=== PATIENT | female | born 1940 | race Caucasian/White ===

== ENCOUNTER 2020-03-07 12:19 | Outpatient (REF) | payer MEDICARE, MEDICAID, SELFPAY ==
--- NOTE | 2020-03-07 12:31 | MM_ITS ---
EXAMINATION: MM DIAGNOSTIC DIGITAL BREAST TOMOSYNTHESIS, BILATERAL CLINICAL INFORMATION: Invasive cancer status post right lumpectomy 04/03/2017. Due for yearly. COMPARISON: Mammography: 02/27/2019, 02/25/2018, 04/03/2017, 03/28/2017, 03/18/2017, 02/20/2017 TECHNIQUE: Digital breast tomosynthesis is performed in both the craniocaudal and mediolateral oblique views along with computer-aided detection (CAD). Synthesized 2D images are generated from the tomosynthesis. Additional magnification views right breast are obtained in the CC and ML x2 projections. FINDINGS: There are scattered areas of fibroglandular density (ACR BI-RADS breast composition Category b). There are minor post therapy changes on the right with stable scarring. There is dystrophic calcification and a right biopsy clip marker lower inner quadrant. Parenchymal pattern is similar to prior exams. There is no developing density or interval mass or architectural abnormality. Again, there are multiple bilateral punctate and coarse calcifications. No significant changes from prior studies. Results are provided to the patient at time of visit by the technologist. MM/MM tomosynthesis diagnostic BI IMPRESSION: No significant changes from prior study. Post therapy changes right breast. ASSESSMENT: BI-RADS 2: Benign RECOMMENDATION: Routine annual mammography screening. This patient's information was entered into a reminder system with a target due date for their next mammogram.
== END 2020-03-07 12:20 | disposition home or self-care (01) ==
LOC: HO.MAMMO 12:19
PROVIDERS: Visit Provider Surgery
DX: C50.411 Malignant neoplasm of upper-outer quadrant of right female breast (principal)
CPT/HCPCS: 77062; 77066

== ENCOUNTER 2020-03-15 11:10 | Outpatient (REF) | payer MEDICARE, MEDICAID, SELFPAY | END 2020-03-15 11:11 | disposition home or self-care (01) | LOC: HO.LAB 11:10 | PROVIDERS: PCP Internal Medicine; Visit Provider Internal Medicine | DX: Z20.828 Contact with and (suspected) exposure to other viral communicable diseases (principal) | CPT/HCPCS: 36415; C9803; U0003 ==

== ENCOUNTER 2020-07-14 08:02 | Outpatient (REF) | payer MEDICARE, MEDICAID, SELFPAY ==
--- NOTE | ~2020-07-14 | XR_ITS ---
EXAMINATION: XR KNEE, BILATERAL CLINICAL INFORMATION: Bilateral knee pain COMPARISON: None TECHNIQUE: AP standing views of both knees as well as lateral and sunrise views of both knees. FINDINGS: Right knee: Patient is status post right total knee arthroplasty. Prosthetic components appear in good alignment. No evidence of hardware fracture or loosening. No right knee effusion is noted. Two adjacent bony densities are seen superior and posterior in respect to the patella and may represent calcification within a suprapatellar bursa. Left knee: There is joint space narrowing seen medial more than lateral. There is subchondral cyst formation present. There is significant degenerative joint disease seen involving the patellofemoral joint with prominent facet and femoral head spurring present. No acute fracture. No significant effusion appreciated. XR/XR knee RT 2V IMPRESSION: Status post right total knee arthroplasty, as described, without acute fracture or malalignment of prosthetic components. Calcification seen just superior to the patella, as described. Significant degenerative change of the left knee, as described.
--- NOTE | ~2020-07-14 | XR_ITS ---
EXAMINATION: XR KNEE, BILATERAL CLINICAL INFORMATION: Bilateral knee pain COMPARISON: None TECHNIQUE: AP standing views of both knees as well as lateral and sunrise views of both knees. FINDINGS: Right knee: Patient is status post right total knee arthroplasty. Prosthetic components appear in good alignment. No evidence of hardware fracture or loosening. No right knee effusion is noted. Two adjacent bony densities are seen superior and posterior in respect to the patella and may represent calcification within a suprapatellar bursa. Left knee: There is joint space narrowing seen medial more than lateral. There is subchondral cyst formation present. There is significant degenerative joint disease seen involving the patellofemoral joint with prominent facet and femoral head spurring present. No acute fracture. No significant effusion appreciated. XR/XR knee standing BI IMPRESSION: Status post right total knee arthroplasty, as described, without acute fracture or malalignment of prosthetic components. Calcification seen just superior to the patella, as described. Significant degenerative change of the left knee, as described.
--- NOTE | ~2020-07-14 | XR_ITS ---
EXAMINATION: XR KNEE, BILATERAL CLINICAL INFORMATION: Bilateral knee pain COMPARISON: None TECHNIQUE: AP standing views of both knees as well as lateral and sunrise views of both knees. FINDINGS: Right knee: Patient is status post right total knee arthroplasty. Prosthetic components appear in good alignment. No evidence of hardware fracture or loosening. No right knee effusion is noted. Two adjacent bony densities are seen superior and posterior in respect to the patella and may represent calcification within a suprapatellar bursa. Left knee: There is joint space narrowing seen medial more than lateral. There is subchondral cyst formation present. There is significant degenerative joint disease seen involving the patellofemoral joint with prominent facet and femoral head spurring present. No acute fracture. No significant effusion appreciated. XR/XR knee LT 2V IMPRESSION: Status post right total knee arthroplasty, as described, without acute fracture or malalignment of prosthetic components. Calcification seen just superior to the patella, as described. Significant degenerative change of the left knee, as described.
== END 2020-07-14 08:03 | disposition home or self-care (01) ==
LOC: HO.HOSX 08:02
PROVIDERS: Visit Provider Orthopaedic Surgery
DX: M17.12 Unilateral primary osteoarthritis, left knee (principal); I48.91 Unspecified atrial fibrillation; Z79.01 Long term (current) use of anticoagulants
CPT/HCPCS: 73560; 73565; 99202

== ENCOUNTER → 2020-08-25 09:58 | Outpatient (BNVA) | payer MEDICARE, MEDICAID, SELFPAY | PROVIDERS: PCP Internal Medicine; Visit Provider Orthopaedic Surgery ==

== ENCOUNTER → 2020-09-22 13:09 | Outpatient (BNVA) | payer MEDICARE, MEDICAID, SELFPAY | PROVIDERS: Visit Provider Physician Assistant | DX: M17.12 Unilateral primary osteoarthritis, left knee (principal) | CPT/HCPCS: 99212 ==

== ENCOUNTER 2020-09-26 09:00 | Outpatient (RCR) | payer MEDICARE, MEDICAID, SELFPAY | END 2021-09-22 13:27 | disposition home or self-care (01) | LOC: HO.PTWFD 09:00 | PROVIDERS: PCP Internal Medicine; Visit Provider Orthopaedic Surgery | DX: M17.12 Unilateral primary osteoarthritis, left knee (principal) | CPT/HCPCS: 97110; 97116; 97161; 97535 ==

== ENCOUNTER 2020-09-27 06:06 | Day surgery (SDC) | payer MEDICARE, MEDICAID, SELFPAY ==
--- NOTE | 2020-09-19 11:43 | HO.ANESPROP2 ---
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 on right Eliquis for afib PCP cleared Cardiac cleared NO BP/IV on RIGHT PMFSH Active Problems Active Problems: All Active Problems (Updated 09/19/20 @ 09:27 by Tanisha Vidal) Malignant neoplasm of upper-outer quadrant of right female breast (Acute) Osteoarthritis of left knee (Acute) Past Medical History Medical History Afib Asthma Breast cancer Chronic cough CKD (chronic kidney disease), stage III COVID-19 vaccine series completed Deafness in right ear GERD (gastroesophageal reflux disease) High blood pressure High cholesterol History of syncope On anticoagulant therapy On beta sloan at home Osteoarthritis of left knee Post-nasal drip Family History Family history of problems with anesthesia: No Surgical History Surgical History H/O eye surgery H/O lumpectomy History of appendectomy Hx of cataract extraction Hx of colonoscopy Status post right knee replacement History of Problems with Anesthesia: No Social History Social History Are you a primary care management coordinator to a significant other at home: No Do you presently have visiting nurse or other home services: No Patient Tobacco Use Status: Never used Tobacco Use of substances other than those prescribed or required for medical reasons: No Have you been hit, kicked, punched, or otherwise hurt by someone within the past year? If so, by whom?: No Are you DNR?: No Advance Directives: No Advance Directives Information Provided: No Advance Directives on File: No Recently lost weight without trying: No Eating poorly because of decreased appetite: No Nutrition Risks: No Nutritional Risk Patient : No Current occupational status: retired Current occupation: rt handed Narrative Narrative: No recent illness No CP/SOB within limits of knee pain Meds Allergies Allergy/AdvReac Type Severity Reaction Status Date / Time dorzolamide [DORZOLAMIDE] Allergy Intermediate ITCHING, Verified 09/19/20 09:19 SEVERE EYE REDNESS, redness, discharge from eyes certain eye drop (pt unsure) Allergy Unknown inflammatio Uncoded 09/19/20 09:19 n Home Medications Medication Instructions Recorded Confirmed Last Taken Type aspirin 81 mg chewable tablet 81 mg PO BEDTIME 07/14/20 09/19/20 Unknown History flecainide 50 mg tablet 50 mg PO Q12H 07/14/20 09/19/20 09/27/20 History montelukast 10 mg tablet 10 mg PO BEDTIME 07/14/20 09/19/20 Unknown History albuterol sulfate [ProAir HFA] 1 inh INHALATION QID PRN 09/19/20 09/19/20 Unknown History amlodipine 1 tab PO DAILY 09/19/20 09/19/20 09/27/20 History apixaban [Eliquis] 1 tab PO BID 09/19/20 09/19/20 09/23/20 History atorvastatin 1 tab PO BEDTIME 09/19/20 09/19/20 Unknown History betamethasone dipropionate 1 applic TOPICAL BID 09/19/20 09/19/20 Unknown History bisoprolol fumarate 5 mg PO DAILY 09/19/20 09/19/20 Unknown History calcium carbonate [Calcium 500] 1,000 mg PO BEDTIME 09/19/20 09/19/20 Unknown History cholecalciferol (vitamin D3) 25 mcg PO DAILY 09/19/20 09/19/20 Unknown History [Vitamin D3] famotidine [Pepcid AC] 10 mg PO DAILY 09/19/20 09/19/20 Unknown History fluticasone propionate 1 spray INTRANASAL DAILY 09/19/20 09/19/20 Unknown History irbesartan 1 tab PO DAILY 09/19/20 09/19/20 09/27/20 History latanoprost 1 drp OPHTHALMIC (EYE) BEDTIME 09/19/20 09/19/20 Unknown History lorazepam 1 tab PO DAILY PRN 09/19/20 09/19/20 Unknown History Exam Exam Date and Time: September 19, 2020 1143 Pertinent Lab Results Pertinent Lab Results: Lab Results 09/19/20 09/19/20 Range/Units 13:28 Unknown Nasal Screen MRSA (PCR) NEGATIVE (Negative) Nasal S. aureus Screen NEGATIVE (Negative) Nasal MRSA/S.aureus Interp SEE NOTE Blood Type O Positive Antibody Screen NEGATIVE Na 135 K 4.9 Cl 98 Bicarb 28 BUN 22 Creat 1.1 eGFR 49 WBC 8.2 Hgb 12.3 Hct 38.7 Plt 323 Narrative Narrative: EKG 08/2020 SR with 1st deg AV block Incomp RBBB No significant change from 07/2020 Airway Mallampati Class: II TM Dist: >3cm Neck ROM: Full Partial: Upper Loose/Missing/Broken Teeth: No Heart: silver, sinus Lungs: CTAB Assessment and Plan Assessment Anesthesia Assessment: Anesthesia Plan Discussed and PAT Visit Documented by User: Rachel Hawkins 09/27/20 07:18 PMFSH Past Medical History Medical History Afib Asthma Breast cancer Chronic cough CKD (chronic kidney disease), stage III COVID-19 vaccine series completed Deafness in right ear GERD (gastroesophageal reflux disease) High blood pressure High cholesterol History of syncope On anticoagulant therapy On beta sloan at home Osteoarthritis of left knee Post-nasal drip Surgical History Surgical History H/O eye surgery H/O lumpectomy History of appendectomy Hx of cataract extraction Hx of colonoscopy Status post right knee replacement Social History Social History Are you a primary care management coordinator to a significant other at home: No Do you presently have visiting nurse or other home services: No Patient Tobacco Use Status: Never used Tobacco Use of substances other than those prescribed or required for medical reasons: No Have you been hit, kicked, punched, or otherwise hurt by someone within the past year? If so, by whom?: No Are you DNR?: No Advance Directives: No Advance Directives Information Provided: No Advance Directives on File: No Recently lost weight without trying: No Eating poorly because of decreased appetite: No Nutrition Risks: No Nutritional Risk Patient : No Current occupational status: retired Current occupation: rt handed Meds Allergies Allergy/AdvReac Type Severity Reaction Status Date / Time dorzolamide [DORZOLAMIDE] Allergy Intermediate ITCHING, Verified 09/19/20 09:19 SEVERE EYE REDNESS, redness, discharge from eyes certain eye drop (pt unsure) Allergy Unknown inflammatio Uncoded 09/19/20 09:19 n Home Medications Medication Instructions Recorded Confirmed Last Taken Type aspirin 81 mg chewable tablet 81 mg PO BEDTIME 07/14/20 09/19/20 Unknown History flecainide 50 mg tablet 50 mg PO Q12H 07/14/20 09/19/20 09/27/20 History montelukast 10 mg tablet 10 mg PO BEDTIME 07/14/20 09/19/20 Unknown History albuterol sulfate [ProAir HFA] 1 inh INHALATION QID PRN 09/19/20 09/19/20 Unknown History amlodipine 1 tab PO DAILY 09/19/20 09/19/20 09/27/20 History apixaban [Eliquis] 1 tab PO BID 09/19/20 09/19/20 09/23/20 History atorvastatin 1 tab PO BEDTIME 09/19/20 09/19/20 Unknown History betamethasone dipropionate 1 applic TOPICAL BID 09/19/20 09/19/20 Unknown History bisoprolol fumarate 5 mg PO DAILY 09/19/20 09/19/20 Unknown History calcium carbonate [Calcium 500] 1,000 mg PO BEDTIME 09/19/20 09/19/20 Unknown History cholecalciferol (vitamin D3) 25 mcg PO DAILY 09/19/20 09/19/20 Unknown History [Vitamin D3] famotidine [Pepcid AC] 10 mg PO DAILY 09/19/20 09/19/20 Unknown History fluticasone propionate 1 spray INTRANASAL DAILY 09/19/20 09/19/20 Unknown History irbesartan 1 tab PO DAILY 09/19/20 09/19/20 09/27/20 History latanoprost 1 drp OPHTHALMIC (EYE) BEDTIME 09/19/20 09/19/20 Unknown History lorazepam 1 tab PO DAILY PRN 09/19/20 09/19/20 Unknown History Assessment and Plan Assessment Anesthesia Assessment: Anesthesia Plan Discussed and Chart Reviewed Final Anesthetic Review NPO: Yes ASA Class: III Final Preanesthetic Review: No Changes in Pt Med Stat, Meds/Allgs Chart Reviewed and Consent Obtained/Reviewed Patient Risk: Intermediate Procedure Risk: Intermediate Assessment/Block/Sedation in SS: Assess/Block/Sedation-SS Anesthetic Plan Anesthetic Plan: MAC:, Spinal and Regional Block Disposition: Standard PACU
[2020-09-19 12:20] VITALS: BP 162/72; PULSE 58; RESP 20; O2SAT 97; BMI 31.8
[2020-09-19 15:06] LABS: MRSA Nasal PCR NEGATIVE (Negative); SA Nasal PCR NEGATIVE (Negative)
[2020-09-27] VITALS (21 sets, daily range): BP systolic 101–154; BP diastolic 40–67; PULSE 55–71; RESP 12–18; TEMP 35.7–36.6; O2SAT 90–100
--- NOTE | 2020-09-27 | ECG_ITS ---
Test Reason : Syncope, 1 degree block on monitor Blood Pressure : / mmHG Vent. Rate : 081 BPM Atrial Rate : 081 BPM P-R Int : 238 ms QRS Dur : 098 ms QT Int : 370 ms P-R-T Axes : 101 026 050 degrees QTc Int : 429 ms Sinus rhythm with 1st degree A-V block RSR' or QR pattern in V1 suggests right ventricular conduction delay Borderline ECG When compared with ECG of 04-DEC-2019 20:17, No significant change was found Referred By: Robin River Electronically Signed By:LORRAINE BRIONES MD
--- NOTE | ~2020-09-27 | XR_ITS ---
EXAMINATION: XR KNEE, LEFT CLINICAL INFORMATION: Status post left total knee arthroplasty. COMPARISON: Standing AP knees and left knee 07/14/2020. TECHNIQUE: AP and cross table lateral views of the left knee are obtained. FINDINGS: There has been total left knee arthroplasty. The hardware is intact. There is no fracture or dislocation or destructive process. There are overlying skin kacie, subcutaneous emphysema and effusion as expected. XR/XR knee LT 2V IMPRESSION: Status post left total knee arthroplasty.
[2020-09-27 06:51] LABS: COVID-19 Test Negative (Negative)
[2020-09-27] MEDS: Lactated Ringers 1,000 ML 80 ML IVCONT (07:07)
--- NOTE | 2020-09-27 07:11 | PC.NURSE ---
dr morales at bedside doing regional block pt tolerated well
--- NOTE | 2020-09-27 07:15 | PC.NURSE ---
pt resting comfortably after block denies pain pwd nad ls clear resp easy and reg
--- NOTE | 2020-09-27 07:27 | MHC.SHP ---
Pre-Procedural Eval Section A Date of Service: 09/27/20 The patient is an INPATIENT: No Changes since office visit: Yes Patient answered all questions; No Cold of Flu in the past 2 weeks, No New Medical Problems and No Changes in Medication The History & Physical has been completed within 30 days and I have reviewed it.: Yes Section B Chief Complaint: Right total knee arthroplasty Allergies: Allergies Allergy/AdvReac Type Severity Reaction Status Date / Time dorzolamide [DORZOLAMIDE] Allergy Intermediate ITCHING, Verified 09/19/20 09:19 SEVERE EYE REDNESS, redness, discharge from eyes certain eye drop (pt unsure) Allergy Unknown inflammatio Uncoded 09/19/20 09:19 n Plan I have reviewed the history and physical and performed a pertinent physical examination on my patient. No changes have occurred unless specified.
--- NOTE | 2020-09-27 09:20 | PM.OP ---
Brief Operative Note Date of Service: 09/27/20 Pre-op diagnosis: left knee OA Post-op diagnosis: same Procedure: Left TKA Implants: [place] [employer] 3CR/06/21/28 Surgeon: Hal Sal MD Anesthesia: regional and spinal Was an Personalization Specialist used for this Procedure?: Yes Personalization Specialist: Billy Fajardo Estimated blood loss (mL): 100 IV fluids (mL): 1,000 Pathology: other Condition: stable Disposition: PACU
--- NOTE | 2020-09-27 09:21 | P.OP_ITS ---
Operative Note Operative Note Date of Service: 09/27/20 Narrative: Pre-op diagnosis: left knee OA Post-op diagnosis: same Procedure: Left TKA Implants: [place] tri[employer] 3CR/06/21/28 Surgeon: Hal Sal MD Anesthesia: regional and spinal Was an Construction Project Administrator used for this Procedure?: Yes Construction Project Administrator: Billy Fajardo Estimated blood loss (mL): 100 IV fluids (mL): 1,000 Pathology: other Condition: stable Disposition: PACU Procedure in detail: Patient was brought to the operating room and prepped and draped in standard sterile fashion. A time-out was called to identify proper site proper procedure proper surgeon IV antibiotics were administered. 1 g of IV tranexamic acid was also administered. I began by making a midline incision to the retinaculum and performed a medial parapatellar arthrotomy. The patella was translated laterally and the knee was flexed up. ___There was tricomparmental OA with patellar and lateral eburnation. I performed a small medial peel and resected the infrapatellar fat pad. Ringgold's line was then used to drill my intramedullary femoral guide and my distal femur cut was made in 5 degrees of valgus. I then measured a # _3__ femur and placed my cutting guide and made my anterior posterior and chamfer cuts protecting the soft tissues at all times. Once I was satisfied with my cut I turned my attention to the tibia. I removed the meniscus and , using an external cutting guide, in line with the tibial crest and the third ray, I made my distal tibial cut ( 3 deg slope) while protecting the PCL the posterior soft tissues at all times. An extension block was used to confirm appropriate amount of bony resection. I then sized a #_4__ tibia and once I was satisfied that there was good tibial coverage I placed my trial and with the trial femur in place took the knee through range of motion. I wassatisfied with the extension and flexion as well as the stability at 0, 30 and 90 degrees. I then turned my attention to the patella where I removed 1 cm from the undersurface of the patella and then trialed a ___29a___ patellar button. Again the knee was taken through range of motion I was happy with the tracking. I then returned to the femur and drilled my femoral lug holes and prepared the tibia. Femoral bone plug was then placed and the knee was irrigated copiously. I then press fit the patella, tibia and femur in standard fashion. I trialed different inserts until I selected a #___13mm_ insert. The final insert was placed and a 3 minutes iodine soak with local TXA was performed. The knee was then closed with a running Quill suture, a 3 0 Vicryl and kacie on the skin. Patient was then placed in sterile dressing and brought to recovery room in stable condition there were no known complications.
[2020-09-27] MEDS: oxyCODONE HCl Immed Release 5 MG TABLET PO ×3 (12:11→20:16)
[2020-09-27] MEDS: Dextrose 5 % and 0.45 % NaCl 1,000 ML 80 ML IVCONT (13:34)
--- NOTE | 2020-09-27 14:42 | PM.EVENT ---
Event Note Date of Service: 09/27/20 Event Note: Rapid Response called on patient. Patient was in the seat when I arrived. Reportedly she was working with PT when she began feeling lightheaded and faint so she was brought to the chair. No actual loss of consciousness. Saturations in the 90s, BP checked several times, reading in the 50s and 60s systolic. Patient remained alert and was talking the entire time. She was placed in the recliner. She slowly began to improve slowly. A/P Suspected orthostatic near syncope Will give NS bolus x 1L Check stat labs Place on radioactivity technician
--- NOTE | 2020-09-27 15:30 | PM.IMCN ---
History of Present Illness Data of Consult Service Date: 09/27/20 Requesting physician: Hal Sal Primary Care Provider: Amairani Jansen MD [facility] Reason for consult: Medical Management This is a 80 yo F with a PMH of HTN, HLD, A. Fib - maintained in sinus with flecainide and on Eliquis, Glaucoma who is admitted under the orthopedic surgery for scheduled L TKA. Medical consultation sought for management of her chronic medical issues. Patient is seen and examined in her room. She was shortly evaluated prior to this after a rapid response was called for near syncope. She now is sitting comfortably in her chair and has no complaints. She denies any chest pain or shortness of breath. She reports a history of A. Fib - maintained on sinus with flecainide, on Eliquis for anticoagulation. She denies a history of CHF. Review of Systems Review of Systems: General - denies fevers or chills, denies weakness or fatigue HEENT -denies blurred vision, denies headache, denies sore throat Cardiovascular - denies chest pain or palpitations, denies edema Respiratory - denies shortness of breath, coughing, wheezing Gastrointestinal - denies abdominal pain, nausea, vomiting, diarrhea - denies flank pain, denies dysuria, denies frequency or urgency Musculoskeletal - denies back pain, denies hip pain, denies knee pain, denies shoulder pain Neurological - denies any focal weakness or numbness Skin, denies any bruising or redness Psychiatric - denies any suicidal ideation, hallucinations, homicidal ideation Endocrinology - denies intolerance to hot / cold temperatures [facility] Medical History Afib Asthma Breast cancer Chronic cough CKD (chronic kidney disease), stage III COVID-19 vaccine series completed Deafness in right ear GERD (gastroesophageal reflux disease) High blood pressure High cholesterol History of syncope On anticoagulant therapy On beta sloan at home Osteoarthritis of left knee Post-nasal drip Surgical History H/O eye surgery H/O lumpectomy History of appendectomy Hx of cataract extraction Hx of colonoscopy Status post right knee replacement Social History Are you a primary career discovery teacher to a significant other at home: No Do you presently have visiting nurse or other home services: No Patient Tobacco Use Status: Never used Tobacco Use of substances other than those prescribed or required for medical reasons: No Have you been hit, kicked, punched, or otherwise hurt by someone within the past year? If so, by whom?: No Are you DNR?: No Advance Directives: No Advance Directives Information Provided: No Advance Directives on File: No Recently lost weight without trying: No Eating poorly because of decreased appetite: No Nutrition Risks: No Nutritional Risk Patient : No Current occupational status: retired Current occupation: rt handed Meds Allergies Allergy/AdvReac Type Severity Reaction Status Date / Time dorzolamide [DORZOLAMIDE] Allergy Intermediate ITCHING, Verified 09/19/20 09:19 SEVERE EYE REDNESS, redness, discharge from eyes certain eye drop (pt unsure) Allergy Unknown inflammatio Uncoded 09/19/20 09:19 n Active Medications: Current Medications Generic Name Dose Route Start Last Admin Trade Name Freq PRN Reason Stop Dose Admin Acetaminophen 650 mg 09/27/20 13:11 Acetaminophen 325 Mg Tablet PO Q6H PRN Pain, Mild (Pain Scale 1-3) Atorvastatin Calcium 20 mg 09/27/20 21:00 Atorvastatin Calcium 20 Mg Tablet PO BEDTIME TONY Bisoprolol Fumarate 5 mg 09/28/20 09:00 Bisoprolol Fumarate 5 Mg Tablet PO DAILY TONY Calcium Carbonate 1,000 mg 09/27/20 21:00 Calcium Carbonate 500 Mg Tablet PO BEDTIME TONY Celecoxib 200 mg 09/27/20 21:00 Celecoxib 200 Mg Capsule PO BID TONY Docusate Sodium 100 mg 09/27/20 21:00 Docusate Sodium 100 Mg Capsule PO BID TONY Famotidine 10 mg 09/28/20 09:00 Famotidine 20 Mg Tablet PO DAILY TONY Flecainide Acetate 50 mg 09/27/20 20:00 Flecainide Acetate 50 Mg Tablet PO Q12H TONY Hydromorphone HCl 0.25 mg 09/27/20 13:11 Hydromorphone Hcl 0.5 Mg/0.5 Ml Syringe IVPUSH Q4H PRN Pain, Severe (Pain Scale 7-10) Dextrose/Sodium Chloride 1,000 mls @ 80 mls/hr 09/27/20 13:11 09/27/20 13:34 D51/2ns IVCONT 80 mls/hr .[id number] [facility] Administration Sodium Chloride 1,000 mls @ 999 mls/hr 09/27/20 14:45 Ns IV 09/27/20 15:45 .Q1H1M [facility] Latanoprost 1 drop 09/27/20 21:00 Latanoprost 0.005 % Ophth Armida 2.5 Ml Drops EYE-BOTH BEDTIME [facility] Naloxone HCl 0.2 mg 09/27/20 13:11 Naloxone Hcl 0.4 Mg/Ml Vial IVPUSH Q2M PRN Excessive sedation or RR < 8 Ondansetron HCl 4 mg 09/27/20 13:11 Ondansetron Hcl 4 Mg/2 Ml Vial IVPUSH Q8H PRN Nausea and Vomiting Oxycodone HCl 5 mg 09/27/20 16:00 Oxycodone Hcl Immed Release 5 Mg Tablet PO Q4H [facility] Sodium Chloride 3 ml 09/27/20 16:00 0.9 % Sodium Chloride Flush 3 Ml Syringe IVFLUSH QSHIFT [facility] Vitamin D 25 mcg 09/28/20 09:00 Cholecalciferol (Vitamin D3) 25 Mcg Tablet PO DAILY [facility] Home Medications Medication Instructions Recorded Confirmed Last Taken Type aspirin 81 mg chewable tablet 81 mg PO BEDTIME 07/14/20 09/19/20 Unknown History montelukast 10 mg tablet 10 mg PO BEDTIME 07/14/20 09/19/20 Unknown History albuterol sulfate [ProAir HFA] 1 inh INHALATION QID PRN 09/19/20 09/19/20 Unknown History amlodipine 1 tab PO DAILY 09/19/20 09/19/20 09/27/20 History apixaban [Eliquis] 1 tab PO BID 09/19/20 09/19/20 09/23/20 History atorvastatin 1 tab PO BEDTIME 09/19/20 09/19/20 Unknown History betamethasone dipropionate 1 applic TOPICAL BID 09/19/20 09/19/20 Unknown History bisoprolol fumarate 5 mg PO DAILY 09/19/20 09/19/20 Unknown History calcium carbonate [Calcium 500] 1,000 mg PO BEDTIME 09/19/20 09/19/20 Unknown History cholecalciferol (vitamin D3) 25 mcg PO DAILY 09/19/20 09/19/20 Unknown History [Vitamin D3] famotidine [Pepcid AC] 10 mg PO DAILY 09/19/20 09/19/20 Unknown History fluticasone propionate 1 spray INTRANASAL DAILY 09/19/20 09/19/20 Unknown History irbesartan 1 tab PO DAILY 09/19/20 09/19/20 09/27/20 History latanoprost 1 drp OPHTHALMIC (EYE) BEDTIME 09/19/20 09/19/20 Unknown History lorazepam 1 tab PO DAILY PRN 09/19/20 09/19/20 Unknown History flecainide 1 tab PO Q12H 09/27/20 09/27/20 Unknown History Physical Exam Vital Signs and Narrative: Vital Signs: Last Vital Signs Temp 96.2 F L 09/27/20 15:26 Pulse 65 09/27/20 15:26 Resp 12 09/27/20 15:26 BP 122/40 L 09/27/20 15:26 Pulse Ox 100 09/27/20 15:26 Body Mass Index 31.8 Const: Other: General - no acute distress, appears comfortable Cardiovascular - RRR on exam Lungs - normal respiratory effort, clear to auscultation bilaterally, no wheezing Abdomen - soft, nontender, no rebound or guarding Extremities - no edema Neuro - awake and alert, no focal deficits Results Labs Labs: Laboratory Results - last 24 hr 09/27/20 06:15 COVID-19 (MARNIE) Negative COVID-19 Clin Com See Note Imaging Radiologist's Impressions: Impressions Knee X-Ray 09/27/20 09:50 IMPRESSION: Status post left total knee arthroplasty. Assessment and Plan (1) Osteoarthritis of left knee: Status: Acute This is a 80 yo F with a PMH of A. Fib on flec and eliquis who is admitted after L TKA. 1. Syncope suspected orthostatic -- bp as in the 60s while sitting. Improved to 122/40 with 1L IVF will check labs and place on tele over night 2. A. Fib clinically appears to be in Sinus. Continue BB and flecainide continue Eliquis when okay from surgical perspective 3. HTN hold BP meds (minus BB for A. Fib) 4. HLD statin Will Follow
[2020-09-27 15:37] LABS: Hematocrit 31.9 % (37-47); Hemoglobin 10.4 g/dl (12.0-16.0); Mean Corpuscular HGB Conc 32.6 g/dl (31.0-35.0); Mean Corpuscular Volume 95.2 fL (80-98); Mean Platelet Volume 9.1 fL (9.4-12.3); Platelet Count 273 X10*3/uL (160-400); Red Blood Count 3.35 X10*6/uL (4.20-5.50); Red Cell Distribution Width 13.7 % (11.0-16.0); White Blood Count 17.4 X10*3/uL (4.8-10.8)
[2020-09-27] MEDS: 0.9 % Sodium Chloride 1,000 ML 999 ML IV (15:37)
[2020-09-27] MEDS: Acetaminophen 325 MG TABLET 650 MG PO (15:37)
[2020-09-27 16:08] LABS: Anion Gap 16 (12-20); Blood Urea Nitrogen 36 mg/dL (9-16); Calcium 9.2 mg/dL (8.4-10.2); Carbon Dioxide 22 mmol/L (22-29); Chloride 103 mmol/L (96-108); Creatinine Clr Calc Pharmacy 40.5; Estimated Glomerular Filt Rate 46; Glucose Random 219 mg/dL (60-115); Potassium 5.1 mmol/L (3.3-5.1); Sodium 136 mmol/L (135-145)
--- NOTE | 2020-09-27 18:12 | PC.NURSE ---
around 1500 pt was working with PT for the first time s/p left total knee replacement. rapid response called. this nurse responded to call and pt was awake, but vague, pale, cool and clammy. BP checked and found to be 30s/20, recheck was 40s/20s with automated cuff, SPO2 was also low in the 70s-80s. Manual BP showed 60/40 and oxygen had come up to 100% on 2L. pt answering questions appropriately, but reported changes in vision. MD in room ordered a bolus of NS. administered bolus and rechecked BP, came up to 122/40. 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 Pt now resting comfortably, vision back to baseline and no other symptoms reported, back in bed. Will cont to monitor and assess.
[2020-09-27] MEDS: Celecoxib 200 MG CAPSULE PO (20:17)
[2020-09-27] MEDS: Docusate Sodium 100 MG CAPSULE PO (20:17)
[2020-09-27] MEDS: Flecainide Acetate 50 MG TABLET PO (20:17)
[2020-09-27] MEDS: Atorvastatin Calcium 20 MG TABLET PO (20:17)
[2020-09-27] MEDS: HYDROmorphone HCl 0.5 MG/0.5 ML SYRINGE 0.25 MG IVPUSH (22:01)
[2020-09-28] VITALS (16 sets, daily range): BP systolic 106–142; BP diastolic 46–65; PULSE 68–81; RESP 16–18; TEMP 36.1–36.5; O2SAT 93–95
[2020-09-28] MEDS: oxyCODONE HCl Immed Release 5 MG TABLET PO ×5 (00:37→19:43)
[2020-09-28] MEDS: Dextrose 5 % and 0.45 % NaCl 1,000 ML 80 ML IVCONT (03:09)
[2020-09-28] MEDS: HYDROmorphone HCl 0.5 MG/0.5 ML SYRINGE 0.25 MG IVPUSH ×3 (03:16→21:23)
[2020-09-28 07:32] LABS: Anion Gap 13 (12-20); Blood Urea Nitrogen 25 mg/dL (9-16); Calcium 9.2 mg/dL (8.4-10.2); Carbon Dioxide 26 mmol/L (22-29); Chloride 101 mmol/L (96-108); Creatinine Clr Calc Pharmacy 54.2; Estimated Glomerular Filt Rate > 60; Glucose Fasting 137 mg/dL (60-99); Potassium 5.7 mmol/L (3.3-5.1); Sodium 134 mmol/L (135-145)
--- NOTE | 2020-09-28 08:02 | PM.PNORT ---
Subjective Subjective Date of Service: 09/28/20 Interval history: POD1 s/p LTKA with Dr. Sal. Patient is resting comfortably in bed. Yesterday had a near syncopal episode after standing and working with P.T. She was given a bolus and today states that she is feeling better. Pain is well managed. Physical Exam Vital Signs: Vital Signs: Last Vital Signs Temp 97.2 F 09/28/20 07:33 Pulse 71 09/28/20 07:33 Resp 17 09/28/20 07:33 BP 127/60 09/28/20 07:33 Pulse Ox 95 09/28/20 07:33 Body Mass Index 31.8 Const: General: cooperative, healthy appearing and no acute distress Resp: Effort & Inspection: normal respiratory effort and able to speak in complete sentences Cardio: Rate: regular rate Peripheral pulses: Peripheral pulses 2+ throughout GI: Palpation (GI): Soft to palpation Skin: Lesions: no lesions Rashes: no rashes Extrem: Other: Left hip no ecchymosis, redness, or drainage. Aquacel dressing is clean, dry and intact. NVI. Progress Note: A&P Assessment and plan (1) Status post total knee replacement, left: Status: Acute Assessment and Plan: Continue pain mgmnt Begin Lovenox for the first 48 hours post operatively and then resume Eliquis 5mg for one day and then return to regular 5mg BID dose for dvt ppx Continue PT for LTKA Dispo planning-Pending PT eval, pain mgmnt Fall Risk Details Current Medications: Current Medications Generic Name Dose Route Start Last Admin Trade Name Freq PRN Reason Stop Dose Admin Acetaminophen 650 mg 09/27/20 13:11 09/27/20 15:37 Acetaminophen 325 Mg Tablet PO 650 mg Q6H PRN Administration Pain, Mild (Pain Scale 1-3) Apixaban 5 mg 09/29/20 20:00 Apixaban 5 Mg Tablet PO 09/29/20 20:01 ONCE ONE Apixaban 5 mg 09/30/20 09:00 Apixaban 5 Mg Tablet PO BID TONY Atorvastatin Calcium 20 mg 09/27/20 21:00 09/27/20 20:17 Atorvastatin Calcium 20 Mg Tablet PO 20 mg BEDTIME TONY Administration Bisoprolol Fumarate 5 mg 09/28/20 09:00 Bisoprolol Fumarate 5 Mg Tablet PO DAILY TONY Calcium Carbonate 1,000 mg 09/27/20 21:00 09/27/20 20:17 Calcium Carbonate 500 Mg Tablet PO 1,000 mg BEDTIME [facility] Administration Celecoxib 200 mg 09/27/20 21:00 09/27/20 20:17 Celecoxib 200 Mg Capsule PO 200 mg BID [facility] Administration Docusate Sodium 100 mg 09/27/20 21:00 09/27/20 20:17 Docusate Sodium 100 Mg Capsule PO 100 mg BID [facility] Administration Enoxaparin Sodium 40 mg 09/28/20 08:00 Enoxaparin Sodium 40 Mg/0.4 Ml Syringe SUBCUT 09/29/20 08:01 Q24H [facility] Famotidine 10 mg 09/28/20 09:00 Famotidine 20 Mg Tablet PO DAILY [facility] Flecainide Acetate 50 mg 09/27/20 20:00 09/27/20 20:17 Flecainide Acetate 50 Mg Tablet PO 50 mg Q12H [facility]ONY Administration Hydromorphone HCl 0.25 mg 09/27/20 13:11 09/28/20 03:16 Hydromorphone Hcl 0.5 Mg/0.5 Ml Syringe IVPUSH 0.25 mg Q4H PRN Administration Pain, Severe (Pain Scale 7-10) Dextrose/Sodium Chloride 1,000 mls @ 80 mls/hr 09/27/20 13:11 09/28/20 03:09 D51/2ns IVCONT 80 mls/hr .[id number] [facility] Administration Latanoprost 1 drop 09/27/20 21:00 09/27/20 20:19 Latanoprost 0.005 % Ophth Armida 2.5 Ml Drops EYE-BOTH Not Given BEDTIME [facility] Naloxone HCl 0.2 mg 09/27/20 13:11 Naloxone Hcl 0.4 Mg/Ml Vial IVPUSH Q2M PRN Excessive sedation or RR < 8 Ondansetron HCl 4 mg 09/27/20 13:11 Ondansetron Hcl 4 Mg/2 Ml Vial IVPUSH Q8H PRN Nausea and Vomiting Oxycodone HCl 5 mg 09/27/20 16:00 09/28/20 05:33 Oxycodone Hcl Immed Release 5 Mg Tablet PO Not Given Q4H [facility] Sodium Chloride 3 ml 09/27/20 16:00 09/27/20 20:20 0.9 % Sodium Chloride Flush 3 Ml Syringe IVFLUSH Not Given QSHIFT TONY Vitamin D 25 mcg 09/28/20 09:00 Cholecalciferol (Vitamin D3) 25 Mcg Tablet PO DAILY TONY Time Spent With Patient Time: Total time spent is greater than 50% in coordination of care (as documented) at patient's floor/unit and/or counseling patient: Time with patient: less than 15 minutes Procedures Date of Service Date of Service: 09/28/20 Quality Stroke Does the patient have a stroke diagnosis?: No VTE Prior VTE?: No VTE Risk Level:: Surgical - high VTE Device Contraindication: N/A - Device Ordered VTE Drug Contraindication: N/A - Med Ordered
[2020-09-28] MEDS: Docusate Sodium 100 MG CAPSULE PO ×2 (08:45→19:43)
[2020-09-28] MEDS: Celecoxib 200 MG CAPSULE PO ×2 (08:45→19:43)
[2020-09-28] MEDS: Famotidine 20 MG TABLET 10 MG PO (08:45)
[2020-09-28] MEDS: Flecainide Acetate 50 MG TABLET PO ×2 (08:45→19:43)
[2020-09-28] MEDS: Acetaminophen 325 MG TABLET 650 MG PO (08:46)
[2020-09-28] MEDS: Cholecalciferol (Vitamin D3) 25 MCG TABLET PO (08:46)
[2020-09-28] MEDS: Enoxaparin Sodium 40 MG/0.4 ML SYRINGE SUBCUT (08:46)
[2020-09-28 10:24] LABS: Potassium 5.4 mmol/L (3.3-5.1)
[2020-09-28] MEDS: ondansetron HCL 4 MG/2 ML VIAL IVPUSH (10:40)
--- NOTE | 2020-09-28 11:15 | P.PNIM_ITS ---
Subjective Subjective Date of Service: 09/28/20 Interval History: seen and examined this AM became orthostatic when working with PT denies any other complaints ROS General - no fevers or chills Cardiovascular - no chest pain Respiratory - no shortness of breath or cough Abdominal- no abdominal pain, nausea, vomiting, diarrhea Physical Exam Vital Signs: Vital Signs: Last Vital Signs Temp 97.2 F 09/28/20 07:33 Pulse 73 09/28/20 10:49 Resp 17 09/28/20 07:33 BP 127/56 L 09/28/20 10:49 Pulse Ox 95 09/28/20 07:33 Body Mass Index 31.8 Const: Other: General - no acute distress, appears comfortable Cardiovascular - RRR on exam Lungs - normal respiratory effort, clear to auscultation bilaterally, no wheezing Abdomen - soft, nontender, no rebound or guarding Extremities - no edema Neuro - awake and alert, no focal deficits Objective Data Current Medications Generic Name Dose Route Start Last Admin Trade Name Freq PRN Reason Stop Dose Admin Acetaminophen 650 mg 09/27/20 13:11 09/28/20 08:46 Acetaminophen 325 Mg Tablet PO 650 mg Q6H PRN Administration Pain, Mild (Pain Scale 1-3) Apixaban 5 mg 09/29/20 20:00 Apixaban 5 Mg Tablet PO 09/29/20 20:01 ONCE ONE Apixaban 5 mg 09/30/20 09:00 Apixaban 5 Mg Tablet PO BID TONY Atorvastatin Calcium 20 mg 09/27/20 21:00 09/27/20 20:17 Atorvastatin Calcium 20 Mg Tablet PO 20 mg BEDTIME TONY Administration Calcium Carbonate 1,000 mg 09/27/20 21:00 09/27/20 20:17 Calcium Carbonate 500 Mg Tablet PO 1,000 mg BEDTIME TONY Administration Celecoxib 200 mg 09/27/20 21:00 09/28/20 08:45 Celecoxib 200 Mg Capsule PO 200 mg BID TONY Administration Docusate Sodium 100 mg 09/27/20 21:00 09/28/20 08:45 Docusate Sodium 100 Mg Capsule PO 100 mg BID TONY Administration Enoxaparin Sodium 40 mg 09/28/20 08:00 09/28/20 08:46 Enoxaparin Sodium 40 Mg/0.4 Ml Syringe SUBCUT 09/29/20 08:01 40 mg Q24H TONY Administration Famotidine 10 mg 09/28/20 09:00 09/28/20 08:45 Famotidine 20 Mg Tablet PO 10 mg DAILY TONY Administration Flecainide Acetate 50 mg 09/27/20 20:00 09/28/20 08:45 Flecainide Acetate 50 Mg Tablet PO 50 mg Q12H [facility]ONY Administration Hydromorphone HCl 0.25 mg 09/27/20 13:11 09/28/20 10:40 Hydromorphone Hcl 0.5 Mg/0.5 Ml Syringe IVPUSH 0.25 mg Q4H PRN Administration Pain, Severe (Pain Scale 7-10) Lactated Ringer's 1,000 mls @ 250 mls/hr 09/28/20 11:15 Lr IV 09/28/20 15:14 .Q4H [facility] Latanoprost 1 drop 09/27/20 21:00 09/27/20 20:19 Latanoprost 0.005 % Ophth Armida 2.5 Ml Drops EYE-BOTH Not Given BEDTIME [facility] Naloxone HCl 0.2 mg 09/27/20 13:11 Naloxone Hcl 0.4 Mg/Ml Vial IVPUSH Q2M PRN Excessive sedation or RR < 8 Ondansetron HCl 4 mg 09/27/20 13:11 09/28/20 10:40 Ondansetron Hcl 4 Mg/2 Ml Vial IVPUSH 4 mg Q8H PRN Administration Nausea and Vomiting Oxycodone HCl 5 mg 09/27/20 16:00 09/28/20 08:46 Oxycodone Hcl Immed Release 5 Mg Tablet PO 5 mg Q4H [facility] Administration Sodium Chloride 3 ml 09/27/20 16:00 09/28/20 08:53 0.9 % Sodium Chloride Flush 3 Ml Syringe IVFLUSH Not Given QSHIFT [facility] Vitamin D 25 mcg 09/28/20 09:00 09/28/20 08:46 Cholecalciferol (Vitamin D3) 25 Mcg Tablet PO 25 mcg DAILY [facility]ON[facility] Administration Labs CBC & Chem 7: 09/27/20 15:22 09/28/20 09:23 Labs: Laboratory Results - last 24 hr 09/27/20 09/27/20 09/28/20 15:22 15:22 06:22 WBC 17.4 H RBC 3.35 L Hgb 10.4 L Hct 31.9 L MCV 95.2 MCH 31.0 MCHC 32.6 RDW 13.7 Plt Count 273 MPV 9.1 L Absolute Nucleated RBC 0.000 Nucleated RBC % (auto) 0.0 Sodium 136 134 L Potassium 5.1 5.7 H Chloride 103 101 Carbon Dioxide 22 26 Anion Gap 16 13 BUN 36 H 25 H Creatinine 1.14 0.85 Estim Creat Clear Calc 40.5 54.2 Estimated GFR 46 > 60 Random Glucose 219 H Fasting Glucose 137 H Calcium 9.2 9.2 09/28/20 09:23 WBC RBC Hgb Hct MCV MCH MCHC RDW Plt Count MPV Absolute Nucleated RBC Nucleated RBC % (auto) Sodium Potassium 5.4 H Chloride Carbon Dioxide Anion Gap BUN Creatinine Estim Creat Clear Calc Estimated GFR Random Glucose Fasting Glucose Calcium Quality Stroke Does the patient have a stroke diagnosis?: No VTE Prior VTE?: No VTE Risk Level:: Medical - moderate - high VTE Device Contraindication: N/A - Device Ordered VTE Drug Contraindication: N/A - Med Ordered Assessment and Plan (1) Osteoarthritis of left knee: Status: Acute Assessment and Plan: This is a 80 yo F with a PMH of Violetta Fall on flec and eliquis who is admitted after L TKA. 1. Orthostatic hypotension still remains orthostatic check LR bolus over 4 hours and recheck orthostatics repeat cbc 2. PAF clinically appears to be in Sinus. Continue Bisoprolol continue Eliquis when okay from surgical perspective 3. HTN hold BP meds (minus BB for Violetta Fall) 4. HLD statin Will Follow
[2020-09-28] MEDS: Lactated Ringers 1,000 ML 250 ML IV (11:34)
[2020-09-28 11:36] LABS: Hematocrit 27.9 % (37-47); Hemoglobin 9.2 g/dl (12.0-16.0); Mean Corpuscular Hemoglobin 31.1 pg (27.0-33.0); Mean Corpuscular Volume 94.3 fL (80-98); Mean Platelet Volume 9.2 fL (9.4-12.3); Platelet Count 290 X10*3/uL (160-400); Red Blood Count 2.96 X10*6/uL (4.20-5.50); White Blood Count 14.7 X10*3/uL (4.8-10.8)
[2020-09-28] MEDS: Bisoprolol Fumarate 5 MG TABLET PO (12:32)
--- NOTE | 2020-09-28 14:25 | MHC.CM.PN ---
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
--- NOTE | 2020-09-28 16:04 | HO.POSTANES ---
Post Anesthesia Evaluation Post Anesthesia Evaluation Vital Signs: Vital Signs Temp Pulse Resp BP Pulse Ox 09/28/20 15:46 72 116/58 L 94 09/28/20 15:07 97.4 F 72 17 116/58 L 94 09/28/20 12:00 97.7 F 81 18 129/62 95 09/28/20 10:49 73 127/56 L 09/28/20 10:27 71 127/60 09/28/20 10:00 106/46 L 09/28/20 08:45 71 127/60 09/28/20 07:33 97.2 F 71 17 127/60 95 Anesthesia: Spinal and Nerve Block Mental Status: Awake Pain Control: Satisfactory Nausea/Vomiting: None Hydration: Adequate Anesthesia-Related Issues: No Anes. Related Issues
[2020-09-28] MEDS: Atorvastatin Calcium 20 MG TABLET PO (19:43)
[2020-09-29] VITALS (7 sets, daily range): BP systolic 122–152; BP diastolic 54–66; PULSE 61–80; RESP 16–18; TEMP 36–36.3; O2SAT 93–95
[2020-09-29 07:15] LABS: MANUAL DIFF FLAG NO
[2020-09-29 07:19] LABS: Basophils Percent Auto 0.2 % (0-2); Eosinophils Percent Auto 0.3 % (0-4); Hematocrit 26.2 % (37-47); Hemoglobin 8.4 g/dl (12.0-16.0); Imm Gran Abs Auto 0.09 X10*3/uL (0.00-0.03); Imm Gran Pct Auto 0.7 % (0.0-0.4); Lymphocytes Absolute Auto 2.2 X10*3/uL (1.2-4.9); Lymphocytes Percent Auto 17.6 % (20-40); Mean Corpuscular HGB Conc 32.1 g/dl (31.0-35.0); Mean Corpuscular Hemoglobin 30.3 pg (27.0-33.0); Mean Corpuscular Volume 94.6 fL (80-98); Mean Platelet Volume 9.7 fL (9.4-12.3); Monocytes Absolute Auto 1.4 X10*3/uL (0.1-1.2); Monocytes Percent Auto 11.3 % (2-11); Neutrophils Absolute Auto 8.6 X10*3/uL (2.0-8.3); Neutrophils Percent Auto 69.9 % (45-73); Platelet Count 257 X10*3/uL (160-400); Red Blood Count 2.77 X10*6/uL (4.20-5.50); Red Cell Distribution Width 13.9 % (11.0-16.0); White Blood Count 12.4 X10*3/uL (4.8-10.8)
[2020-09-29] MEDS: Famotidine 20 MG TABLET 10 MG PO (07:57)
[2020-09-29] MEDS: Bisoprolol Fumarate 5 MG TABLET PO (07:58)
[2020-09-29] MEDS: Celecoxib 200 MG CAPSULE PO (07:58)
[2020-09-29] MEDS: Flecainide Acetate 50 MG TABLET PO (07:59)
[2020-09-29] MEDS: Docusate Sodium 100 MG CAPSULE PO (07:59)
[2020-09-29] MEDS: oxyCODONE HCl Immed Release 5 MG TABLET PO ×2 (07:59→11:56)
[2020-09-29] MEDS: Cholecalciferol (Vitamin D3) 25 MCG TABLET PO (07:59)
[2020-09-29] MEDS: Enoxaparin Sodium 40 MG/0.4 ML SYRINGE SUBCUT (08:00)
--- NOTE | 2020-09-29 08:58 | PM.DS ---
DS: Providers Provider Date of Service: 09/29/20 Primary care physician: Amairani Jansen MD Consults: 09/27/20 13:11 Consult to Medicine Routine Consulting Provider: Hospitalist Reason for consultation: medical management DS: Diagnosis Discharge Diagnosis (1) Status post total knee replacement, left: Status: Acute DS: Medications Discharge Medications Home Medications: Home Medications Medication Instructions Recorded Confirmed aspirin 81 mg chewable tablet 81 mg PO BEDTIME 07/14/20 09/19/20 montelukast 10 mg tablet 10 mg PO BEDTIME 07/14/20 09/19/20 Eliquis 1 tab PO BID 09/19/20 09/19/20 albuterol sulfate [ProAir HFA] 1 inh INHALATION QID PRN 09/19/20 09/19/20 amlodipine 1 tab PO DAILY 09/19/20 09/19/20 atorvastatin 1 tab PO BEDTIME 09/19/20 09/19/20 betamethasone dipropionate 1 applic TOPICAL BID 09/19/20 09/19/20 bisoprolol fumarate 5 mg PO DAILY 09/19/20 09/19/20 calcium carbonate [Calcium 500] 1,000 mg PO BEDTIME 09/19/20 09/19/20 cholecalciferol (vitamin D3) 25 mcg PO DAILY 09/19/20 09/19/20 [Vitamin D3] famotidine [Pepcid AC] 10 mg PO DAILY 09/19/20 09/19/20 fluticasone propionate 1 spray INTRANASAL DAILY 09/19/20 09/19/20 irbesartan 1 tab PO DAILY 09/19/20 09/19/20 latanoprost 1 drp OPHTHALMIC (EYE) BEDTIME 09/19/20 09/19/20 lorazepam 1 tab PO DAILY PRN 09/19/20 09/19/20 flecainide 1 tab PO Q12H 09/27/20 09/27/20 Previous Rx's Medication Instructions Recorded acetaminophen 650 mg PO Q6H PRN 30 Days #240 tab 09/29/20 apixaban [Eliquis] 5 mg PO BID 30 Days #60 tab 09/29/20 celecoxib 200 mg PO BID 30 Days #60 cap 09/29/20 docusate sodium 100 mg PO BID 30 Days #60 cap 09/29/20 oxycodone 5 mg PO Q4H 7 Days #42 tab 09/29/20 DS: Summary Hospital Course Hospital Course: Ms Dudley is a 80 yo female who presented to the office with ongoing left knee pain. She was found to have OA of the left knee and had failed all conservative treatment. She continued to have difficulty with ambulation and daily activities; therefore she consented to move forward with left total knee arthroplasty. The patient underwent a successful left total knee arthroplasty, she was transferred to PACU and then to the floor to recover. During their stay, their vitals were stable, afebrile at 97.0. Labs were unremarkable, H/H 8/4/26.2. She was started on Lovenox 40mg subq for 48 hours post surgery and then resumed her Eliquis regular dose for DVT ppx. She also received Physical Therapy services twice a day. Prior to discharge, her dressing was changed, incision clean dry and intact, new Aquacel dressing applied and the plan was to be discharged to rehab. Time Spent with Patient Time attestation: Total time spent providing and/or coordinating discharge services: Discharge coordination time: Less than 30 minutes Quality: Stroke Does the patient have a stroke diagnosis?: No Physical Exam Vital Signs: Vital Signs: Last Vital Signs Temp 97.3 F 09/29/20 08:00 Pulse 73 09/29/20 08:28 Resp 18 09/29/20 08:00 BP 152/66 H 09/29/20 08:28 Pulse Ox 93 09/29/20 08:00 Body Mass Index 31.8 Const: General: cooperative, healthy appearing and no acute distress Resp: Effort & Inspection: normal respiratory effort and able to speak in complete sentences Cardio: Rate: regular rate Peripheral pulses: Peripheral pulses 2+ throughout GI: Palpation (GI): Soft to palpation Skin: Lesions: no lesions Rashes: no rashes Extrem: Other: left knee incision is well approximated. Lyle intact. No ecchymosis, redness, or drainage. New Aquacel dressing is intact. NVI DS: Data Data Completed and Pending Pending studies at discharge: Pending at discharge 09/27/20 08:59 Surgical [PTH] Routine Labs on day of discharge: Laboratory Results - last 24 hr 09/28/20 09/28/20 09/29/20 09:23 11:19 06:31 WBC 14.7 H 12.4 H RBC 2.96 L 2.77 L Hgb 9.2 L 8.4 L Hct 27.9 L 26.2 L MCV 94.3 94.6 MCH 31.1 30.3 MCHC 33.0 32.1 RDW 14.0 13.9 Plt Count 290 257 MPV 9.2 L 9.7 Immature Gran % (Auto) 0.7 H Neut % (Auto) 69.9 Lymph % (Auto) 17.6 L [place] % (Auto) 11.3 H Eos % (Auto) 0.3 Baso % (Auto) 0.2 Lymph # (Auto) 2.2 [place] # (Auto) 1.4 H Eos # (Auto) 0.0 Baso # (Auto) 0.0 Abs Immat Gran (auto) 0.09 H Absolute Neuts (auto) 8.6 H Absolute Nucleated RBC 0.000 0.000 Nucleated RBC % (auto) 0.0 0.0 Potassium 5.4 H Discharge Plan Discharge Patient Disposition: Home, Self-Care Referrals: [facility] [Other] - 1 Week (patient will nbe discharged today to short term rehab to the [facility] she will be transported via [facility]) Amairani Jansen MD [Primary Care Provider] - 1 Week Billy Fajardo PA-C [Physician Palliative Care Specialist] - 1 Week (10/13/20 at 1:15) Discharge Medications: New acetaminophen 325 mg Tablet 650 mg PO Q6H PRN (Reason: Pain, Mild (Pain Scale 1-3)) 30 Days Qty: 240 RF: 0 Eliquis 5 mg Tablet 5 mg PO BID 30 Days Qty: 60 RF: 0 celecoxib 200 mg Capsule 200 mg PO BID 30 Days Qty: 60 RF: 0 docusate sodium 100 mg Capsule 100 mg PO BID 30 Days Qty: 60 RF: 0 oxycodone 5 mg Tablet 5 mg PO Q4H 7 Days Qty: 42 RF: 0 Continued latanoprost 0.005 % drops 1 drp ophthalmic (eye) BEDTIME RF: 0 amlodipine 5 mg tablet 1 tab PO DAILY RF: 0 lorazepam 0.5 mg tablet 1 tab PO DAILY PRN (Reason: Anxiety) RF: 0 fluticasone propionate 50 mcg/actuation spray,suspension 1 spray intranasal DAILY RF: 0 atorvastatin 20 mg tablet 1 tab PO BEDTIME RF: 0 bisoprolol fumarate 5 mg Tablet 5 mg PO DAILY RF: 0 betamethasone dipropionate 0.05 % cream 1 applic topical BID RF: 0 Eliquis 5 mg tablet 1 tab PO BID RF: 0 irbesartan 300 mg tablet 1 tab PO DAILY RF: 0 famotidine [Pepcid AC] 10 mg Tablet 10 mg PO DAILY RF: 0 cholecalciferol (vitamin D3) [Vitamin D3] 25 mcg (1,000 unit) Tablet 25 mcg PO DAILY RF: 0 calcium carbonate [Calcium 500] 500 mg calcium (1,250 mg) Tablet 1,000 mg PO BEDTIME RF: 0 albuterol sulfate [ProAir HFA] 90 mcg/actuation Hfa Aerosol Inhaler 1 inh INHALATION QID PRN (Reason: Wheezing) RF: 0 flecainide 50 mg tablet 1 tab PO Q12H RF: 0 Discharge Orders: Discharge Order (Routine); Ordered 09/29/20 Ordered By: Paula Rogers Activity Restrictions/Additional Instructions: Physical Therapy for total hip arthroplasty: posterior precautions, gait training, ROM, strength Limit stair climbing No showering, no tub bath-keep dressing clean, dry and intact No driving x6 weeks Resume Elilissetis Follow up with [facility] in 2 weeks
--- NOTE | 2020-09-29 09:03 | MHC.CM.PN ---
nurse insurance healthcare consultant note patient will be transferred to [facility] for short term rehab case discussed with staff nurse and orthopedic surgeon she will be transported via [facility] confirmed clinical acceptance and transport time with patient and [facility]
--- NOTE | 2020-09-29 09:52 | HO.PM.IMPN ---
Subjective Subjective Date of Service: 09/29/20 Interval History: seen and examined this AM feeling better no further orthostatic symptoms ROS General - no fevers or chills Cardiovascular - no chest pain Respiratory - no shortness of breath or cough Abdominal- no abdominal pain, nausea, vomiting, diarrhea Physical Exam Vital Signs: Vital Signs: Last Vital Signs Temp 97.3 F 09/29/20 08:00 Pulse 73 09/29/20 08:28 Resp 18 09/29/20 08:00 BP 152/66 H 09/29/20 08:28 Pulse Ox 93 09/29/20 08:00 Body Mass Index 31.8 Const: Other: General - no acute distress, appears comfortable Cardiovascular - RRR on exam Lungs - normal respiratory effort, clear to auscultation bilaterally, no wheezing Abdomen - soft, nontender, no rebound or guarding Extremities - no edema Neuro - awake and alert, no focal deficits Objective Data Current Medications Generic Name Dose Route Start Last Admin Trade Name Freq PRN Reason Stop Dose Admin Acetaminophen 650 mg 09/27/20 13:11 09/28/20 08:46 Acetaminophen 325 Mg Tablet PO 650 mg Q6H PRN Administration Pain, Mild (Pain Scale 1-3) Apixaban 5 mg 09/29/20 20:00 Apixaban 5 Mg Tablet PO 09/29/20 20:01 ONCE ONE Apixaban 5 mg 09/30/20 09:00 Apixaban 5 Mg Tablet PO BID TONY Atorvastatin Calcium 20 mg 09/27/20 21:00 09/28/20 19:43 Atorvastatin Calcium 20 Mg Tablet PO 20 mg BEDTIME TONY Administration Bisoprolol Fumarate 5 mg 09/28/20 11:20 09/29/20 07:58 Bisoprolol Fumarate 5 Mg Tablet PO 5 mg DAILY TONY Administration Calcium Carbonate 1,000 mg 09/27/20 21:00 09/28/20 19:44 Calcium Carbonate 500 Mg Tablet PO 1,000 mg BEDTIME TONY Administration Celecoxib 200 mg 09/27/20 21:00 09/29/20 07:58 Celecoxib 200 Mg Capsule PO 200 mg BID TONY Administration Docusate Sodium 100 mg 09/27/20 21:00 09/29/20 07:59 Docusate Sodium 100 Mg Capsule PO 100 mg BID TONY Administration Famotidine 10 mg 09/28/20 09:00 09/29/20 07:57 Famotidine 20 Mg Tablet PO 10 mg DAILY TONY Administration Flecainide Acetate 50 mg 09/27/20 20:00 09/29/20 07:59 Flecainide Acetate 50 Mg Tablet PO 50 mg Q12H TONY Administration Hydromorphone HCl 0.25 mg 09/27/20 13:11 09/28/20 21:23 Hydromorphone Hcl 0.5 Mg/0.5 Ml Syringe IVPUSH 0.25 mg Q4H PRN Administration Pain, Severe (Pain Scale 7-10) Latanoprost 1 drop 09/27/20 21:00 09/28/20 19:50 Latanoprost 0.005 % Ophth Armida 2.5 Ml Drops EYE-BOTH Not Given BEDTIME [facility] Naloxone HCl 0.2 mg 09/27/20 13:11 Naloxone Hcl 0.4 Mg/Ml Vial IVPUSH Q2M PRN Excessive sedation or RR < 8 Ondansetron HCl 4 mg 09/27/20 13:11 09/28/20 10:40 Ondansetron Hcl 4 Mg/2 Ml Vial IVPUSH 4 mg Q8H PRN Administration Nausea and Vomiting Oxycodone HCl 5 mg 09/27/20 16:00 09/29/20 07:59 Oxycodone Hcl Immed Release 5 Mg Tablet PO 5 mg Q4H [facility] Administration Sodium Chloride 3 ml 09/27/20 16:00 09/29/20 09:08 0.9 % Sodium Chloride Flush 3 Ml Syringe IVFLUSH Not Given QSHIFT [facility] Vitamin D 25 mcg 09/28/20 09:00 09/29/20 07:59 Cholecalciferol (Vitamin D3) 25 Mcg Tablet PO 25 mcg DAILY TONY Administration Labs CBC & Chem 7: 09/29/20 06:31 09/28/20 09:23 Labs: Laboratory Results - last 24 hr 09/28/20 09/28/20 09/29/20 09:23 11:19 06:31 WBC 14.7 H 12.4 H RBC 2.96 L 2.77 L Hgb 9.2 L 8.4 L Hct 27.9 L 26.2 L MCV 94.3 94.6 MCH 31.1 30.3 MCHC 33.0 32.1 RDW 14.0 13.9 Plt Count 290 257 MPV 9.2 L 9.7 Immature Gran % (Auto) 0.7 H Neut % (Auto) 69.9 Lymph % (Auto) 17.6 L [place] % (Auto) 11.3 H Eos % (Auto) 0.3 Baso % (Auto) 0.2 Lymph # (Auto) 2.2 [place] # (Auto) 1.4 H Eos # (Auto) 0.0 Baso # (Auto) 0.0 Abs Immat Gran (auto) 0.09 H Absolute Neuts (auto) 8.6 H Absolute Nucleated RBC 0.000 0.000 Nucleated RBC % (auto) 0.0 0.0 Potassium 5.4 H Quality Stroke Does the patient have a stroke diagnosis?: No VTE Prior VTE?: No VTE Risk Level:: Surgical - high VTE Device Contraindication: N/A - Device Ordered VTE Drug Contraindication: N/A - Med Ordered Assessment and Plan (1) Osteoarthritis of left knee: Status: Acute Assessment and Plan: This is a 80 yo F with a PMH of Violetta Fall on flec and eliquis who is admitted after L TKA. 1. Orthostatic hypotension resolved due to hypovoluemia no further symptoms 2. PAF continue betablocker and eliquis 3. HTN rebounding, resume meds 4. HLD statin will follow if remains in the hospital
[2020-09-29 09:56] LABS: COVID-19 Test Negative (Negative)
[2020-09-29 10:08] LABS: Anion Gap 12 (12-20); Blood Urea Nitrogen 21 mg/dL (9-16); Calcium 9.9 mg/dL (8.4-10.2); Carbon Dioxide 28 mmol/L (22-29); Chloride 99 mmol/L (96-108); Creatinine Clr Calc Pharmacy 55.6; Estimated Glomerular Filt Rate > 60; Glucose Fasting 84 mg/dL (60-99); Potassium 5.5 mmol/L (3.3-5.1); Sodium 133 mmol/L (135-145)
[2020-09-29] MEDS: Sodium Polystyrene Sulfon/Sorb 15 GM/60 ML ORAL.SUSP PO (11:56)
== END 2020-09-29 13:15 | disposition skilled nursing facility (03) ==
LOC: HO.SSS 06:17 → HO.S3 12:04
PROVIDERS: Family Medicine; Physician Assistant; PCP Internal Medicine; Visit Provider Orthopaedic Surgery
PROC: (CPT 27447; principal; 2020-09-27 07:30)
DX: M17.12 Unilateral primary osteoarthritis, left knee (principal); R55 Syncope and collapse; I48.91 Unspecified atrial fibrillation; I10 Essential (primary) hypertension; E78.5 Hyperlipidemia, unspecified; J45.909 Unspecified asthma, uncomplicated; Z79.01 Long term (current) use of anticoagulants; Z79.82 Long term (current) use of aspirin; Z79.899 Other long term (current) drug therapy; Z20.822 Contact with and (suspected) exposure to COVID-19; Z96.651 Presence of right artificial knee joint
CPT/HCPCS: 27447; 36415; 73560; 80048; 84132; 85025; 85027; 86850; 86900; 86901; 87635; 87640; 87641; 88305; 88311; 93005; 97110; 97116; 97162; C1776; J0131; J0690; J1100; J1170; J1650; J2370; J2405; J3010

== ENCOUNTER → 2020-10-13 13:03 | Outpatient (BNVA) | payer MEDICARE, MEDICAID, SELFPAY | PROVIDERS: PCP Internal Medicine; Visit Provider Physician Assistant | DX: Z79.4 Long term (current) use of insulin (principal); Z96.652 Presence of left artificial knee joint | CPT/HCPCS: 99212 ==

== ENCOUNTER 2020-11-10 08:57 | Outpatient (REF) | payer MEDICARE, MEDICAID, SELFPAY ==
--- NOTE | ~2020-11-10 | XR_ITS ---
EXAMINATION: AP STANDING VIEWS OF BOTH KNEES. LATERAL AND SUNRISE VIEWS OF THE LEFT KNEE. CLINICAL INFORMATION: Pain COMPARISON: September 27, 2020 and July 14, 2020 TECHNIQUE: AP standing views of both knees as well as lateral and sunrise views of the left knee. FINDINGS: Patient status post bilateral total knee arthroplasty. Prosthetic components appear in normal position without evidence of acute fracture or dislocation. No findings to suggest loosening of prosthetic components. Lateral and sunrise views of the left knee demonstrate a small left knee effusion. XR/XR knee standing BI IMPRESSION: Status post bilateral knee arthroplasty without significant abnormality appreciated.
--- NOTE | ~2020-11-10 | XR_ITS ---
EXAMINATION: AP STANDING VIEWS OF BOTH KNEES. LATERAL AND SUNRISE VIEWS OF THE LEFT KNEE. CLINICAL INFORMATION: Pain COMPARISON: September 27, 2020 and July 14, 2020 TECHNIQUE: AP standing views of both knees as well as lateral and sunrise views of the left knee. FINDINGS: Patient status post bilateral total knee arthroplasty. Prosthetic components appear in normal position without evidence of acute fracture or dislocation. No findings to suggest loosening of prosthetic components. Lateral and sunrise views of the left knee demonstrate a small left knee effusion. XR/XR knee LT 2V IMPRESSION: Status post bilateral knee arthroplasty without significant abnormality appreciated.
== END 2020-11-10 08:58 | disposition home or self-care (01) ==
LOC: HO.HOSX 08:57
PROVIDERS: Visit Provider Orthopaedic Surgery
DX: Z47.1 Aftercare following joint replacement surgery (principal); Z96.652 Presence of left artificial knee joint
CPT/HCPCS: 73560; 73565; 99212

== ENCOUNTER 2020-12-26 10:00 | Outpatient (RCR) | payer MEDICARE, OTHER, MEDICAID, SELFPAY ==
--- NOTE | 2020-12-26 12:28 | MHC.PT.OD ---
[facility] Office [place] Office [place] Office [address] Mere Goodson 140 [facility] [phone] F: [phone] F: [phone] F: [phone] F: [phone] Physical Therapy Daily Note Diagnosis: PT eval and treat; Presence of left artificial knee joint s/p total knee replacement, left s/p L TKA 09/[address] Sal 10/13/20 Date of Surgery: 09/27/20 Date of Evaluation: 10/17/20 Date of Treatment: 12/26/20 Treatments to Date: Cancellations to Date: No Shows to Date: Authorized Visits: 1 Insurance End Date: Precautions/ Contraindications:History of syncopal episode early on post surgery (on anticoagulant- Eliquis), hx Afib, hx HTN, hx breast CA, hx CKDIII, history of asthma Subjective: Pt reports bout of asthma flare past few days (has a call into her MD). Report feeling comfortable with her HEP and is requesting to transition to I HEP today. I know Im not walking as much as I should be. Pain Score and Location: SORE IN MORNING L KNEE Objective Flowsheet: Tests & Measures Girth measurement: L knee supra 47 cm, R knee supra 43 cm L knee Jt line 41 cm, R knee Jt line 37 cm, L knee infra 39 cm, R knee 37 AROM 115 L knee flexion, AAROM flexion with strap 120 Good SLR strength Review of compehensive program with patient (she presents today without use of std cane). Encouraged walking program for home with patient. [facility] [address] [place] [address] Office Visit Report Signed Patient: Mari Dudley SRMR#: [id number] : [id number] Age/Sex: 80 / FADM Date: 11/10/20 Loc: HO.LETHADate of Service:11/10/20 Attending Provider: Hal Sal MD cc: Hal Sal MD; Physician,Unknown ~ Intake Vital Signs 11/10/20 10:19 Height 5 ft 3 in Weight 178 lb BMI 31.5 Temp 97.1 F Temp Source Temporal Artery Scan Intake Visit Reasons: P/O - L TKA 09/27/20 NE Intake Note: Mari presents here today for P/O L TKA 09/27/20 NE, She states she has soreness and pain at times. Allergies dorzolamide [DORZOLAMIDE] Allergy (Intermediate, Verified 10/13/20 13:25) ITCHING, SEVERE EYE REDNESS, redness, discharge from eyes certain eye drop (pt unsure) Allergy (Unknown, Uncoded 09/19/20 09:19) inflammation HPI P/O - L TKA 09/27/20 NE HPI Details 6 weeks post of left TKA doing well no fever chills using cane at home and walker out of house [facility] Medical History Afib Asthma Breast cancer Chronic cough CKD (chronic kidney disease), stage III COVID-19 vaccine series completed Deafness in right ear GERD (gastroesophageal reflux disease) High blood pressure High cholesterol History of syncope On anticoagulant therapy On beta sloan at home Osteoarthritis of left knee Post-nasal drip Surgical History H/O eye surgery H/O lumpectomy History of appendectomy Hx of cataract extraction Hx of colonoscopy Status post right knee replacement Social History Are you a primary wound care specialist to a significant other at home: No Do you presently have visiting nurse or other home services: No Patient Tobacco Use Status: Never used Tobacco service: No Current occupational status: retired Current occupation: rt handed Physical Exam Vital Signs: Last Vital Signs Temp 97.1 F 11/10/20 10:19 Body Mass Index 31.5 Extrem Other: inc c.d.i 0-120 antalgia with gait that is mild Results Reviewed Results Reviewed: I personally reviewed relevant radiographs. left total knee arthroplasty in expected post operative position with no hardware complications or evidence of loosening Assessment & Plan Assessment & Plan (1) Status post total knee replacement, left: Code(s): Z96.652 - Presence of left artificial knee joint Plan: Continue PT wean walker f/u 6 weeks Orders: Orders XR knee LT 2V Today M25.569 - Pain in unspecified knee XR knee standing BI Today M25.569 - Pain in unspecified knee Coding Level of Care Code Global (52415) Diagnoses Status post total knee replacement, left Z96.652 Documented By:Hal Sal MD11/10/20 1018 Signed By:<Electronically signed by Hal Sal MD>11/10/20 1031 11/28/20: BP assessment 110/64mmHg Exercises SCI FIT BIKE AT [place] SEAT 7 LEVEL 2 X 10 MIN WARM UP Reassessment with home program reviewed questions with patient, encouraged walking program as able. Continued AAROM program several times daily. Discussed concern for increasing edema in bilateral LE- pt reports at one time was on a diuretic... not wearing compression stockings- advised to speak with PCP about concerns and symptoms She states she has been having good output of urine, slightly more often than her norm. Edema noted bilateral LE (no pitting). Positioned in supine for flexbar to L>R proximal thigh and hip (reports DOMS ) following last session. Pt educated re: self care for home of stretching when DOMS is present. Educated re: self care for STM to L UT region for home. SMALL BRUISE L KNEE (REPORTS DOESNT REMEMBER HITTING IT ON ANYTHING) Modalities Assessment: Pt has attended 19 sessions of PT to date, demonstrating overall improvement in functional mobility since start of care. She presents to office independent of cane today. She continues to exhibit weakness of hip abductors contributing to (+) observable hip drop during ambulation. She has been issued a written HEP to address her recovery for L TKA and reports she is ready for transition to I HEP at this time. She has been encouraged to establish a regular walking program but states lately has been having difficulty consistently doing so due to other commitments. AROM 0 to 115, AAROM flexion to 120. She recently has had a change in medication onset of new diuretic due to bilateral LE edema. She also presented to the office today reporting flare of asthma (states will be making a phone call to MD who treats her for this). She does not have stairs in her home but states I dont have a problem when I need to do them. She has met goals with PT at this time. D/C pt to I HEP. R HIP ABDUCTION (OPPOSITE SIDE OF TKR) SIGNIFICANTLY WEAKER- issued SL hip abduction for home. PT Plan: D/C pt to I HEP per pt request. Short Term Goals: 1. Pt will demonstrate AAROM>AROM L knee flexion to 95 degrees. 2. Pt will demonstrate AAROM>AROM L knee ext -5 degrees. 3. Pt will demonstrate good strength during SLR. 4. Pt will negotiate 6 inch step with good dynamic balance. Long-Term Goals: 1. Pt will demonstrate AROM L knee flexion to 120. 2. Pt will demonstrate AROM L knee extension 0 degrees. 3. Pt will negotiate stairs reciprocally with good dynamic balance. 4. Pt will demonstrate I HEP. 5. Pt will complete community ambulation MOD I with least restrictive AD. Electronically signed by: Kate Khan, PT, DPT
== END 2021-01-20 14:42 | disposition home or self-care (01) ==
LOC: HO.PTWFD 10:00
PROVIDERS: Visit Provider Orthopaedic Surgery
DX: Z96.652 Presence of left artificial knee joint (principal)
CPT/HCPCS: 97110; 97140; 97162; 97530; 97535

== ENCOUNTER → 2021-01-05 11:26 | Outpatient (BNVA) | payer MEDICARE, MEDICAID, SELFPAY | PROVIDERS: Visit Provider Orthopaedic Surgery | DX: Z47.1 Aftercare following joint replacement surgery (principal); Z96.652 Presence of left artificial knee joint | CPT/HCPCS: 99212 ==

== ENCOUNTER 2021-03-08 12:24 | Outpatient (REF) | payer MEDICARE, MEDICAID, SELFPAY ==
--- NOTE | ~2021-03-08 | MM_ITS ---
EXAMINATION: MM SCREENING DIGITAL BREAST TOMOSYNTHESIS, BILATERAL CLINICAL INFORMATION: Right lumpectomy 04/03/2017 for invasive cancer. Due for yearly. COMPARISON: Mammography: 03/07/2020, 02/27/2019, 02/25/2018, 02/20/2017 TECHNIQUE: Digital breast tomosynthesis is performed in both the craniocaudal and mediolateral oblique views along with computer-aided detection (CAD). Synthesized 2D images are generated from the tomosynthesis. FINDINGS: There are scattered areas of fibroglandular density (ACR BI-RADS breast composition Category b). There are no significant masses, abnormal calcifications, or other abnormalities. There are minor post therapy changes on the right with stable scarring. Scattered benign round and ductal secretory and dystrophic calcifications are again seen. No developing density or architectural abnormality. No significant changes. MM/MM tomosynthesis screening BI IMPRESSION: No mammographic evidence of malignancy. ASSESSMENT: BI-RADS 2: Benign RECOMMENDATION: Routine annual mammography screening. This patient's information was entered into a reminder system with a target due date for their next mammogram.
== END 2021-03-08 12:25 | disposition home or self-care (01) ==
LOC: HO.MAMMO 12:24
PROVIDERS: Visit Provider Internal Medicine
DX: Z12.31 Encounter for screening mammogram for malignant neoplasm of breast (principal)
CPT/HCPCS: 77063; 77067

== ENCOUNTER → 2021-04-10 10:17 | Outpatient (BNVA) | payer MEDICARE, MEDICAID, SELFPAY | PROVIDERS: PCP Internal Medicine; Visit Provider Hospitalist | DX: R05.3 Chronic cough (principal); J45.20 Mild intermittent asthma, uncomplicated; J31.0 Chronic rhinitis; K21.00 Gastro-esophageal reflux disease with esophagitis, without bleeding | CPT/HCPCS: 99202 ==

== ENCOUNTER 2021-06-12 12:49 | Outpatient (REF) | payer MEDICARE, MEDICAID, SELFPAY ==
--- NOTE | 2021-06-12 14:12 | PFT_ITS ---
INDICATION: Dyspnea. SPIROMETRY: FEV1 to FVC of 72% with an FEV1 of 1.53 L, which is 82% predicted, and FVC of 2.11 L, which is 85% predicted. No significant response to bronchodilators noted. To note, the FEF 25/75 decreased to 76% predicted and it did improve to 92% after bronchodilators. LUNG VOLUMES: Total lung capacity 86% predicted with an expiratory reserve volume of 35% predicted. DIFFUSION CAPACITY: DLCO 72% predicted. COMPARISONS: None. INTERPRETATION: No obstructive nor restrictive ventilatory defects have been identified. No significant response to bronchodilators noted. There is a suspicion of small airways disease. Lung volumes are low normal and a decrease in the expiratory reserve volume secondary to an elevated BMI. The patient does have an isolated mild diffusion impairment. Need to correct for hemoglobin. Need to consider pulmonary vascular conditions. Clinical correlation warranted. Jeremy Fish MD MR/MODL / [id number]
== END 2021-06-12 12:50 | disposition home or self-care (01) ==
LOC: HO.RESP 12:49
PROVIDERS: PCP Internal Medicine; Visit Provider Hospitalist
DX: R05.3 Chronic cough (principal); J31.0 Chronic rhinitis; J45.20 Mild intermittent asthma, uncomplicated; K21.00 Gastro-esophageal reflux disease with esophagitis, without bleeding
CPT/HCPCS: 94060; 94727; 94729; 99212

== ENCOUNTER 2021-06-15 12:35 | Outpatient (REF) | payer MEDICARE, MEDICAID, SELFPAY ==
[2021-06-15 13:04] LABS: MANUAL DIFF FLAG NO
[2021-06-15 13:21] LABS: Basophils Absolute Auto 0.1 X10*3/uL (0.0-0.2); Basophils Percent Auto 0.6 % (0-2); Eosinophils Absolute Auto 0.2 X10*3/uL (0.0-0.4); Eosinophils Percent Auto 1.8 % (0-4); Hematocrit 38.2 % (37.0-47.0); Hemoglobin 12.2 g/dl (12.0-16.0); Imm Gran Abs Auto 0.04 X10*3/uL (0.00-0.03); Imm Gran Pct Auto 0.5 % (0.0-0.4); Lymphocytes Absolute Auto 2.2 X10*3/uL (1.2-4.9); Lymphocytes Percent Auto 25.2 % (20-40); Mean Corpuscular HGB Conc 31.9 g/dl (31.0-35.0); Mean Corpuscular Hemoglobin 30.3 pg (27.0-33.0); Mean Corpuscular Volume 94.8 fL (80.0-98.0); Mean Platelet Volume 9.4 fL (9.4-12.3); Monocytes Absolute Auto 0.8 X10*3/uL (0.1-1.2); Monocytes Percent Auto 8.7 % (2-11); Neutrophils Absolute Auto 5.5 x10*3/uL (2.0-8.3); Neutrophils Percent Auto 63.2 % (45-73); Platelet Count 287 X10*3/uL (160-400); Red Blood Count 4.03 X10*6/uL (4.20-5.50); Red Cell Distribution Width 14.1 % (11.0-16.0); White Blood Count 8.7 X10*3/uL (4.8-10.8)
[2021-06-15 13:52] LABS: Anion Gap 13 (12-20); Blood Urea Nitrogen 18 mg/dL (9-16); Calcium 9.9 mg/dL (8.4-10.2); Carbon Dioxide 26 mmol/L (22-29); Chloride 102 mmol/L (96-108); Estimated Glomerular Filt Rate > 60; Glucose Random 97 mg/dL (60-115); Potassium 5.2 mmol/L (3.3-5.1); Sodium 136 mmol/L (135-145)
[2021-06-15 14:10] LABS: Erythrocyte Sedimentation Rate 7 MM/HR (0-20)
== END 2021-06-15 12:36 | disposition home or self-care (01) ==
LOC: HO.LAB 12:35
PROVIDERS: PCP Internal Medicine; Visit Provider Hospitalist
DX: D64.9 Anemia, unspecified (principal)
CPT/HCPCS: 36415; 80048; 85025; 85652

== ENCOUNTER → 2021-08-15 14:11 | Outpatient (BNVA) | payer MEDICARE, MEDICAID, SELFPAY | PROVIDERS: PCP Internal Medicine; Visit Provider Hospitalist | DX: J45.20 Mild intermittent asthma, uncomplicated (principal); R05.3 Chronic cough; R06.00 Dyspnea, unspecified; J31.0 Chronic rhinitis; K21.00 Gastro-esophageal reflux disease with esophagitis, without bleeding | CPT/HCPCS: 99212 ==

== ENCOUNTER 2021-11-16 12:03 | Outpatient (REF) | payer MEDICARE, MEDICAID, SELFPAY ==
--- NOTE | ~2021-11-16 | XR_ITS ---
EXAMINATION: XR CHEST CLINICAL INFORMATION: R06.00 - Dyspnea, unspecified COMPARISON: Chest radiographs 12/04/2019, 12/30/2012 TECHNIQUE: 2 views of the chest were obtained. FINDINGS: The lungs are clear. The vascularity is normal. The costophrenic sulci are well-defined. No effusion. The cardiopericardial silhouette is within upper limits of normal similar to prior exam. The hilar and mediastinal contours are unremarkable. There are multilevel degenerative changes thoracic spine with dextrocurvature. XR/XR chest 2V IMPRESSION: Unremarkable examination.
[2021-11-16 14:18] LABS: MANUAL DIFF FLAG NO
[2021-11-16 14:56] LABS: Basophils Absolute Auto 0.1 X10*3/uL (0.0-0.2); Basophils Percent Auto 0.8 % (0-2); Eosinophils Absolute Auto 0.1 X10*3/uL (0.0-0.4); Eosinophils Percent Auto 1.8 % (0-4); Hematocrit 39.3 % (37.0-47.0); Hemoglobin 12.8 g/dl (12.0-16.0); Imm Gran Abs Auto 0.03 X10*3/uL (0.00-0.03); Imm Gran Pct Auto 0.4 % (0.0-0.4); Lymphocytes Absolute Auto 2.3 X10*3/uL (1.2-4.9); Mean Corpuscular HGB Conc 32.6 g/dl (31.0-35.0); Mean Corpuscular Hemoglobin 30.3 pg (27.0-33.0); Mean Corpuscular Volume 93.1 fL (80.0-98.0); Mean Platelet Volume 9.5 fL (9.4-12.3); Monocytes Absolute Auto 0.6 X10*3/uL (0.1-1.2); Monocytes Percent Auto 7.9 % (2-11); Neutrophils Absolute Auto 4.8 x10*3/uL (2.0-8.3); Neutrophils Percent Auto 60.1 % (45-73); Platelet Count 324 X10*3/uL (160-400); Red Blood Count 4.22 X10*6/uL (4.20-5.50); Red Cell Distribution Width 13.7 % (11.0-16.0)
[2021-11-16 16:02] LABS: Erythrocyte Sedimentation Rate 9 MM/HR (0-20)
[2021-11-20 14:47] LABS: IgA 241 mg/dL (70-320); IgG 1033 mg/dL (600-1540); IgM 70 mg/dL (50-300)
[2021-11-20 15:11] LABS: Anti Nuclear Antibody Screen NEGATIVE (NEGATIVE)
== END 2021-11-16 12:04 | disposition home or self-care (01) ==
LOC: HO.XRAY 12:03
PROVIDERS: PCP Internal Medicine; Visit Provider Hospitalist
DX: J45.20 Mild intermittent asthma, uncomplicated (principal); R05.3 Chronic cough; K21.00 Gastro-esophageal reflux disease with esophagitis, without bleeding; J31.0 Chronic rhinitis; R06.00 Dyspnea, unspecified
CPT/HCPCS: 36415; 71046; 82784; 82785; 85025; 85652; 86003; 86038; 86039; 99212

== ENCOUNTER 2022-03-13 12:28 | Outpatient (REF) | payer MEDICARE, MEDICAID, SELFPAY ==
--- NOTE | ~2022-03-13 | MM_ITS ---
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 Due for yearly. COMPARISON: Mammography: 03/08/2021, 03/07/2020, 02/27/2019 TECHNIQUE: Digital breast tomosynthesis is performed in both the craniocaudal and mediolateral oblique views along with computer-aided detection (CAD). Synthesized 2D images are generated from the tomosynthesis. FINDINGS: There are scattered areas of fibroglandular density (ACR BI-RADS breast composition Category b). Parenchymal pattern is similar to prior studies and there is no interval mass or architectural abnormality or abnormal calcifications. Mild post therapy changes are again noted on the right with stable minor scarring and borderline reduced breast size. There are bilateral scattered benign round coarse and some ductal secretory calcifications. The axilla are unremarkable. No significant changes. MM/MM tomosynthesis screening BI IMPRESSION: No mammographic evidence of malignancy. ASSESSMENT: BI-RADS 2: Benign RECOMMENDATION: Routine annual mammography screening. This patient's information was entered into a reminder system with a target due date for their next mammogram.
== END 2022-03-13 12:29 | disposition home or self-care (01) ==
LOC: HO.MAMMO 12:28
PROVIDERS: PCP Internal Medicine; Visit Provider Internal Medicine
DX: Z12.31 Encounter for screening mammogram for malignant neoplasm of breast (principal)
CPT/HCPCS: 77063; 77067

== ENCOUNTER 2022-03-15 12:49 | Observation (INO) | payer MEDICARE, MEDICAID, SELFPAY ==
[2022-03-15] VITALS (10 sets, daily range): BP systolic 120–177; BP diastolic 50–71; PULSE 50–69; RESP 14–18; TEMP 36.5–36.8; O2SAT 93–97; BMI 31.0
--- NOTE | 2022-03-15 | ECG_ITS ---
Test Reason : SYNCOPE Blood Pressure : / mmHG Vent. Rate : 054 BPM Atrial Rate : 054 BPM P-R Int : 238 ms QRS Dur : 106 ms QT Int : 442 ms P-R-T Axes : 045 -04 022 degrees QTc Int : 419 ms Sinus bradycardia with 1st degree A-V block Incomplete right bundle branch block Borderline ECG When compared with ECG of 28-SEP-2020 12:01, Vent. rate has decreased BY 27 BPM Referred By: Generic ED Physician Electronically Signed By:BRODIE BAJWA
--- NOTE | ~2022-03-15 | XR_ITS ---
EXAMINATION: XR CHEST CLINICAL INFORMATION: Syncope COMPARISON: 11/16/2021 TECHNIQUE: 2 views of the chest were obtained. FINDINGS: No significant abnormality is noted involving the heart, lungs, mediastinum, bony thorax or soft tissues. XR/XR chest 2V IMPRESSION: Unremarkable examination.
[2022-03-15 13:11] LABS: Glucose, Whole Blood 106 mg/dL (60-115)
--- NOTE | 2022-03-15 13:48 | ED.SYNCOPE ---
HPI - Syncope General Chief Complaint: Syncope Stated Complaint: SYNCOPE, DIZZINESS Time Seen by Provider: 03/15/22 13:11 Source: patient Mode of arrival: ambulatory Limitations: no limitations History of Present Illness HPI narrative: 82 year old female presents with her sister. They were at a when she admits to having a heavy coat and sweating and feeling faint before she passed out and slumped over in a chair. They were unable to find a pulse and per her sister was not breathing for 30 seconds. She does not recall the incident. She has passed out in the past but nothing recently. She has no chest pain shortness of breath or other concerns. MD complaint: loss of consciousness, felt faint and collapsed Related Data Home Medications Medication Instructions Recorded Confirmed aspirin 81 mg chewable tablet 81 mg PO BEDTIME 07/14/20 09/19/20 apixaban 5 mg tablet (Eliquis) 1 tab PO BID 09/19/20 09/19/20 atorvastatin 20 mg tablet 1 tab PO BEDTIME 09/19/20 09/19/20 bisoprolol fumarate 5 mg tablet 5 mg PO DAILY 09/19/20 09/19/20 calcium carbonate 500 mg calcium 1,000 mg PO BEDTIME 09/19/20 09/19/20 (1,250 mg) tablet (Calcium 500) cholecalciferol (vitamin D3) 25 25 mcg PO DAILY 09/19/20 09/19/20 mcg (1,000 unit) tablet (Vitamin D3) famotidine 10 mg tablet (Pepcid AC) 10 mg PO DAILY 09/19/20 09/19/20 fluticasone propionate 50 1 spray intranasal DAILY 09/19/20 09/19/20 mcg/actuation nasal spray,suspension flecainide 50 mg tablet 1 tab PO Q12H 09/27/20 09/27/20 losartan 25 mg tablet 75 mg PO DAILY 04/10/21 bimatoprost 0.01 % eye drops 1 drp ophthalmic (eye) DAILY 08/15/21 (Lesley) cetirizine 10 mg tablet (Zyrtec) 10 mg PO DAILY PRN 11/16/21 Previous Rx's Medication Instructions Recorded acetaminophen 325 mg tablet 650 mg PO Q6H PRN Pain, Mild (Pain 09/29/20 Scale 1-3) 30 days #240 tabs fluticasone propionate 110 2 puff inhalation DAILY 30 days 06/20/21 mcg/actuation HFA aerosol inhaler #12 grams (Flovent HFA) inhalational spacing device #1 ea 08/15/21 (Aerochamber Plus Z Stat spacer) benzonatate 200 mg capsule 200 mg PO BID PRN cough 30 days 11/16/21 #30 caps amoxicillin 500 mg tablet 2,000 mg PO ONCE 1 day #4 tabs 12/29/21 montelukast 10 mg tablet 10 mg PO BEDTIME #90 tabs 03/07/22 Allergies Allergy/AdvReac Type Severity Reaction Status Date / Time dorzolamide [DORZOLAMIDE] Allergy Intermediate ITCHING, Verified 11/16/21 13:07 SEVERE EYE REDNESS, redness, discharge from eyes certain eye drop (pt unsure) Allergy Unknown inflammatio Uncoded 11/16/21 13:07 n Review of Systems Review of Systems: Review of systems: General: Patient denies any fever chills recent illness or falls Musculoskeletal: Denies back pain or body aches or other injuries HEENT: denies headache, runny nose, ear pain Respiratory: denies shortness of breath, cough Cardiovascular: no chest pain or palpitations : denies dysuria, frequency Abdomen: no nausea vomiting denies abdominal pain Extremities: no swelling, no pain Skin: no diaphoresis Yes all other systems are reviewed and are negative [facility] Past Medical History Medical History (Updated 03/15/22 @ 16:16 by Song Novak DO) Afib Asthma Chronic cough Chronic rhinitis CKD (chronic kidney disease), stage III COVID-19 vaccine series completed Deafness in right ear Dyspnea GERD (gastroesophageal reflux disease) History of breast cancer (~2017) History of syncope HLD (hyperlipidemia) HTN (hypertension) On anticoagulant therapy On beta sloan at home Osteopenia (~2008) Post-nasal drip Surgical History (Updated 06/12/21 @ 11:42 by Kourtney Garay PA-C) H/O eye surgery History of appendectomy History of colonoscopy History of lumpectomy of right breast (~2017) History of total left knee replacement (TKR) (~2020) History of total right knee replacement (TKR) (~2010) Hx of cataract extraction Social History Social History Are you a primary customer care professional to a significant other at home: No Do you presently have visiting nurse or other home services: No Alcohol intake: unknown Patient Tobacco Use Status: Never used Tobacco Smoked in Last 30 Days: No Advance Directives: Yes Advance Directives Information Provided: Yes Advance Directives on File: No service: No Current occupational status: retired Current occupation: rt handed Physical Exam Vital Signs: Vital Signs: Last Vital Signs Temp 97.7 F 03/15/22 13:03 Pulse 56 03/15/22 16:10 Resp 14 03/15/22 16:10 BP 153/52 H 03/15/22 16:10 Pulse Ox 96 03/15/22 16:10 O2 Del Method 03/15/22 16:10 BMI result Body Mass Index 31.0 Neurological exam: CN II- XII tested. Patient is alert and oriented to person place and time. Patient has no dysphagia or dysarthia, denies good vision in all four vision gudino no nystagmus on exam, good strength to upper and lower extremities with normal reflexes to brachioradialis, wrist, patella and achilles. Negative romberg, good finger to nose and heel to francis. General: Well-appearing well-nourished in no signs of distress HEENT: Normocephalic atraumatic Neck: No signs of JVD, no masses no tenderness or lymphadenopathy Cardiovascular: Regular rate and rhythm Respiratory: Clear to auscultation bilaterally Abdomen: Soft nontender no masses Extremities: Normal pedal pulses no signs of edema Skin: Dry warm no rashes Back: No tenderness full ROM Medical Decision Making Medical Decision Making MDM Narrative: Patient looks well EKG is unremarkable patient has had episodes similar to this but she was having surgery or to painful episode when she passed out previously. This time she also lost pulses which sister states never happened in the past. Patient recently had a cold for the past 2 weeks has been tested for COVID and flu both been negative. She is vaccinated for COVID and flu concerning that she did lose consciousness such a problem. Time I will check labs patient had no trauma she did hit her head nothing shins CT scan but I will monitor her closely. Labs and XR are all okay. I will admit for syncope workup. I did discuss the case with Dr. Prado who accepted the admission Differential Diagnosis Differential Diagnoses: The differential diagnosis associated with the presentation includes syncope, arrthymia cardiac event, stroke. Admission/Observation Consideration of admission/observation: Escalation of care including admission/observation considered Consult Healthcare Provider Management of the patient was discussed with: Hospitalist Lab Data MDM Lab Attestation statement: I reviewed the patient's lab results. Result Diagrams: 03/15/22 13:23 03/15/22 13:23 Labs: Lab Results 03/15/22 03/15/22 03/15/22 Range/Units 13:06 13:23 13:23 WBC 15.8 H (4.8-10.8) X10*3/uL RBC 4.02 L (4.20-5.50) X10*6/uL Hgb 12.2 (12.0-16.0) g/dl Hct 37.1 (37.0-47.0) % MCV 92.3 (80.0-98.0) fL MCH 30.3 (27.0-33.0) pg MCHC 32.9 (31.0-35.0) g/dl RDW 13.9 (11.0-16.0) % Plt Count 440 H D (160-400) X10*3/uL MPV 9.1 L (9.4-12.3) fL Immature Gran % (Auto) 0.8 H (0.0-0.4) % Neut % (Auto) 63.6 (45-73) % Lymph % (Auto) 28.3 (20-40) % [place] % (Auto) 5.9 (2-11) % Eos % (Auto) 0.9 (0-4) % Baso % (Auto) 0.5 (0-2) % Lymph # (Auto) 4.5 (1.2-4.9) X10*3/uL [place] # (Auto) 0.9 (0.1-1.2) X10*3/uL Eos # (Auto) 0.1 (0.0-0.4) X10*3/uL Baso # (Auto) 0.1 (0.0-0.2) X10*3/uL Abs Immat Gran (auto) 0.13 H (0.00-0.03) X10*3/uL Absolute Neuts (auto) 10.1 H (2.0-8.3) x10*3/uL Absolute Nucleated RBC 0.000 (0.0-0.012) X10*3/uL Nucleated RBC % (auto) 0.0 (0.0-0.2) /100WBC Sodium 134 L (135-145) mmol/L Potassium 4.6 (3.3-5.1) mmol/L Chloride 101 (96-108) mmol/L Carbon Dioxide 22 (22-29) mmol/L Anion Gap 16 (12-20) BUN 32 H D (9-16) mg/dL Creatinine 1.15 (0.5-1.4) mg/dL Estim Creat Clear Calc 39.7 Estimated GFR 45 POC Glucose 106 (60-115) mg/dL Random Glucose 115 (60-115) mg/dL Calcium 8.9 D (8.4-10.2) mg/dL Independent Interpretation I performed an independent interpretation of an: EKG Interpretation: RAte 54 sinus bradycardia normal intervals no signs of ischemia Discharge Plan Discharge Clinical Impression: Dehydration, Syncope Patient Disposition: Admitted As Inpatient Prescriptions: No Action Flovent HFA 110 mcg/actuation HFA aerosol inhaler 2 puff inhalation DAILY 30 Days Qty: 12 11RF amoxicillin 500 mg tablet 2,000 mg PO ONCE 1 Days Qty: 4 3RF Rx Instructions: take 4 capsules 1 hr prior to dental procedure montelukast 10 mg tablet 10 mg PO BEDTIME Qty: 90 3RF fluticasone propionate 50 mcg/actuation spray,suspension 1 spray intranasal DAILY atorvastatin 20 mg tablet 1 tab PO BEDTIME bisoprolol fumarate 5 mg Tablet 5 mg PO DAILY Eliquis 5 mg tablet 1 tab PO BID famotidine [Pepcid AC] 10 mg Tablet 10 mg PO DAILY cholecalciferol (vitamin D3) [Vitamin D3] 25 mcg (1,000 unit) Tablet 25 mcg PO DAILY calcium carbonate [Calcium 500] 500 mg calcium (1,250 mg) Tablet 1,000 mg PO BEDTIME flecainide 50 mg tablet 1 tab PO Q12H acetaminophen 325 mg Tablet 650 mg PO Q6H PRN (Reason: Pain, Mild (Pain Scale 1-3)) 30 Days Qty: 240 0RF aspirin 81 mg tablet,chewable 81 mg PO BEDTIME losartan 25 mg tablet 75 mg PO DAILY Lumigan 0.01 % drops 1 drp ophthalmic (eye) DAILY (DME) Aerochamber Plus Z Stat Spacer See Rx Instructions .Route Qty: 1 0RF Rx Instructions: As directed cetirizine [Zyrtec] 10 mg tablet 10 mg PO DAILY PRN benzonatate 200 mg capsule 200 mg PO BID PRN (Reason: cough) 30 Days Qty: 30 3RF
[2022-03-15 13:52] LABS: MANUAL DIFF FLAG NO
[2022-03-15 14:07] LABS: Basophils Absolute Auto 0.1 X10*3/uL (0.0-0.2); Basophils Percent Auto 0.5 % (0-2); Eosinophils Absolute Auto 0.1 X10*3/uL (0.0-0.4); Eosinophils Percent Auto 0.9 % (0-4); Hematocrit 37.1 % (37.0-47.0); Hemoglobin 12.2 g/dl (12.0-16.0); Imm Gran Abs Auto 0.13 X10*3/uL (0.00-0.03); Imm Gran Pct Auto 0.8 % (0.0-0.4); Lymphocytes Absolute Auto 4.5 X10*3/uL (1.2-4.9); Lymphocytes Percent Auto 28.3 % (20-40); Mean Corpuscular HGB Conc 32.9 g/dl (31.0-35.0); Mean Corpuscular Hemoglobin 30.3 pg (27.0-33.0); Mean Corpuscular Volume 92.3 fL (80.0-98.0); Mean Platelet Volume 9.1 fL (9.4-12.3); Monocytes Absolute Auto 0.9 X10*3/uL (0.1-1.2); Monocytes Percent Auto 5.9 % (2-11); Neutrophils Absolute Auto 10.1 x10*3/uL (2.0-8.3); Neutrophils Percent Auto 63.6 % (45-73); Platelet Count 440 X10*3/uL (160-400); Red Blood Count 4.02 X10*6/uL (4.20-5.50); Red Cell Distribution Width 13.9 % (11.0-16.0); White Blood Count 15.8 X10*3/uL (4.8-10.8)
--- NOTE | 2022-03-15 14:11 | PC.NURSE ---
Patient up ambulatory to the bathroom with stand by assist will CTM
[2022-03-15 14:16] LABS: Anion Gap 16 (12-20); Blood Urea Nitrogen 32 mg/dL (9-16); Calcium 8.9 mg/dL (8.4-10.2); Carbon Dioxide 22 mmol/L (22-29); Chloride 101 mmol/L (96-108); Creatinine Clr Calc Pharmacy 39.7; Estimated Glomerular Filt Rate 45; Glucose Random 115 mg/dL (60-115); Potassium 4.6 mmol/L (3.3-5.1); Sodium 134 mmol/L (135-145)
--- NOTE | 2022-03-15 14:25 | PC.NURSE ---
Patient to X ray
--- NOTE | 2022-03-15 16:46 | PC.NURSE ---
Patient resting comfortably no distress noted denies chest pain or SOB will CTM
--- NOTE | 2022-03-15 17:14 | P.HPHOSP_ITS ---
History of Present Illness Date of Service: 03/15/22 Attending physician on admission: Sabrina Prado Chief Complaint: Syncope This is a 82-year-old sister with past medical history significant for mild intermittent asthma, history of hypertension, hyperlipidemia, history of atrial fibrillation on flecainide, Eliquis, status post lumpectomy for breast cancer was attending a when she felt warm sweaty and lightheaded and she passed out and slumped over in a chair there was no pulse , for 30 seconds patient became more awake alert got better and it happened again that she passed out lasting 45 seconds with no bladder incontinence, no shakiness no tongue biting subsequently EMS was called and patient was brought in to [facility] as per patient she has had 2-3 similar episodes in the past, and remember that she was told that it was vagovagal episode, patient is compliant with her home medications including flecainide and Eliquis she denies recent bout of nausea vomiting abdominal pain or diarrhea, she has recently finished a course of prednisone for 5 days as well as doxycycline for possible bronchitis, her cough is better she denies fever chills, EKG showed sinus bradycardia first-degree AV block, patient has chronic bradycardia with heart rate in 50s, a chest x-ray is unremarkable COVID is negative she has normal electrolytes [place] [id number] likely due to recent use of steroids finger oximetry 96% on room air, orthostatic vitals and UA not obtained. Review of Systems Review of Systems: General no headache, no dizziness no fever chills. CVS no chest pain, no palpitation. Respiratory no sob Gastrointestinal no nausea no vomiting, no abdominal pain no urgency, no frequency Yes all other systems are reviewed and are negative COUNT INCLUDES [facility] Medical History Afib Asthma Chronic cough Chronic rhinitis CKD (chronic kidney disease), stage III COVID-19 vaccine series completed Deafness in right ear Dyspnea GERD (gastroesophageal reflux disease) History of breast cancer (~2017) History of syncope HLD (hyperlipidemia) HTN (hypertension) On anticoagulant therapy On beta sloan at home Osteopenia (~2008) Post-nasal drip Functional capacity: independent ambulation Pertinent family history: Mother had high blood pressure Surgical History H/O eye surgery History of appendectomy History of colonoscopy History of lumpectomy of right breast (~2017) History of total left knee replacement (TKR) (~2020) History of total right knee replacement (TKR) (~2010) Hx of cataract extraction Social History Are you a primary child care counselor to a significant other at home: No Do you presently have visiting nurse or other home services: No Alcohol intake: unknown Patient Tobacco Use Status: Never used Tobacco Smoked in Last 30 Days: No Advance Directives: Yes Advance Directives Information Provided: Yes Advance Directives on File: No service: No Current occupational status: retired Current occupation: rt handed Meds Allergies Allergy/AdvReac Type Severity Reaction Status Date / Time dorzolamide [DORZOLAMIDE] Allergy Intermediate ITCHING, Verified 11/16/21 13:07 SEVERE EYE REDNESS, redness, discharge from eyes certain eye drop (pt unsure) Allergy Unknown inflammatio Uncoded 11/16/21 13:07 n Active Medications: Current Medications Acetaminophen (Acetaminophen 325 Mg Tablet) 650 mg PO Q6H PRN PRN Reason: Pain, Mild (Pain Scale 1-3) Albuterol Sulfate (Albuterol Sulfate 90 Mcg 8 Gm Inhaler) 2 puff INHALE Q4H PRN PRN Reason: Shortness Of Breath Apixaban (Apixaban 5 Mg Tablet) 5 mg PO BID TONY Aspirin (Aspirin Enteric Coated 81 Mg Tablet.Dr) 81 mg PO DAILY [facility] Atorvastatin Calcium (Atorvastatin Calcium 20 Mg Tablet) 20 mg PO BEDTIME TONY Bisoprolol Fumarate (Bisoprolol Fumarate 5 Mg Tablet) 5 mg PO DAILY TONY Calcium Carbonate (Calcium Carbonate 500 Mg Tablet) 500 mg PO DAILY TONY Famotidine (Famotidine 20 Mg Tablet) 10 mg PO DAILY TONY Flecainide Acetate (Flecainide Acetate 50 Mg Tablet) 50 mg PO BID TONY Fluticasone Propionate (Fluticasone Propionate Nasal 16 Gm [place]) 1 spray NOSTRIL-B DAILY TONY Guaifenesin/Dextromethorphan (Guaifenesin Dm 100/10/5 Ml 5 Ml Syrup) 10 ml PO Q 6H PRN PRN Reason: cough Melatonin (Melatonin 3 Mg Tablet) 3 mg PO BEDTIME PRN PRN Reason: Insomnia Montelukast Sodium (Montelukast Sodium 10 Mg Tablet) 10 mg PO BEDTIME [facility] Non-Formulary Medication (Bimatoprost [Lumigan]) 1 drop EYE-BOTH DAILY [facility] Non-Formulary Medication (Fluticasone Propionate [Flovent Hfa]) 2 puff INHALE DAILY [facility] Ondansetron HCl (Ondansetron Hcl 4 Mg/2 Ml Vial) 4 mg IVPUSH Q8H PRN PRN Reason: Nausea and Vomiting Pharmacy Consult (Consult Rx Perform Med Rec) 1 each MISCELLANE ONCE PRN PRN Reason: Consult order Sodium Chloride (0.9 % Sodium Chloride Flush 3 Ml Syringe) 3 ml IVFLUSH QSHIFT [facility] Vitamin D (Cholecalciferol (Vitamin D3) 25 Mcg Tablet) 25 mcg PO DAILY [facility] Home Medications Medication Instructions Recorded Confirmed Last Taken Type apixaban 5 mg tablet (Eliquis) 1 tab PO BID 09/19/20 03/15/22 09/23/20 History atorvastatin 20 mg tablet 1 tab PO BEDTIME 09/19/20 03/15/22 Unknown History bisoprolol fumarate 5 mg tablet 5 mg PO DAILY 09/19/20 03/15/22 Unknown History cholecalciferol (vitamin D3) 25 25 mcg PO DAILY 09/19/20 03/15/22 Unknown History mcg (1,000 unit) tablet (Vitamin D3) famotidine 10 mg tablet (Pepcid AC) 10 mg PO DAILY 09/19/20 03/15/22 Unknown History fluticasone propionate 50 1 spray intranasal DAILY 09/19/20 03/15/22 Unknown History mcg/actuation nasal spray,suspension flecainide 50 mg tablet 1 tab PO BID 09/27/20 03/15/22 Unknown History bimatoprost 0.01 % eye drops 1 drp ophthalmic (eye) DAILY 08/15/21 03/15/22 Unknown History (Lumigan) cetirizine 10 mg tablet (Zyrtec) 10 mg PO DAILY 11/16/21 03/15/22 Unknown History albuterol sulfate 90 mcg/actuation 2 puff inhalation Q4H PRN 03/15/22 03/15/22 Unknown History aerosol inhaler Shortness Of Breath aspirin 81 mg tablet,delayed 81 mg PO DAILY 03/15/22 03/15/22 Unknown History release calcium carbonate 500 mg calcium 500 mg PO DAILY 03/15/22 03/15/22 Unknown History (1,250 mg) tablet doxycycline hyclate 100 mg capsule 100 mg PO BID 03/15/22 03/15/22 Unknown History losartan 100 mg tablet 1 tab PO DAILY 03/15/22 03/15/22 Unknown History Physical Exam Vital Signs and Narrative: Vital Signs: Last Vital Signs Temp 97.7 F 03/15/22 13:03 Pulse 56 03/15/22 16:10 Resp 14 03/15/22 16:10 BP 153/52 H 03/15/22 16:10 Pulse Ox 96 03/15/22 16:10 O2 Del Method 03/15/22 16:10 BMI result Body Mass Index 31.0 Const: Other: General awake alert x3, resting comfortably in no acute distress. Anicteric sclera no nystagmus Neck supple no JVD. CVS regular rate rhythm, Respiratory lungs clear to auscultation, no respiratory distress, no wheeze, no rhonchi. Gastrointestinal abdomen soft, nontender, bowel sounds audible, no guarding , no rigidity. Extremities no edema. Neuro nonfocal, moving all 4 extremity speech clear, face symmetrical. Skin no rash Psych appropriate affect Results Labs CBC and Chem 7: 03/15/22 13:23 03/15/22 13:23 Labs: Laboratory Results - last 24 hr 03/15/22 03/15/22 03/15/22 13:06 13:23 13:23 MCV 92.3 MCH 30.3 MCHC 32.9 RDW 13.9 Plt Count 440 H D MPV 9.1 L Immature Gran % (Auto) 0.8 H Neut % (Auto) 63.6 Lymph % (Auto) 28.3 [place] % (Auto) 5.9 Eos % (Auto) 0.9 Baso % (Auto) 0.5 Lymph # (Auto) 4.5 [place] # (Auto) 0.9 Eos # (Auto) 0.1 Baso # (Auto) 0.1 Abs Immat Gran (auto) 0.13 H Absolute Neuts (auto) 10.1 H Absolute Nucleated RBC 0.000 Nucleated RBC % (auto) 0.0 Anion Gap 16 Estim Creat Clear Calc 39.7 Estimated GFR 45 POC Glucose 106 Random Glucose 115 Calcium 8.9 D Imaging Radiologist's Impressions: Impressions Chest X-Ray 03/15/22 14:31 IMPRESSION: Unremarkable examination. Assessment and Plan (1) Syncope: Status: Acute Plan 82-year-old female patient with past medical history significant for atrial fibrillation on flecainide and Eliquis, history of hypertension, hyperlipidemia with prior episode of syncope presented to [facility] with syncope. Syncope Likely vasovagal since patient felt lightheaded and warm prior to passing out, will check orthostatic studies, tele monitor with history of atrial fibrillation on flecainide No evidence of acute infection, no neuro deficit, no DORIS, elevated WBC likely due to steroids, Patient is being followed at [facility] Will obtain Cardiology consultation Hypertension continue home medications follow BP Atrial fibrillation in normal sinus rhythm with sinus bradycardia continue flecainide, Eliquis and bisoprolol. History of intermittent asthma recently finished course of prednisone on doxycycline, chest x-ray unremarkable, normal lung examination will discontinue doxycycline Code status full code DVT prophylaxis on Eliquis Patient admitted under observation for syncope Time Spent With Patient Time: Total time managing care of this patient today ____ minutes. Quality Stroke Does the patient have a stroke diagnosis?: No VTE Prior VTE?: No VTE Risk Level:: Medical - moderate - high VTE Device Contraindication: Treatment Not Indicated VTE Drug Contraindication: N/A - Med Ordered
[2022-03-15] MEDS: Apixaban 5 MG TABLET PO (21:38)
[2022-03-15] MEDS: Atorvastatin Calcium 20 MG TABLET PO (21:38)
[2022-03-15] MEDS: Montelukast Sodium 10 MG TABLET PO (21:38)
[2022-03-15] MEDS: Flecainide Acetate 50 MG TABLET PO (23:47)
[2022-03-16 00:18] LABS: COVID-19 Test Negative (Negative); IDNOW Serial# BCCEAD1C
--- NOTE | 2022-03-16 02:40 | MHC.EDTECH ---
THIS PCT JUST ASSUMED CARE OF PT ,PT WAS HOOKED UP TO CONTOUR SANDER ,WARM BLANKET GIVEN .
[2022-03-16 04:00] VITALS: BP 171/72; PULSE 61; RESP 20; TEMP 36.7; O2SAT 95
--- NOTE | 2022-03-16 04:22 | MHC.EDTECH ---
PT GOT UP AND WAS SIDE BY SIDE ESCORT TO THE BATHROOM ,BACK TO BED VITAL SIGN TAKEN ,I ASK PT IF SHE NEED ANYTHING ELSE ,PT SAID SHE WOULD LOVE A GLASS OF ICE COLD WATER .
[2022-03-16 06:02] VITALS: O2SAT 95
[2022-03-16] MEDS: 0.9 % Sodium Chloride Flush 3 ML SYRINGE IVFLUSH ×2 (06:06→08:10)
--- NOTE | 2022-03-16 07:04 | PC.NURSE ---
RN to RN report given to CIARA Salas. Pt being transferred to [facility] [place].
[2022-03-16 07:45] VITALS: BP 182/77; PULSE 66; RESP 20; TEMP 36.1; O2SAT 97
[2022-03-16] MEDS: Aspirin Enteric Coated 81 MG TABLET.DR PO (08:08)
[2022-03-16] MEDS: Apixaban 5 MG TABLET PO (08:08)
[2022-03-16] MEDS: Cholecalciferol (Vitamin D3) 25 MCG TABLET PO (08:08)
[2022-03-16] MEDS: Famotidine 20 MG TABLET 10 MG PO (08:08)
[2022-03-16] MEDS: Flecainide Acetate 50 MG TABLET PO (08:15)
[2022-03-16] MEDS: Losartan Potassium 50 MG TABLET 100 MG PO (08:21)
--- NOTE | 2022-03-16 09:11 | MHC.CM.PN ---
CM met with Patient at bedside and addressed CORDOBA with her, providing her with the original and placing a copy on the chart. Patient lives alone in an apartment and she required no DME nor services [employer]. Home self care is the goal and CM has initiated and will follow for dc planning. Patient has received Pfizer/Covid vax x5 and her PCP is Dr. Jansen.
--- NOTE | 2022-03-16 10:42 | PM.CNCAR ---
History of Present Illness History of Present Illness Date of Service: 03/16/22 Chief complaint: syncope Narrative: This is a cardiology consultation regarding syncopal episode. She goes to [facility]. She is maintained on a combination of bisoprolol and flecainide. She was apparently at a yesterday when all of sudden she felt warm and sweaty and slumped in a chair. According to admission documentation, she did not have a pulse for about 30 seconds or so. Then she came around. Not entirely clear if she was truly pulseless or not but that is available history. Today, she is back to normal self. She does have some baseline AK prolongation on the EKG but no known heart blocks. I also reviewed the [facility] documentation from November. She has a history of paroxysmal atrial fibrillation, hypertension dyslipidemia per office note. She apparently has had a 30 day monitor but that did not show any significant bradycardic events. She has also had other studies including echocardiogram as well as stress testing which were also unremarkable. Today, she states she feels okay. No new complaints. Essentially back to normal self. Review of Systems Review of Systems: Yes all other systems are reviewed and are negative Constitutional: Constitutional: Reports as per HPI Eyes: Eyes: Reports as per HPI ENT: Reports as per HPI Cardiovascular: Cardiovascular: Reports as per HPI, Denies acrocyanosis, Denies cool extremities, Denies chest pain, Denies leg edema, Denies lightheadedness, Denies palpitations and Denies dyspnea Respiratory: Respiratory: Reports as per HPI, Reports no additional respiratory complaints and Denies dyspnea Gastrointestinal: Gastrointestinal: Reports as per HPI and Reports no additional gastrointestinal complaints Genitourinary: Genitourinary: Reports as per HPI Musculoskeletal: Musculoskeletal: Reports no additional musculoskeletal complaints and Reports as per HPI Integumentary/Breasts: Skin/Breast: Reports system reviewed and no additional complaints, except as docu Neurologic: Reports system reviewed and no additional complaints, except as documented and Reports as per HPI Psychiatric: Psychiatric: Reports no additional psychiatric complaints and Reports as per HPI Endocrine: Endocrine: Reports no additional endocrine complaints, Reports as per HPI and Denies palpitations Hematologic/Lymphatic: Hematologic/Lymphatic: Reports no additional hematologic/lymphatic complaints and Reports as per HPI Allergic/Immunologic: Allergic/Immunologic: Reports no additional allergic/immunologic complaints and Reports as per HPI [facility] Past Medical History Medical History Afib Asthma Chronic cough Chronic rhinitis CKD (chronic kidney disease), stage III COVID-19 vaccine series completed Deafness in right ear Dyspnea GERD (gastroesophageal reflux disease) History of breast cancer (~2017) History of syncope HLD (hyperlipidemia) HTN (hypertension) On anticoagulant therapy On beta sloan at home Osteopenia (~2008) Post-nasal drip Functional capacity: independent ambulation Family History Family History (Updated 03/16/22 @ 10:47 by Danielito Wilkinson MD) Mother Essential hypertension Surgical History Surgical History H/O eye surgery History of appendectomy History of colonoscopy History of lumpectomy of right breast (~2017) History of total left knee replacement (TKR) (~2020) History of total right knee replacement (TKR) (~2010) Hx of cataract extraction Social History Social History Household Members: None Housing: Apartment Are you a primary transitional care manager to a significant other at home: No Do you presently have visiting nurse or other home services: No Alcohol intake: unknown Patient Tobacco Use Status: Never used Tobacco Second Hand Smoke Exposure: No Advance Directives Date on File: 03/16/22 service: No Current occupational status: retired Current occupation: rt handed Meds Allergies Allergy/AdvReac Type Severity Reaction Status Date / Time dorzolamide [DORZOLAMIDE] Allergy Intermediate ITCHING, Verified 11/16/21 13:07 SEVERE EYE REDNESS, redness, discharge from eyes certain eye drop (pt unsure) Allergy Unknown inflammatio Uncoded 11/16/21 13:07 n Active Medications: Current Medications Acetaminophen (Acetaminophen 325 Mg Tablet) 650 mg PO Q6H PRN PRN Reason: Pain, Mild (Pain Scale 1-3) Albuterol Sulfate (Albuterol Sulfate 90 Mcg 8 Gm Inhaler) 2 puff INHALE Q4H PRN PRN Reason: Shortness Of Breath Apixaban (Apixaban 5 Mg Tablet) 5 mg PO BID [facility] Last Admin: 03/16/22 08:08 Dose: 5 mg Aspirin (Aspirin Enteric Coated 81 Mg Tablet.Dr) 81 mg PO DAILY [facility] Last Admin: 03/16/22 08:08 Dose: 81 mg Atorvastatin Calcium (Atorvastatin Calcium 20 Mg Tablet) 20 mg PO BEDTIME [facility] Last Admin: 03/15/22 21:38 Dose: 20 mg Bisoprolol Fumarate (Bisoprolol Fumarate 5 Mg Tablet) 5 mg PO DAILY [facility] Calcium Carbonate (Calcium Carbonate 500 Mg Tablet) 500 mg PO DAILY [facility] Last Admin: 03/16/22 08:08 Dose: 500 mg Famotidine (Famotidine 20 Mg Tablet) 10 mg PO DAILY [facility] Last Admin: 03/16/22 08:08 Dose: 10 mg Flecainide Acetate (Flecainide Acetate 50 Mg Tablet) 50 mg PO BID [facility] Last Admin: 03/16/22 08:15 Dose: 50 mg Fluticasone Propionate (Fluticasone Propionate Nasal 16 Gm Trevor) 1 spray NOSTRIL-B DAILY [facility] Fluticasone Propionate (Fluticasone Propionate 100 Mcg Blst.W.Dev) 2 puff INHALE RDAILY [facility] Last Admin: 03/16/22 07:40 Dose: Not Given Guaifenesin/Dextromethorphan (Guaifenesin Dm 100/10/5 Ml 5 Ml Syrup) 10 ml PO Q6H PRN PRN Reason: cough Latanoprost (Latanoprost 0.005 % Ophth Armida 2.5 Ml Drops) 1 drop EYE-BOTH BEDTIME [facility] Last Admin: 03/15/22 23:55 Dose: Not Given Losartan Potassium (Losartan Potassium 50 Mg Tablet) 100 mg PO DAILY [facility]; Protocol Last Admin: 03/16/22 08:21 Dose: 100 mg Melatonin (Melatonin 3 Mg Tablet) 3 mg PO BEDTIME PRN PRN Reason: Insomnia Montelukast Sodium (Montelukast Sodium 10 Mg Tablet) 10 mg PO BEDTIME [facility] Last Admin: 03/15/22 21:38 Dose: 10 mg Ondansetron HCl (Ondansetron Hcl 4 Mg/2 Ml Vial) 4 mg IVPUSH Q8H PRN PRN Reason: Nausea and Vomiting Pharmacy Consult (Consult Rx Perform Med Rec) 1 each MISCELLANE ONCE PRN PRN Reason: Consult order Sodium Chloride (0.9 % Sodium Chloride Flush 3 Ml Syringe) 3 ml IVFLUSH QSHIFT [facility] Last Admin: 03/16/22 08:10 Dose: 3 ml Vitamin D (Cholecalciferol (Vitamin D3) 25 Mcg Tablet) 25 mcg PO DAILY [facility] Last Admin: 03/16/22 08:08 Dose: 25 mcg Home Medications Medication Instructions Recorded Confirmed Last Taken Type apixaban 5 mg tablet (Eliquis) 1 tab PO BID 09/19/20 03/15/22 09/23/20 History atorvastatin 20 mg tablet 1 tab PO BEDTIME 09/19/20 03/15/22 Unknown History bisoprolol fumarate 5 mg tablet 5 mg PO DAILY 09/19/20 03/15/22 Unknown History cholecalciferol (vitamin D3) 25 25 mcg PO DAILY 09/19/20 03/15/22 Unknown History mcg (1,000 unit) tablet (Vitamin D3) famotidine 10 mg tablet (Pepcid AC) 10 mg PO DAILY 09/19/20 03/15/22 Unknown History fluticasone propionate 50 1 spray intranasal DAILY 09/19/20 03/15/22 Unknown History mcg/actuation nasal spray,suspension flecainide 50 mg tablet 1 tab PO BID 09/27/20 03/15/22 Unknown History bimatoprost 0.01 % eye drops 1 drp ophthalmic (eye) DAILY 08/15/21 03/15/22 Unknown History (Lesley) cetirizine 10 mg tablet (Zyrtec) 10 mg PO DAILY 11/16/21 03/15/22 Unknown History albuterol sulfate 90 mcg/actuation 2 puff inhalation Q4H PRN 03/15/22 03/15/22 Unknown History aerosol inhaler Shortness Of Breath aspirin 81 mg tablet,delayed 81 mg PO DAILY 03/15/22 03/15/22 Unknown History release calcium carbonate 500 mg calcium 500 mg PO DAILY 03/15/22 03/15/22 Unknown History (1,250 mg) tablet doxycycline hyclate 100 mg capsule 100 mg PO BID 03/15/22 03/15/22 Unknown History losartan 100 mg tablet 1 tab PO DAILY 03/15/22 03/15/22 Unknown History Physical Exam Vital Signs: Vital Signs: Last Vital Signs Temp 97.0 F 03/16/22 07:45 Pulse 66 03/16/22 07:45 Resp 20 03/16/22 07:45 BP 182/77 H 03/16/22 07:45 Pulse Ox 97 03/16/22 07:45 O2 Del Method 03/16/22 07:45 BMI result Body Mass Index 31.0 Const: General: comfortable and no acute distress Orientation/consciousness: patient oriented x3 HEENT: Other: Unremarkable Head: Yes normal to inspection Neck: Neck: Yes normal visual inspection Chest: Chest palpation & inspection: normal inspection of the chest Resp: Auscultation: clear to auscultation bilaterally Cardio: Palpation: normal PMI Heart sounds: S1 normal heart sound present, S2 normal heart sound present, no gallops, no murmurs and no rubs GI: Palpation (GI): Soft to palpation Back/Spine/Pelvis: Other: unremarkable Skin: General skin exam: no rashes or lesions noted Neuro: General: patient oriented x3 Extrem: General: Yes normal to inspection Psych: Mental Status: mental status grossly normal Objective Labs and Meds 03/15/22 13:23 03/15/22 13:23 Lab results: Laboratory Results - last 24 hr 03/15/22 03/15/22 03/15/22 13:06 13:23 13:23 WBC 15.8 H RBC 4.02 L Hgb 12.2 Hct 37.1 MCV 92.3 MCH 30.3 MCHC 32.9 RDW 13.9 Plt Count 440 H D MPV 9.1 L Immature Gran % (Auto) 0.8 H Neut % (Auto) 63.6 Lymph % (Auto) 28.3 Falls % (Auto) 5.9 Eos % (Auto) 0.9 Baso % (Auto) 0.5 Lymph # (Auto) 4.5 Falls # (Auto) 0.9 Eos # (Auto) 0.1 Baso # (Auto) 0.1 Abs Immat Gran (auto) 0.13 H Absolute Neuts (auto) 10.1 H Absolute Nucleated RBC 0.000 Nucleated RBC % (auto) 0.0 Sodium 134 L Potassium 4.6 Chloride 101 Carbon Dioxide 22 Anion Gap 16 BUN 32 H D Creatinine 1.15 Estim Creat Clear Calc 39.7 Estimated GFR 45 POC Glucose 106 Random Glucose 115 Calcium 8.9 D COVID-19 (MARNIE) COVID-19 Clin Com 03/15/22 23:58 WBC RBC Hgb Hct MCV MCH MCHC RDW Plt Count MPV Immature Gran % (Auto) Neut % (Auto) Lymph % (Auto) Falls % (Auto) Eos % (Auto) Baso % (Auto) Lymph # (Auto) Falls # (Auto) Eos # (Auto) Baso # (Auto) Abs Immat Gran (auto) Absolute Neuts (auto) Absolute Nucleated RBC Nucleated RBC % (auto) Sodium Potassium Chloride Carbon Dioxide Anion Gap BUN Creatinine Estim Creat Clear Calc Estimated GFR POC Glucose Random Glucose Calcium COVID-19 (MARNIE) Negative COVID-19 Clin Com See Note ECG Interpretation: EKG with sinus bradycardia 54/Min; AK prolongation to 230 milliseconds; incomplete right bundle-branch block. Imaging Radiologist's impression: Impressions Chest X-Ray 03/15/22 14:31 IMPRESSION: Unremarkable examination. Assessment and Plan (1) Syncope: Status: Acute (2) PAF (paroxysmal atrial fibrillation): Status: Acute (3) Encounter for monitoring anti-arrhythmic therapy: Status: Acute Plan [facility] documentation reviewed. LVEF 55-60%. No obvious wall motion abnormalities. No significant valve disease described either. Myocardial perfusion imaging study-no evidence of stress-induced ischemia or infarction. Prior 30 day monitor with resting heart rate 50-70/Min. Some heart rates as much as 118. No clear atrial fibrillation or Geoffrey arrhythmias described. Overall, not clear what the syncope is from. She has had multiple prior episodes too. Vasovagal is possible. However, the question of having been pulseless is also concerning for asystole or complete heart block. Hence we will need to stop the flecainide for now. Recommend implantable loop recorder for further evaluation. She absolutely wants to follow-up only at [facility]. Hence advised to contact them for appointments. Discussed with . Time Spent With Patient Time: Total time managing care of this patient today 60 minutes. Procedures Date of Service Date of Service: 03/16/22
[2022-03-16] MEDS: Fluticasone Propionate Nasal 16 GM SPRAY 1 SPRAY NOSTRIL-B (10:54)
[2022-03-16] MEDS: Bisoprolol Fumarate 5 MG TABLET PO (10:54)
--- NOTE | 2022-03-16 11:17 | PM.DS ---
DS: Providers Provider Date of Service: 03/16/22 Date of admission: 03/15/22 16:43 Primary care physician: Amairani Jansen MD Consults: 03/15/22 17:05 Consult to Cardiology Routine Consulting Provider: Danielito Wilkinson Reason for consultation: SYNCOPE Has provider been notified: No DS: Diagnosis Discharge Diagnosis (1) Syncope: Status: Acute (2) PAF (paroxysmal atrial fibrillation): Status: Acute (3) Encounter for monitoring anti-arrhythmic therapy: Status: Acute DS: Summary Hospital Course Hospital Course: Date of Service: 03/15/22 Attending physician on admission: Sabrina Prado Chief Complaint: Syncope This is a 82-year-old sister with past medical history significant for mild intermittent asthma, history of hypertension, hyperlipidemia, history of atrial fibrillation on flecainide, Eliquis, status post lumpectomy for breast cancer was attending a when she felt warm sweaty and lightheaded and she passed out and slumped over in a chair there was no pulse , for 30 seconds patient became more awake alert got better and it happened again that she passed out lasting 45 seconds with no bladder incontinence, no shakiness no tongue biting subsequently EMS was called and patient was brought in to [facility] as per patient she has had 2-3 similar episodes in the past, and remember that she was told that it was vagovagal episode, patient is compliant with her home medications including flecainide and Eliquis she denies recent bout of nausea vomiting abdominal pain or diarrhea, she has recently finished a course of prednisone for 5 days as well as doxycycline for possible bronchitis, her cough is better she denies fever chills, EKG showed sinus bradycardia first-degree AV block, patient has chronic bradycardia with heart rate in 50s, a chest x-ray is unremarkable COVID is negative she has normal electrolytes [place] [id number] likely due to recent use of steroids finger oximetry 96% on room air, orthostatic vitals and UA not obtained. Home Medications ?Medication ?Instructions ?Recorded ?Confirmed ?Last Taken ?Type apixaban 5 mg tablet (Eliquis) 1 tab PO BID 09/19/20 03/15/22 09/23/20 History atorvastatin 20 mg tablet 1 tab PO BEDTIME 09/19/20 03/15/22 Unknown History bisoprolol fumarate 5 mg tablet 5 mg PO DAILY 09/19/20 03/15/22 Unknown History cholecalciferol (vitamin D3) 25 25 mcg PO DAILY 09/19/20 03/15/22 Unknown History mcg (1,000 unit) tablet (Vitamin ? D3) ? famotidine 10 mg tablet (Pepcid AC) 10 mg PO DAILY 09/19/20 03/15/22 Unknown History fluticasone propionate 50 1 spray intranasal DAILY 09/19/20 03/15/22 Unknown History mcg/actuation nasal ? spray,suspension ? flecainide 50 mg tablet 1 tab PO BID 09/27/20 03/15/22 Unknown History bimatoprost 0.01 % eye drops 1 drp ophthalmic (eye) DAILY 08/15/21 03/15/22 Unknown History ([place]) ? cetirizine 10 mg tablet (Zyrtec) 10 mg PO DAILY 11/16/21 03/15/22 Unknown History albuterol sulfate 90 mcg/actuation 2 puff inhalation Q4H PRN 03/15/22 03/15/22 Unknown History aerosol inhaler Shortness Of Breath ? aspirin 81 mg tablet,delayed 81 mg PO DAILY 03/15/22 03/15/22 Unknown History release ? calcium carbonate 500 mg calcium 500 mg PO DAILY 03/15/22 03/15/22 Unknown History (1,250 mg) tablet ? doxycycline hyclate 100 mg capsule 100 mg PO BID 03/15/22 03/15/22 Unknown History losartan 100 mg tablet 1 tab PO DAILY 03/15/22 03/15/22 Unknown History 03/15/22 13:23? 03/15/22 13:23? Labs: Laboratory Results - last 24 hr ? 03/15/22 03/15/22 03/15/22 ? 13:06 13:23 13:23 MCV ? ? ?92.3 MCH ? ? ?30.3 MCHC ? ? ?32.9 RDW ? ? ?13.9 Plt Count ? ? ?440 H D MPV ? ? ?9.1 L Immature Gran % (Auto) ? ? ?0.8 H Neut % (Auto) ? ? ?63.6 Lymph % (Auto) ? ? ?28.3 Wolfe % (Auto) ? ? ?5.9 Eos % (Auto) ? ? ?0.9 Baso % (Auto) ? ? ?0.5 Lymph # (Auto) ? ? ?4.5 Wolfe # (Auto) ? ? ?0.9 Eos # (Auto) ? ? ?0.1 Baso # (Auto) ? ? ?0.1 Abs Immat Gran (auto) ? ? ?0.13 H Absolute Neuts (auto) ? ? ?10.1 H Absolute Nucleated RBC ? ? ?0.000 Nucleated RBC % (auto) ? ? ?0.0 Anion Gap ? ?16 ? Estim Creat Clear Calc ? ?39.7 ? Estimated GFR ? ?45 ? POC Glucose ?106 ? ? Random Glucose ? ?115 ? Calcium ? ?8.9? D ? Hospital course 82-year-old female patient with past medical history significant for atrial fibrillation on flecainide and Eliquis, history of hypertension, hyperlipidemia with several prior episode of syncope presented to [facility] with syncope patient admitted to telemetry unit orthostatic studies were negative, telemetry showed no arrhythmia patient had no neurological symptoms no evidence of infection, patient evaluated by social science manager Dr. Wilkinson cause of syncope likely vasovagal but due to concern for 30 seconds falls he recommended to stop flecainide for asystole or possible heart block, he recommended implantable loop recorder for further evaluation patient wishes to follow-up at [facility] cardiology therefore recommended to have appointment at [facility], patient recommended to return to [place] ER if noted to have recurrent chest pain shortness of breath lightheadedness or dizziness. In regard to Hypertension recommended to continue all home medication Atrial fibrillation in normal sinus rhythm with sinus bradycardia continue Eliquis and bisoprolol History of intermittent asthma recently finished course of prednisone and doxycycline, chest x-ray unremarkable, normal lung examination. Time Spent with Patient Time attestation: Total time managing care of this patient today ____ minutes. Discharge coordination time: Greater than 30 minutes Quality: Safe Use of Opioids Does Pt have an Active Cancer Diagnosis on the Problem List?: No Quality: Stroke Does the patient have a stroke diagnosis?: No Physical Exam Vital Signs: Vital Signs: Last Vital Signs Temp 97.0 F 03/16/22 07:45 Pulse 66 03/16/22 07:45 Resp 20 03/16/22 07:45 BP 182/77 H 03/16/22 07:45 Pulse Ox 97 03/16/22 07:45 O2 Del Method 03/16/22 07:45 BMI result Body Mass Index 31.0 Const: Other: General awake alert x3, resting comfortably in no acute distress. Anicteric sclera no nystagmus Neck? supple no JVD. CVS? regular rate rhythm, Respiratory lungs clear to auscultation, no respiratory distress, no wheeze, no rhonchi. Gastrointestinal abdomen soft, nontender, bowel sounds audible, no guarding , no rigidity. Extremities no edema. Neuro nonfocal, moving all 4 extremity speech clear, face symmetrical. Skin no rash Psych appropriate affect DS: Data Data Completed and Pending Labs on day of discharge: Laboratory Results - last 24 hr 03/15/22 03/15/22 03/15/22 13:06 13:23 13:23 WBC 15.8 H RBC 4.02 L Hgb 12.2 Hct 37.1 MCV 92.3 MCH 30.3 MCHC 32.9 RDW 13.9 Plt Count 440 H D MPV 9.1 L Immature Gran % (Auto) 0.8 H Neut % (Auto) 63.6 Lymph % (Auto) 28.3 Wolfe % (Auto) 5.9 Eos % (Auto) 0.9 Baso % (Auto) 0.5 Lymph # (Auto) 4.5 Wolfe # (Auto) 0.9 Eos # (Auto) 0.1 Baso # (Auto) 0.1 Abs Immat Gran (auto) 0.13 H Absolute Neuts (auto) 10.1 H Absolute Nucleated RBC 0.000 Nucleated RBC % (auto) 0.0 Sodium 134 L Potassium 4.6 Chloride 101 Carbon Dioxide 22 Anion Gap 16 BUN 32 H D Creatinine 1.15 Estim Creat Clear Calc 39.7 Estimated GFR 45 POC Glucose 106 Random Glucose 115 Calcium 8.9 D COVID-19 (MARNIE) COVID-19 Clin Com 03/15/22 23:58 WBC RBC Hgb Hct MCV MCH MCHC RDW Plt Count MPV Immature Gran % (Auto) Neut % (Auto) Lymph % (Auto) Wolfe % (Auto) Eos % (Auto) Baso % (Auto) Lymph # (Auto) Wolfe # (Auto) Eos # (Auto) Baso # (Auto) Abs Immat Gran (auto) Absolute Neuts (auto) Absolute Nucleated RBC Nucleated RBC % (auto) Sodium Potassium Chloride Carbon Dioxide Anion Gap BUN Creatinine Estim Creat Clear Calc Estimated GFR POC Glucose Random Glucose Calcium COVID-19 (MARNIE) Negative COVID-19 Clin Com See Note Discharge Plan Discharge Patient Disposition: Home, Self-Care Discharge Diagnosis: Syncope Referrals: Amairani Jansen MD [Primary Care Provider] - 1 Week Discharge Medications: Continued Flovent HFA 110 mcg/actuation HFA aerosol inhaler 2 puff inhalation DAILY 30 Days Qty: 12 11RF montelukast 10 mg tablet 10 mg PO BEDTIME Qty: 90 3RF fluticasone propionate 50 mcg/actuation spray,suspension 1 spray intranasal DAILY atorvastatin 20 mg tablet 1 tab PO BEDTIME bisoprolol fumarate 5 mg Tablet 5 mg PO DAILY Eliquis 5 mg tablet 1 tab PO BID famotidine [Pepcid AC] 10 mg Tablet 10 mg PO DAILY cholecalciferol (vitamin D3) [Vitamin D3] 25 mcg (1,000 unit) Tablet 25 mcg PO DAILY aspirin 81 mg Tablet,Delayed Release (Dr/Ec) 81 mg PO DAILY calcium carbonate 500 mg calcium (1,250 mg) Tablet 500 mg PO DAILY albuterol sulfate 90 mcg/actuation HFA aerosol inhaler 2 puff INHALATION Q4H PRN (Reason: Shortness Of Breath) losartan 100 mg tablet 1 tab PO DAILY Lumigan 0.01 % drops 1 drp ophthalmic (eye) DAILY (DME) Aerochamber Plus Z Stat Spacer See Rx Instructions .Route Qty: 1 0RF Rx Instructions: As directed cetirizine [Zyrtec] 10 mg tablet 10 mg PO DAILY Discontinued flecainide 50 mg tablet 1 tab PO BID doxycycline hyclate 100 mg capsule 100 mg PO BID Rx Instructions: STARTED 03/09/22 Discharge Orders: Discharge Order (Routine); Ordered 03/16/22 Ordered By: Sabrina Prado Diet: Advance to usual diet Activity on Discharge: As tolerated Stand Alone Forms: Patient Portal Discharge page Care Plan Goals: Syncope likely vasovagal, due to 30 sec pause concern about asystole or heart block stop flecainide, outpatient implantable loop recorder for further evaluation patient wishes to follow at [facility] recommend to call for appointment. Return to ER if noted to have chest pain, palpitations lightheadedness or feeling of fainting. Health Concerns: Continue all home medication as before stop Flecainide as above Plan of Treatment: Outpatient follow-up with primary care physician and arrange for Cardiology at [facility] Assessment: As above
[2022-03-16 11:25] VITALS: BP 192/80; PULSE 65; RESP 20; TEMP 36.1; O2SAT 97
--- NOTE | 2022-03-16 11:36 | MHC.CM.PN ---
Patient has been medically cleared for dc to home today, self care.
[2022-03-16] MEDS: ALPRAZolam 0.25 MG TABLET PO (12:00)
== END 2022-03-16 13:47 | disposition home or self-care (01) ==
LOC: HO.ED 16:16 → HO.EDOVER 17:04 → HO.IMC 03-16 06:46
PROVIDERS: Student in an Organized Health Care Education/Training Program; Admitting Provider Hospitalist; Emergency Provider Student in an Organized Health Care Education/Training Program; PCP Internal Medicine; Visit Provider Hospitalist
DX: R55 Syncope and collapse (principal); I48.0 Paroxysmal atrial fibrillation; Z20.822 Contact with and (suspected) exposure to COVID-19; Z79.899 Other long term (current) drug therapy; Z51.81 Encounter for therapeutic drug level monitoring
CPT/HCPCS: 36415; 71046; 80048; 82947; 85025; 87635; 93005; 96374; 99205; 99222; 99285

== ENCOUNTER 2022-06-04 13:55 | Outpatient (REF) | payer MEDICARE, MEDICAID, SELFPAY ==
--- NOTE | 2022-06-05 14:18 | MHC.AU.HA3 ---
Hearing Instrument Follow-Up- Binaural Date of Visit: 06/04/22 Right Ear: Make, Model, Color, Serial Number: [place] [id number] SN: [id number] Color: Chroma Beige Arboreal Scientist Repair Warranty: 01/22/2023 Arboreal Scientist Loss and Damage Warranty: 01/22/2023 Battery Size: 312 Anesthesiology Physician Assistant/Slim Tube: 1/85 Earmold/Dome/CShell/SlimTip:6mm open dome Type of Wax Guard: miniFit Dispensed By: [facility] Date of Fitting: December 2019 Left Ear: Make, Model, Color, Serial Number: [place] [id number] SN: [id number] Color: Chroma Beige Arboreal Scientist Repair Warranty: 01/22/2023 Arboreal Scientist Loss and Damage Warranty: 01/22/2023 Battery Size: 312 Anesthesiology Physician Assistant/Slim Tube: 1/85 Earmold/Dome/CShell/SlimTip: 6mm open dome Type of Wax Guard: miniFit Dispensed By: [facility] Date of Fitting: December 2019 Follow-Up Summary: Mari was a previous patient at the [facility]. She experienced sudden sensorineural hearing loss in her right ear in April 2018. She subsequently tried a traditional hearing aid on the right ear; however, due to lack of perceived benefit a BiCROS system was recommended. Mari was more successful and noticed more of an improvement in her hearing with the BiCROS system. Mari reported that her right CROS device will not hold in a wax guard. Cleaned both devices. Replaced domes, wax guards, and retention tails. Vacuumed microphones. Able to successfully change the right wax guard two times in office. A listening check demonstrated that both devices are working appropriately. Mari reported that she thinks her hearing has changed as she is not hearing as well as when she was first fit with the hearing aids. Discussed updated hearing evaluation and subsequent reprogramming. Recommendations: Hearing instrument maintenance in 6 months, or sooner if needed. Recommendations (Other): Mari will obtain a doctor's order for an updated hearing test from her primary care physician. Diagnosis Code(s): Primary Diagnosis: H90.3 Bilateral Sensorineural Hearing Loss Signature: Provider: Junior Treviño, [facility]
== END 2022-06-04 13:56 | disposition home or self-care (01) ==
LOC: HO.HAP 13:55
PROVIDERS: Visit Provider Internal Medicine
DX: Z46.1 Encounter for fitting and adjustment of hearing aid (principal); H90.3 Sensorineural hearing loss, bilateral
CPT/HCPCS: 92593; 99499

== ENCOUNTER → 2022-08-27 14:37 | Outpatient (BNVA) | payer MEDICARE, MEDICAID, SELFPAY | PROVIDERS: PCP Student in an Organized Health Care Education/Training Program; Visit Provider Hospitalist | DX: J45.20 Mild intermittent asthma, uncomplicated (principal); J31.0 Chronic rhinitis; R06.00 Dyspnea, unspecified; R05.3 Chronic cough; K21.00 Gastro-esophageal reflux disease with esophagitis, without bleeding | CPT/HCPCS: 99212 ==

== ENCOUNTER 2022-11-26 12:56 | Outpatient (REF) | payer MEDICARE, MEDICAID, SELFPAY ==
--- NOTE | 2022-11-26 15:23 | MHC.AU.HA3 ---
Hearing Instrument Follow-Up- Binaural Date of Visit: 11/26/22 Right Ear: Make, Model, Color, Serial Number: Oticon CROS SN: [id number] Color: Chroma Beige Lead Dental Assistant Repair Warranty: 01/22/2023 Lead Dental Assistant Loss and Damage Warranty: 01/22/2023 Battery Size: 312 Conservation Enforcement Officer/Slim Tube: 1/85 Earmold/Dome/CShell/SlimTip:6mm open dome with retention tail Type of Wax Guard: miniFit Dispensed By: [facility] Date of Fitting: December 2019 Left Ear: Make, Model, Color, Serial Number: Oticon [id number] S2 [id number]-[id number] SN: [id number] Color: Chroma Beige Lead Dental Assistant Repair Warranty: 01/22/2023 Lead Dental Assistant Loss and Damage Warranty: 01/22/2023 Battery Size: 312 Conservation Enforcement Officer/Slim Tube: 1/85 Earmold/Dome/CShell/SlimTip: 6mm open dome with retention tail Type of Wax Guard: miniFit Dispensed By: [facility] Date of Fitting: December 2019 Follow-Up Summary: Reprogrammed left hearing aid following updated audio (see separate report). Although her hearing has not changed significantly, Mari reported that she is not hearing as well as when she was first fit with the hearing aids (possibly due to decrease of settings for acclimatization purposes at initial fit). She is missing beginning sounds or has difficulty understanding the conversation if someone starts talking without her attention. Performed real ear measures and increased high frequencies to better match target. Reran feedback analyzer. Mari reported that the hearing aid sounded louder and was agreeable to trying the new settings in her everyday listening environments. Also discussed how attention/focus can impact overall hearing and understanding. Recommendations: Hearing instrument follow-up or maintenance as needed. Please contact our clinic with any questions or concerns. Patient will call if problems persist. Diagnosis Code(s): Primary Diagnosis: H90.3 Bilateral Sensorineural Hearing Loss Signature: Provider: Junior Treviño, [facility]
== END 2022-11-26 12:57 | disposition home or self-care (01) ==
LOC: HO.SH 12:56
PROVIDERS: Visit Provider Student in an Organized Health Care Education/Training Program
DX: Z01.118 Encounter for examination of ears and hearing with other abnormal findings (principal); H90.3 Sensorineural hearing loss, bilateral
CPT/HCPCS: 92557; V5020

== ENCOUNTER 2022-12-04 11:16 | Outpatient (REF) | payer MEDICARE, MEDICAID, SELFPAY ==
--- NOTE | 2022-12-04 12:08 | PFT_ITS ---
Forced vital capacity 84%, FEV1 86%, FEV1/FVC ratio 75. [id number] 94% and MVV 91%. Post bronchodilator therapy, there is no change. Total lung capacity 80%, residual volume 80%. Diffusion capacity 69% CONCLUSION: Normal pulmonary function test and no evidence of obstructive or restrictive pulmonary disorder. No response to bronchodilator therapy. MD MIKE Alfaro/JOSÉ ANTONIOL / [id number]
== END 2022-12-04 11:17 | disposition home or self-care (01) ==
LOC: HO.RESP 11:16
PROVIDERS: PCP Student in an Organized Health Care Education/Training Program; Visit Provider Hospitalist
DX: J45.20 Mild intermittent asthma, uncomplicated (principal)
CPT/HCPCS: 94010; 94727; 94729

== ENCOUNTER → 2022-12-04 12:08 | Outpatient (BNV) | payer MEDICARE, MEDICAID, SELFPAY | PROVIDERS: PCP Student in an Organized Health Care Education/Training Program; Visit Provider Internal Medicine | DX: R06.09 Other forms of dyspnea (principal) | CPT/HCPCS: 94060; 94727; 94729 ==

== ENCOUNTER 2022-12-25 08:35 | Outpatient (AMB) | payer MEDICARE, MEDICAID, SELFPAY ==
[2022-12-25 08:36] VITALS: BMI 32.9
--- NOTE | 2022-12-25 08:36 | A.OFFVIS_ITS ---
Intake Vital Signs 12/25/22 08:36 Height 5 ft 2 in Weight 180 lb BMI 32.9 Intake Visit Reasons: Dyspnea Irrigation Foreman Required: No Allergies dorzolamide [DORZOLAMIDE] Allergy (Intermediate, Verified 12/25/22 08:36) ITCHING, SEVERE EYE REDNESS, redness, discharge from eyes certain eye drop (pt unsure) Allergy (Unknown, Uncoded 12/25/22 08:36) inflammation HPI HPI Comments History of Present Illness Details The patient is an 82-year-old woman with a known history of allergies, chronic rhinitis, mild intermittent asthma presenting today with chronic cough. She has been coughing now for about 5-6 years. The cough has become a nuisance for her. Where she does cough sporadically. When she coughs is usually productive in nature white phlegm. She feels is mainly in the throat area. She has been evaluated before specially by Allergy and was diagnosed with upper airway cough syndrome. She was provided a prescription fluticasone to use. But, she does not use it regularly. She does have a rescue inhaler that she has available that she never uses or feels like she needs. On further questioning she does have reflux symptoms. The patient does have taking PPI in the past but now stopping due to her concerns with osteopenia. She does take Pepcid at this time. The Pepcid is effective for her reflux symptoms. She has had allergy testing in the past for positive for both dogs and cats. She was treated with allergy shots and now is able to be around them without any issues. Otherwise patient is without any other complaints. We did review her imaging studies. She did have an x-ray at [facility] back 02/27/2021 demonstrating no acute disease. 06/12/2021 the patient is here for a pulmonary follow-up visit. She still complaining of dyspnea on exertion wnim-og-fuzgxywb severity. Worsens when going up a flight of stairs. The patient does likely have a multifactorial issue going on. She did undergo pulmonary function studies and we actually compared to PFTs from 2015. No definitive obstructive nor restrictive ventilatory defects identified. Although, she did have evidence of small airways disease that were little more apparent in 2015. the only new issue is that her diffusing capacity significant decrease from 2015 from 90% to now 72% predicted. This brings up the many etiologies. She did have significant anemia back in September 2020 when she underwent her knee surgery. Hemoglobin decreased from 12.5 to 8.4. Explained to her that if she indeed has anemia this will affect her diffusing capaity and can result in shortness of breath. we also did review her last CT scan of the chest which demonstrated no evidence of any interstitial lung disease or airspace disease to account for the decrease in diffusing capacity. Another etiology to explain the isolated diffusion impairment is pulmonary vascular conditions if she is volume overloaded. The patient is also working on weight loss which will also help her breathing. In the meantime the patient has been on singular. This appears to be affecting beneficial. In view of the evidence of small airways disease I will also start her on Flovent. We did talk about starting a combination inhaler. But, with a history to fibrillation she understands that this can increase her heart rate and potentially trigger AFib. Therefore, she would like to hold off on if possible. 08/15/2021 the patient is here for a pulmonary follow-up visit. Her cough is overall better. Although she still having some episodes of coughing. Kvvx-qs-imchhhwv severity. She has been using the Flovent. She has noticed inc reased hoarseness. On further questioning she is brushing her teeth but she is not rinsing her mouth. Or gargling. I did encourage her to use mouthwash better than water. However, also think that will decrease her Flovent to 1 puff a day and also will go ahead and provide her with a spacer to minimize upper airway irritation. The patient has been using montelukast at nighttime. Will add an antihistamine during the daytime also to treated for the significant allergies. I am hopeful that this will help with any upper airway cough syndrome. She continues to have dyspnea on exertion. Based on her PFTs she did have about isolated diffusion impairment. She does have a upcoming evaluation with her commercial illustrator. It is reassuring that hemoglobin did improve not normalize therefore not contributing to her dyspnea symptoms. 11/16/2021 the patient is here for a pulmo nary follow-up visit. Overall the patient has been doing better. Her cough has significantly improved. Although she still has episodes of cough which is usually productive in nature. She has to wonder with could be coming from. She also continues her allergy therapy. She does have a component of postnasal drip. She also has issues with reflux disease specially when she has spicy or acidic foods. We did talk about the importance of the reflux diet and also sleeping elevated. We did review her chest x-ray today. She has a slight elevation of the left hemidiaphragm. No obvious abnormality although the x-ray has not been read as of yet. She continues with the Flovent daily. She is rinsing well when using the spacer. Seems like is better she is tolerating better. I do believe the patient may have some residual symptoms. But, is not work increasing her medications. I will continue her current respiratory regimen. She could consider as needed Tessalon Perles as needed for cough. 08/27/2022 the patient is here for a pulm onary follow-up visit. The patient still feels about the same. Still having a cough and shortness of breath with activity. Her his cough can be sporadic in nature. Does not quite see any improvement with the use of Flovent. She tried Tessalon Perles also without any significant improvement. We did review her pulmonary function studies which demonstrated a component of obstructive ventilatory defect. She did not have a significant response to bronchodilators noted. We talked about optimizing her respiratory therapy. However, she does have a history of glaucoma and would not recommend using any anticholinergics. Therefore will go ahead and switch over to Advair HFA. The patient should rinse well afterwards to minimize on hoarseness. She has also been trying the nasal therapies with partial improvement. We did review her chest x-ray that she had back in March when she had a syncopal episode. Those without any significant findings. Will go ahead and try the Advair. If the patient continues with ongoing shortness of breath and cough then will request a CT scan of the chest to further address her ongoing symptoms. 12/25/2022 the patient has a telehealth visit today. Overall the patient has been doing a lot better. She continues with respiratory therapy with good effect. She has not had to use her rescue inhaler more than once or twice a month. Denies any respiratory limitations. The patient did undergo her pulmonary function studies which are reassuring without any evidence of any definitive obstructive nor restrictive ventilatory defects. Although she does have some slight obstructive physiology. Explained to the patient that she may have triggers such as reflux viral illnesses that may potentially trigger her to have significant obstructions. But in the meantime she is doing well on the current regimen. We also reviewed her last chest x-ray that was reassuring. No additional imaging studies are warranted right now. The patient will continue with current respiratory therapy will plan to follow-up in 6 months. [facility] Medical History Afib Asthma Chronic cough Chronic rhinitis CKD (chronic kidney disease), stage III COVID-19 vaccine series completed Deafness in right ear Dyspnea GERD (gastroesophageal reflux disease) History of breast cancer (~2017) History of syncope HLD (hyperlipidemia) HTN (hypertension) On anticoagulant therapy On beta sloan at home Osteopenia (~2008) Post-nasal drip Surgical History H/O eye surgery History of appendectomy History of colonoscopy History of lumpectomy of right breast (~2017) History of total left knee replacement (TKR) (~2020) History of total right knee replacement (TKR) (~2010) Hx of cataract extraction Family History (Updated 03/16/22 @ 10:47 by Danielito Wilkinson MD) Mother Essential hypertension Social History Household Members: None Housing: Apartment Are you a primary property caretaker to a significant other at home: No Do you presently have visiting nurse or other home services: No Alcohol intake: unknown Patient Tobacco Use Status: Never used Tobacco Second Hand Smoke Exposure: No Advance Directives Date on File: 03/16/22 service: No Current occupational status: retired Current occupation: rt handed Review of Systems Const Denies body aches, Denies chills and Denies fever(s) Eyes Denies change in vision ENT Denies dysphagia, Denies hoarseness, Denies nasal congestion, Denies nasal discharge and Denies post nasal drip Card Denies chest pain and Reports dyspnea on exertion Resp Denies chest congestion, Reports cough, Denies pain with cough, Reports dyspnea on exertion and Denies stridor GI Denies dysphagia, Reports dyspepsia and Reports heartburn Reports no additional complaints Musc Reports no additional complaints Skin/Breast Denies rash Neuro Reports no additional complaints Physical Exam Vital Signs: BMI result Body Mass Index 32.9 Const General: comfortable Orientation/consciousness: patient oriented x3 Resp Effort & Inspection: normal respiratory effort and able to speak in complete sentences Neuro General: patient oriented x3 Assessment & Plan Assessment & Plan (1) Asthma: Code(s): J45.909 - Unspecified asthma, uncomplicated Qualifiers: Asthma complication type: uncomplicated Asthma persistence: intermittent Asthma severity: mild Qualified Code(s): J45.20 - Mild intermittent asthma, uncomplicated (2) Chronic cough: Code(s): R05.3 - Chronic cough (3) GERD (gastroesophageal reflux disease): Code(s): K21.9 - Gastro-esophageal reflux disease without esophagitis Qualifiers: Esophagitis bleeding: without hemorrhage Esophagitis presence: with esophagitis Qualified Code(s): K21.00 - Gastro-esophageal reflux disease with esophagitis, without bleeding (4) Chronic rhinitis: Code(s): J31.0 - Chronic rhinitis (5) Dyspnea: Code(s): R06.00 - Dyspnea, unspecified Qualifiers: Dyspnea type: dyspnea on exertion Qualified Code(s): R06.00 - Dyspnea, unspecified Plan SHASHANK as needed Advair HFA continue Fluticasone 2 sprays each nostril in am (Benzonates as needed for cough did not work) continue zyrtec as needed continue singulair REflux diet HOB elevated at night F/U 6-8 months Telehealth Telehealth Location of provider rendering services: practice address Location of patient: address on file Patient Identification confirmed using: Name, : Yes Telehealth method: voice only Patient verbally consented to treatment: Yes Patient verbally consented to billing insurance company: Yes Patient informed of any privacy concerns related to visit: Yes Coding Level of Care Code Tele Est Pt Level 4 (87440) Diagnoses Mild intermittent asthma without complication J45.20 Asthma complication type: uncomplicated Asthma persistence: intermittent Asthma severity: mild Chronic cough R05.3 Gastroesophageal reflux disease with esophagitis without hemorrhage K21.00 Esophagitis bleeding: without hemorrhage Esophagitis presence: with esophagitis Chronic rhinitis J31.0 Dyspnea on exertion R06.00 Dyspnea type: dyspnea on exertion Time Spent (min) 14
== END 2022-12-25 09:03 | disposition home or self-care (01) ==
PROVIDERS: PCP Student in an Organized Health Care Education/Training Program; Referring Provider Internal Medicine; Visit Provider Hospitalist
DX: J45.20 Mild intermittent asthma, uncomplicated (principal); J31.0 Chronic rhinitis; K21.00 Gastro-esophageal reflux disease with esophagitis, without bleeding
CPT/HCPCS: 99442

== ENCOUNTER → 2022-12-25 08:35 | Outpatient (BNVA) | payer MEDICARE, MEDICAID, SELFPAY | PROVIDERS: PCP Student in an Organized Health Care Education/Training Program; Visit Provider Hospitalist ==

== ENCOUNTER 2023-03-20 09:26 | Outpatient (REF) | payer MEDICARE, MEDICAID, SELFPAY ==
--- NOTE | ~2023-03-20 | MM_ITS ---
EXAMINATION: MM SCREENING DIGITAL BREAST TOMOSYNTHESIS, BILATERAL CLINICAL INFORMATION: Screening. Asymptomatic. History of treated right breast cancer in 2018. COMPARISON: Mammography: This study is compared with prior exams dating back to TECHNIQUE: Digital breast tomosynthesis is performed in both the craniocaudal and mediolateral oblique views along with computer-aided detection (CAD). Synthesized 2D images are generated from the tomosynthesis. FINDINGS: There are scattered areas of fibroglandular density (ACR BI-RADS breast composition Category b). There are no significant masses, abnormal calcifications, or other abnormalities. There are postsurgical changes in the superior aspect of the right breast from prior cancer treatment. There are bilateral, unchanged benign calcifications. MM/MM tomosynthesis screening BI IMPRESSION: No mammographic evidence of malignancy. ASSESSMENT: BI-RADS BI-RADS 2 - Benign Findings RECOMMENDATION: Routine annual mammography screening. 1 year F/U This examination should not preclude the clinical evaluation of a suspicious palpable abnormality. This patient's information was entered into a reminder system with a target due date for their next mammogram.
== END 2023-03-20 09:27 | disposition home or self-care (01) ==
LOC: HO.MAMMO 09:26
PROVIDERS: Visit Provider Internal Medicine
DX: Z12.31 Encounter for screening mammogram for malignant neoplasm of breast (principal)
CPT/HCPCS: 77063; 77067

== ENCOUNTER → 2023-03-20 09:30 | Outpatient (BNV) | payer MEDICARE, MEDICAID, SELFPAY | PROVIDERS: Visit Provider Radiology Diagnostic Radiology | DX: Z12.31 Encounter for screening mammogram for malignant neoplasm of breast (principal) | CPT/HCPCS: 77063; 77067 ==

== ENCOUNTER 2023-07-25 12:56 | Outpatient (AMB) | payer MEDICARE, MEDICAID, SELFPAY ==
[2023-07-25 13:09] VITALS: PULSE 73; O2SAT 93; BMI 32.6
--- NOTE | 2023-07-25 13:09 | A.OFFVIS_ITS ---
Vital Signs 07/25/23 13:09 Height 5 ft 2 in Weight 178 lb BMI 32.6 Pulse 73 Pulse Source Pulse Oximeter Pulse Oximetry (%) 93 Oxygen Delivery Method Room Air Intake Visit Reasons: Dyspnea Supervisor Train Operations Required: No Allergies dorzolamide [DORZOLAMIDE] Allergy (Intermediate, Verified 07/25/23 13:10) ITCHING, SEVERE EYE REDNESS, redness, discharge from eyes certain eye drop (pt unsure) Allergy (Unknown, Uncoded 07/25/23 13:10) inflammation HPI Comments Details: The patient is an 83-year-old woman with a known history of allergies, chronic rhinitis, mild intermittent asthma presenting today with chronic cough. She has been coughing now for about 5-6 years. The cough has become a nuisance for her. Where she does cough sporadically. When she coughs is usually productive in nature white phlegm. She feels is mainly in the throat area. She has been evaluated before specially by Allergy and was diagnosed with upper airway cough syndrome. She was provided a prescription fluticasone to use. But, she does not use it regularly. She does have a rescue inhaler that she has available that she never uses or feels like she needs. On further questioning she does have reflux symptoms. The patient does have taking PPI in the past but now stopping due to her concerns with osteopenia. She does take Pepcid at this time. The Pepcid is effective for her reflux symptoms. She has had allergy testing in the past for positive for both dogs and cats. She was treated with allergy shots and now is able to be around them without any issues. Otherwise patient is without any other complaints. We did review her imaging studies. She did have an x-ray at [facility] back 02/27/2021 demonstrating no acute disease. 12/25/2022 the patient has a telehealth visit today. Overall the patient has been doing a lot better. She continues with respiratory therapy with good effect. She has not had to use her rescue inhaler more than once or twice a month. Denies any respiratory limitations. The patient did undergo her pulmonary function studies which are reassuring without any evidence of any definitive obstructive nor restrictive ventilatory defects. Although she does have some slight obstructive physiology. Explained to the patient that she may have triggers such as reflux viral illnesses that may potentially trigger her to have significant obstructions. But in the meantime she is doing well on the current regimen. We also reviewed her last chest x-ray that was reassuring. No additional imaging studies are warranted right now. The patient will continue with current respiratory therapy will plan to follow-up in 6 months. 07/25/2023 the patient is here for a pulmonary follow-up visit. Overall she is feeling better. She still coughing on a daily basis but less. The patient continues use her respiratory medicines with good effect. In addition to that we did review her last chest x-ray demonstrating some slight elevation of the left hemidiaphragm with some peribronchial cuffing suggesting some degree of bronchitis. Patient should get a should repeat a chest x-ray since last 1 was more than a year ago. Otherwise she has also been noticing some lower extremity edema. Seems like her right leg is more swollen. She has had issues with her knee but this has been new. She does not take blood thinners. Denies any history of blood clots. The patient has been started on Norvasc last few months. I did explain to her that it may be a side effects on the medication. But if the patient continues to have the lower extremity edema primarily of the right side then a Doppler study will be important to just rule out blood clots. She will continue with the current respiratory therapy. She will receive the Prevnar 20 today. She will follow-up in 6 months. [facility] Medical History Afib Asthma Chronic cough Chronic rhinitis CKD (chronic kidney disease), stage III COVID-19 vaccine series completed Deafness in right ear Dyspnea GERD (gastroesophageal reflux disease) History of breast cancer (~2017) History of syncope HLD (hyperlipidemia) HTN (hypertension) On anticoagulant therapy On beta sloan at home Osteopenia (~2008) Post-nasal drip Surgical History H/O eye surgery History of appendectomy History of colonoscopy History of lumpectomy of right breast (~2017) History of total left knee replacement (TKR) (~2020) History of total right knee replacement (TKR) (~2010) Hx of cataract extraction Family History (Updated 03/16/22 @ 10:47 by Danielito Wilkinson MD) Mother Essential hypertension Social History Household Members: None Housing: Apartment Are you a primary home health care case manager to a significant other at home: No Do you presently have visiting nurse or other home services: No Alcohol intake: unknown Patient Tobacco Use Status: Never used Tobacco Second Hand Smoke Exposure: No Advance Directives Date on File: 03/16/22 service: No Current occupational status: retired Current occupation: rt handed Review of Systems Const Denies body aches, Denies chills, Denies fever(s) and Reports weight gain Eyes Denies change in vision ENT Denies dysphagia, Denies hoarseness, Denies nasal congestion, Denies nasal discharge and Denies post nasal drip Card Denies chest pain and Reports dyspnea on exertion Resp Denies chest congestion, Reports cough, Denies pain with cough, Reports dyspnea on exertion and Denies stridor GI Denies dysphagia, Reports dyspepsia and Reports heartburn Reports no additional complaints Musc Reports no additional complaints Skin/Breast Denies rash Neuro Reports no additional complaints Physical Exam Vital Signs: Last Vital Signs Pulse 73 07/25/23 13:09 Pulse Ox 93 07/25/23 13:09 Oxygen Delivery Method Room Air 07/25/23 13:09 BMI result Body Mass Index 32.6 Const General: alert Neck Neck: Yes normal visual inspection, Yes full ROM and Yes no lymphadenopathy Chest Chest palpation & inspection: normal inspection of the chest Resp Effort & Inspection: prolonged expiratory phase Auscultation: no rales, no rhonchi, no wheezes and diminished lung sounds Cardio Rate: regular rate Rhythm: regular rhythm Heart sounds: S1 normal heart sound present and S2 normal heart sound present GI Palpation (GI): Soft to palpation and nontender Auscultation: normal bowel sounds Skin General skin exam: rashes and/or lesions noted Extrem General: Yes edema Assessment & Plan Assessment & Plan (1) Asthma: Code(s): J45.909 - Unspecified asthma, uncomplicated Category: Medical Qualifiers: Asthma complication type: uncomplicated Asthma persistence: intermittent Asthma severity: mild Qualified Code(s): J45.20 - Mild intermittent asthma, uncomplicated (2) Chronic cough: Code(s): R05.3 - Chronic cough Category: Medical (3) GERD (gastroesophageal reflux disease): Code(s): K21.9 - Gastro-esophageal reflux disease without esophagitis Category: Medical Qualifiers: Esophagitis bleeding: without hemorrhage Esophagitis presence: with esophagitis Qualified Code(s): K21.00 - Gastro-esophageal reflux disease with esophagitis, without bleeding (4) Chronic rhinitis: Code(s): J31.0 - Chronic rhinitis Category: Medical (5) Dyspnea: Code(s): R06.00 - Dyspnea, unspecified Category: Medical Qualifiers: Dyspnea type: dyspnea on exertion Qualified Code(s): R06.00 - Dyspnea, unspecified Plan SHASHANK as needed Advair HFA continue Fluticasone 2 sprays each nostril in am (Benzonates as needed for cough did not work) continue zyrtec as needed continue singulair REflux diet HOB elevated at night CXR LE doppler RLE for swelling F/U 6-8 months Orders: Orders XR chest 2V Today J45.20 - Mild intermittent asthma, uncomplicated US venous duplex LE RT Today M79.89 - Other specified soft tissue disorders Pneumococcal 20 Immunization Today J45.20 - Mild intermittent asthma, uncomplicated Coding Level of Care Code Est Pt Level 4 (07958) Diagnoses Mild intermittent asthma without complication J45.20 Asthma complication type: uncomplicated Asthma persistence: intermittent Asthma severity: mild Chronic cough R05.3 Gastroesophageal reflux disease with esophagitis without hemorrhage K21.00 Esophagitis bleeding: without hemorrhage Esophagitis presence: with esophagitis Chronic rhinitis J31.0 Dyspnea on exertion R06.00 Dyspnea type: dyspnea on exertion Time Spent (min) 17
== END 2023-07-25 13:37 | disposition home or self-care (01) ==
PROVIDERS: PCP Student in an Organized Health Care Education/Training Program; Referring Provider Internal Medicine; Visit Provider Hospitalist
DX: J45.20 Mild intermittent asthma, uncomplicated (principal); R05.3 Chronic cough; K21.00 Gastro-esophageal reflux disease with esophagitis, without bleeding; J31.0 Chronic rhinitis; R06.00 Dyspnea, unspecified
CPT/HCPCS: 99214

== ENCOUNTER → 2023-07-25 12:56 | Outpatient (BNVA) | payer MEDICARE, MEDICAID, SELFPAY | PROVIDERS: PCP Student in an Organized Health Care Education/Training Program; Referring Provider Internal Medicine; Visit Provider Hospitalist | DX: J45.20 Mild intermittent asthma, uncomplicated (principal); R05.3 Chronic cough; J31.0 Chronic rhinitis; R06.00 Dyspnea, unspecified; K21.00 Gastro-esophageal reflux disease with esophagitis, without bleeding; Z79.899 Other long term (current) drug therapy; Z23 Encounter for immunization | CPT/HCPCS: 90471; 90677; 99212 ==

== ENCOUNTER 2023-07-29 14:55 | Outpatient (REF) | payer MEDICARE, MEDICAID, SELFPAY ==
--- NOTE | ~2023-07-29 | US_ITS ---
EXAMINATION: US VENOUS ULTRASOUND WITH DOPPLER LOWER EXTREMITY, RIGHT CLINICAL INFORMATION: Swelling of right lower extremity COMPARISON: None available. TECHNIQUE: Ultrasound of the deep veins is performed from the hip to the calf with compression sonography and color and pulse Doppler assessment. Spectral analysis with color-flow imaging is performed. FINDINGS: There is normal venous compression and respiratory variation and augmented flow. The visualized common femoral vein, superficial femoral vein, profunda femoral vein, popliteal vein, and the trifurcation region shows no evidence of deep venous thrombosis. There is no significant popliteal fossa cyst. If the patient's symptoms persist, followup ultrasound in 5 days 7 days might be of value to exclude proximal propagation from a non-visualized calf vein. US/US venous duplex LE RT IMPRESSION: No DVT demonstrated in the right lower extremity.
== END 2023-07-29 14:56 | disposition home or self-care (01) ==
LOC: HO.US 14:55
PROVIDERS: PCP Student in an Organized Health Care Education/Training Program; Visit Provider Hospitalist
DX: R60.0 Localized edema (principal); M79.89 Other specified soft tissue disorders
CPT/HCPCS: 93971

== ENCOUNTER 2023-09-20 14:21 | Outpatient (REF) | payer MEDICARE, MEDICAID, SELFPAY ==
--- NOTE | ~2023-09-20 | XR_ITS ---
EXAMINATION: XR CHEST CLINICAL INFORMATION: Mild intermittent asthma uncomplicated, patient states shortness of breath for years. COMPARISON: 03/15/2022 TECHNIQUE: 2 views of the chest were obtained. FINDINGS: Dextroscoliosis of the thoracic spine with multilevel degenerative changes. Heart size within normal limits. There is no gross pneumothorax. No pleural effusion. No new focal consolidation to suggest pneumonia. XR/XR chest 2V IMPRESSION: No evidence of pneumonia.
== END 2023-09-20 14:22 | disposition home or self-care (01) ==
LOC: HO.XRAY 14:21
PROVIDERS: PCP Student in an Organized Health Care Education/Training Program; Visit Provider Hospitalist
DX: J45.20 Mild intermittent asthma, uncomplicated (principal)
CPT/HCPCS: 71046

== ENCOUNTER 2023-09-26 13:52 | Outpatient (REF) | payer MEDICARE, MEDICAID, SELFPAY | END 2023-09-26 13:53 | disposition home or self-care (01) | LOC: HO.HAP 13:52 | PROVIDERS: Visit Provider Student in an Organized Health Care Education/Training Program | DX: Z46.1 Encounter for fitting and adjustment of hearing aid (principal); H90.3 Sensorineural hearing loss, bilateral | CPT/HCPCS: 92593; 99499 ==

== ENCOUNTER 2023-10-02 13:54 | Outpatient (REF) | payer MEDICARE, MEDICAID, SELFPAY | END 2023-10-02 13:55 | disposition home or self-care (01) | LOC: HO.HAP 13:54 | PROVIDERS: Visit Provider Student in an Organized Health Care Education/Training Program | DX: Z13.89 Encounter for screening for other disorder (principal) ==

== ENCOUNTER 2023-12-19 14:23 | Outpatient (AMB) | payer MEDICARE, MEDICAID, SELFPAY ==
[2023-12-19 14:36] VITALS: BP 140/78; PULSE 73; O2SAT 97; BMI 32.5
--- NOTE | 2023-12-19 14:36 | A.OFFVIS_ITS ---
Vital Signs 12/19/23 14:36 Height 5 ft 2 in Weight 177 lb 7.554 oz BMI 32.5 BP 140/78 H Blood Pressure Location Lt brachial Position Sitting Pulse 73 Pulse Source Pulse Oximeter Pulse Oximetry (%) 97 Oxygen Delivery Method Room Air Intake Visit Reasons: Dyspnea Rfid Manager Required: No Allergies dorzolamide [DORZOLAMIDE] Allergy (Intermediate, Verified 12/19/23 14:38) ITCHING, SEVERE EYE REDNESS, redness, discharge from eyes certain eye drop (pt unsure) Allergy (Unknown, Uncoded 12/19/23 14:38) inflammation HPI Comments Details: The patient is an 83-year-old woman with a known history of allergies, chronic rhinitis, mild intermittent asthma presenting today with chronic cough. She has been coughing now for about 5-6 years. The cough has become a nuisance for her. Where she does cough sporadically. When she coughs is usually productive in nature white phlegm. She feels is mainly in the throat area. She has been evaluated before specially by Allergy and was diagnosed with upper airway cough syndrome. She was provided a prescription fluticasone to use. But, she does not use it regularly. She does have a rescue inhaler that she has available that she never uses or feels like she needs. On further questioning she does have reflux symptoms. The patient does have taking PPI in the past but now stopping due to her concerns with osteopenia. She does take Pepcid at this time. The Pepcid is effective for her reflux symptoms. She has had allergy testing in the past for positive for both dogs and cats. She was treated with allergy shots and now is able to be around them without any issues. Otherwise patient is without any other complaints. We did review her imaging studies. She did have an x-ray at [facility] back 02/27/2021 demonstrating no acute disease. 12/25/2022 the patient has a telehealth visit today. Overall the patient has been doing a lot better. She continues with respiratory therapy with good effect. She has not had to use her rescue inhaler more than once or twice a month. Denies any respiratory limitations. The patient did undergo her p ulmonary function studies which are reassuring without any evidence of any definitive obstructive nor restrictive ventilatory defects. Although she does have some slight obstructive physiology. Explained to the patient that she may have triggers such as reflux viral illnesses that may potentially trigger her to have significant obstructions. But in the meantime she is doing well on the current regimen. We also reviewed her last chest x-ray that was reassuring. No additional imaging studies are warranted right now. The patient will continue with current respiratory therapy will plan to follow-up in 6 months. 07/25/2023 the patient is here for a pulmonary follow-up visit. Overall she is feeling better. She still coughing on a daily basis but less. The patient continues use her respiratory medicines with good effect. In addition to that we did review her last chest x-ray demonstrating some slight elevation of the left hemidiaphragm with some peribronchial cuffing suggesting some degree of bronchitis. Patient should get a should repeat a chest x-ray since last 1 was more than a year ago. Otherwise she has also been noticing some lower extremity edema. Seems like her right leg is more swollen. She has had issues with her knee but this has been new. She does not take blood thinners. Denies any history of blood clots. The patient has been started on Norvasc last few m onths. I did explain to her that it may be a side effects on the medication. But if the patient continues to have the lower extremity edema primarily of the right side then a Doppler study will be important to just rule out blood clots. She will continue with the current respiratory therapy. She will receive the Prevnar 20 today. She will follow-up in 6 months. 12/19/2023 the patient is here for sick visit. She is presenting with worsening cough for the last couple months. Usually productive in nature. Typically feels like it is coming from the left lung. She does have sporadic coughing episodes a random times. She has been using the Advair. She never uses the rescue inhaler. The patient did have previous imaging studies with some peribronchial cuffing. We did review her last chest x-ray also the demonstrating some scoliosis and also slight elevation of the left hemidiaphragm. 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 If she is not better she will have an x-ray and she will call. She also has some nasal congestion and some chronic rhinitis with some epistaxis. She is using fluticasone and we talked about the proper use of the fluticasone for avoid the septum and also saline gel or water-based lubricant to help her with the irritation to the mucosa. The patient will return to 3 months. If she has any worsening symptoms or if she is no better she will call. [facility] Medical History Afib Asthma Chronic cough Chronic rhinitis CKD (chronic kidney disease), stage III COVID-19 vaccine series completed Deafness in right ear Dyspnea GERD (gastroesophageal reflux disease) History of breast cancer (~2017) History of syncope HLD (hyperlipidemia) HTN (hypertension) On anticoagulant therapy On beta sloan at home Osteopenia (~2008) Post-nasal drip Surgical History H/O eye surgery History of appendectomy History of colonoscopy History of lumpectomy of right breast (~2017) History of total left knee replacement (TKR) (~2020) History of total right knee replacement (TKR) (~2010) Hx of cataract extraction Family History (Updated 03/16/22 @ 10:47 by Danielito Wilkinson MD) Mother Essential hypertension Social History Household Members: None Housing: Apartment Are you a primary wound care technician to a significant other at home: No Do you presently have visiting nurse or other home services: No Alcohol intake: unknown Patient Tobacco Use Status: Never used Tobacco Second Hand Smoke Exposure: No Advance Directives Date on File: 03/16/22 service: No Current occupational status: retired Current occupation: rt handed Review of Systems Const Denies body aches, Denies chills, Denies fever(s) and Reports weight gain Eyes Denies change in vision ENT Denies dysphagia, Denies hoarseness, Denies nasal congestion, Denies nasal discharge and Denies post nasal drip Card Denies chest pain and Reports dyspnea on exertion Resp Reports chest congestion, Reports cough, Denies pain with cough, Reports dyspnea on exertion and Denies stridor GI Denies dysphagia, Reports dyspepsia and Reports heartburn Reports no additional complaints Musc Reports no additional complaints Skin/Breast Denies rash Neuro Reports no additional complaints Physical Exam Vital Signs: Last Vital Signs Pulse 73 12/19/23 14:36 BP 140/78 H 12/19/23 14:36 Pulse Ox 97 12/19/23 14:36 Oxygen Delivery Method Room Air 12/19/23 14:36 BMI result Body Mass Index 32.5 Const General: alert HEENT General nose exam: Abnormal mucous membranes and turbinates present (some bleeding) erythematous Neck Neck: Yes normal visual inspection, Yes full ROM and Yes no lymphadenopathy Chest Chest palpation & inspection: normal inspection of the chest Resp Effort & Inspection: prolonged expiratory phase Auscultation: no rales, no rhonchi, no wheezes and diminished lung sounds Cardio Rate: regular rate Rhythm: regular rhythm Heart sounds: S1 normal heart sound present and S2 normal heart sound present GI Palpation (GI): Soft to palpation and nontender Auscultation: normal bowel sounds Skin General skin exam: rashes and/or lesions noted Extrem General: Yes edema Assessment & Plan Assessment & Plan (1) Asthma: Code(s): J45.909 - Unspecified asthma, uncomplicated Category: Medical Qualifiers: Asthma complication type: uncomplicated Asthma persistence: intermittent Asthma severity: mild Qualified Code(s): J45.20 - Mild intermittent asthma, uncomplicated (2) Chronic cough: Code(s): R05.3 - Chronic cough Category: Medical (3) GERD (gastroesophageal reflux disease): Code(s): K21.9 - Gastro-esophageal reflux disease without esophagitis Category: Medical Qualifiers: Esophagitis bleeding: without hemorrhage Esophagitis presence: with esophagitis Qualified Code(s): K21.00 - Gastro-esophageal reflux disease with esophagitis, without bleeding (4) Chronic rhinitis: Code(s): J31.0 - Chronic rhinitis Category: Medical (5) Dyspnea: Code(s): R06.00 - Dyspnea, unspecified Category: Medical Qualifiers: Dyspnea type: dyspnea on exertion Qualified Code(s): R06.00 - Dyspnea, unspecified (6) Bronchitis: Code(s): J40 - Bronchitis, not specified as acute or chronic Category: Medical Plan start Doxycycline SHASHANK as needed Advair HFA continue Fluticasone 2 sprays each nostril in am (Benzonates as needed for cough did not work) continue zyrtec as needed continue singulair REflux diet HOB elevated at night CXR if no better saline gel to the nose F/U 2-3 months Orders: Orders XR chest 2V Today J45.20 - Mild intermittent asthma, uncomplicated Medications: New albuterol sulfate 90 mcg/actuation 2 puffs inhalation Q4H PRN 8.5 grams 6RF Shortness Of Breath doxycycline hyclate 100 mg PO BID 10 days 20 caps 0RF Coding Level of Care Code Est Pt Level 4 (23969) Diagnoses Mild intermittent asthma without complication J45.20 Asthma complication type: uncomplicated Asthma persistence: intermittent Asthma severity: mild Chronic cough R05.3 Gastroesophageal reflux disease with esophagitis without hemorrhage K21.00 Esophagitis bleeding: without hemorrhage Esophagitis presence: with esophagitis Chronic rhinitis J31.0 Dyspnea on exertion R06.00 Dyspnea type: dyspnea on exertion Bronchitis J40 Time Spent (min) 17
== END 2023-12-19 15:02 | disposition home or self-care (01) ==
PROVIDERS: PCP Student in an Organized Health Care Education/Training Program; Visit Provider Hospitalist
DX: J45.20 Mild intermittent asthma, uncomplicated (principal); R05.3 Chronic cough; K21.00 Gastro-esophageal reflux disease with esophagitis, without bleeding; J31.0 Chronic rhinitis; R06.00 Dyspnea, unspecified; J40 Bronchitis, not specified as acute or chronic
CPT/HCPCS: 99214

== ENCOUNTER → 2023-12-19 14:23 | Outpatient (BNVA) | payer MEDICARE, MEDICAID, SELFPAY | PROVIDERS: PCP Student in an Organized Health Care Education/Training Program; Visit Provider Hospitalist | DX: J40 Bronchitis, not specified as acute or chronic (principal); J45.20 Mild intermittent asthma, uncomplicated; J31.0 Chronic rhinitis; R05.3 Chronic cough; K21.00 Gastro-esophageal reflux disease with esophagitis, without bleeding; R06.00 Dyspnea, unspecified | CPT/HCPCS: 99212 ==

== ENCOUNTER 2024-01-27 11:10 | Outpatient (AMB) | payer MEDICARE, MEDICAID, SELFPAY ==
[2024-01-27 11:12] VITALS: BP 138/60; PULSE 68; O2SAT 97; BMI 32.2
--- NOTE | 2024-01-27 11:12 | MHC.OFFVIS ---
Vital Signs 01/27/24 11:12 Height 5 ft 2 in Weight 176 lb BMI 32.2 BP 138/60 Blood Pressure Location Lt brachial Position Sitting Pulse 68 Pulse Source Doppler Pulse Oximetry (%) 97 Oxygen Delivery Method Room Air Intake Visit Reasons: Dyspnea Allergies dorzolamide [DORZOLAMIDE] Allergy (Intermediate, Verified 12/19/23 14:38) ITCHING, SEVERE EYE REDNESS, redness, discharge from eyes certain eye drop (pt unsure) Allergy (Unknown, Uncoded 12/19/23 14:38) inflammation HPI Comments Details: The patient is an 84-year-old woman with a known history of allergies, chronic rhinitis, mild intermittent asthma presenting today with chronic cough. She has been coughing now for about 5-6 years. The cough has become a nuisance for her. Where she does cough sporadically. When she coughs is usually productive in nature white phlegm. She feels is mainly in the throat area. She has been evaluated before specially by Allergy and was diagnosed with upper airway cough syndrome. She was provided a prescription fluticasone to use. But, she does not use it regularly. She does have a rescue inhaler that she has available that she never uses or feels like she needs. On further questioning she does have reflux symptoms. The patient does have taking PPI in the past but now stopping due to her concerns with osteopenia. She does take Pepcid at this time. The Pepcid is effective for her reflux symptoms. She has had allergy testing in the past for positive for both dogs and cats. She was treated with allergy shots and now is able to be around them without any issues. Otherwise patient is without any other complaints. We did review her imaging studies. She did have an x-ray at [facility] back 02/27/2021 demonstrating no acute disease. 12/25/2022 the patient has a telehealth visit today. Overall the patient has been doing a lot better. She continues with respiratory therapy with good effect. She has not had to use her rescue inhaler more than once or twice a month. Denies any respiratory limitations. The patient did undergo her pulmonary function studies which are reassuring without any evidence of any definitive obstructive nor restrictive ventilatory defects. Although she does have some slight obstructive physiology. Explained to the patient that she may have triggers such as reflux viral illnesses that may potentially trigger her to have significant obstructions. But in the meantime she is doing well on the current regimen. We also reviewed her last chest x-ray that was reassuring. No additional imaging studies are warranted right now. The patient will continue with current respiratory therapy will plan to follow-up in 6 months. 07/25/2023 the patient is here for a pulmonary follow-up visit. Overall she is feeling better. She still coughing on a daily basis but less. The patient continues use her respiratory medicines with good effect. In addition to that we did review her last chest x-ray demonstrating some slight elevation of the left hemidiaphragm with some peribronchial cuffing suggesting some degree of bronchitis. Patient should get a should repeat a chest x-ray since last 1 was more than a year ago. Otherwise she has also been noticing some lower extremity edema. Seems like her right leg is more swollen. She has had issues with her knee but this has been new. She does not take blood thinners. Denies any history of blood clots. The patient has been started on Norvasc last few months. I did explain to her that it may be a side effects on the medication. But if the patient continues to have the lower extremity edema primarily of the right side then a Doppler study will be important to just rule out blood clots. She will continue with the current respiratory therapy. She will receive the Prevnar 20 today. She will follow-up in 6 months. 12/19/2023 the patient is here for sick visit. She is presenting with worsening cough for the last couple months. Usually productive in nature. Typically feels like it is coming from the left lung. She does have sporadic coughing episodes a random times. She has been using the Advair. She never uses the rescue inhaler. The patient did have previous imaging studies with some peribronchial cuffing. We did review her last chest x-ray also the demonstrating some scoliosis and also slight elevation of the left hemidiaphragm. 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 If she is not better she will have an x-ray and she will call. She also has some nasal congestion and some chronic rhinitis with some epistaxis. She is using fluticasone and we talked about the proper use of the fluticasone for avoid the septum and also saline gel or water-based lubricant to help her with the irritation to the mucosa. The patient will return to 3 months. If she has any worsening symptoms or if she is no better she will call. 01/27/2024 the patient is here for a sick visit. She should not feeling any better. She still complaining of dyspnea on exertion. She still has the productive cough with phlegm. Feels like the phlegm is coming from the throat area. Moderate severity. The Advair inhaler has been helping. She is using the HFA formulation with a spacer. Now her insurance is no longer going to be covering it will switch over to Symbicort at that time. In the meantime she had a chest x-ray in 09/28/2023 which I personally reviewed. These increased markings primarily at the bases and also an elevated slight left hemidiaphragm. During the visit we did go for a walking oximetry and she did desaturate down to 92% with activity and she had a dyspnea score of 5/10. At that point she was getting some leg fatigue. She also has some lower extremity edema. 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 Therefore, explained to the patient that she has likely dyspneic because of multifactorial conditions. Unfortunately she also has a history of glaucoma so I can not offer her any additional respiratory medications. Could consider Daliresp to treat her chronic bronchitis. But in view of her chest x-ray and PFTs demonstrating some abnormalities and now they hypoxia with activity I will go ahead and request a CT scan of the chest to better address her underlying pulmonary condition. She has been monitoring closely reflux diet. She did get a wedge pillow but she could not tolerated. I did request that she can increase the head of the bed a little bit to help her with her underlying reflux disease. She is monitoring closely what she eats which is also helping. [facility] Medical History (Updated 01/27/24 @ 12:13 by Jeremy Fish MD) Hypoxia Dyspnea Osteopenia (~2008) HLD (hyperlipidemia) HTN (hypertension) History of breast cancer (~2017) Chronic rhinitis Chronic cough Post-nasal drip COVID-19 vaccine series completed History of syncope On anticoagulant therapy On beta sloan at home GERD (gastroesophageal reflux disease) Deafness in right ear CKD (chronic kidney disease), stage III Asthma Afib Surgical History History of total left knee replacement (TKR) (~2020) History of total right knee replacement (TKR) (~2010) History of colonoscopy History of lumpectomy of right breast (~2017) History of appendectomy Hx of cataract extraction H/O eye surgery Family History (Updated 03/16/22 @ 10:47 by Danielito Wilkinson MD) Mother Essential hypertension Social History Household Members: None Housing: Apartment Are you a primary intensive care unit registered nurse to a significant other at home: No Do you presently have visiting nurse or other home services: No Alcohol intake: unknown Patient Tobacco Use Status: Never used Tobacco Second Hand Smoke Exposure: No Advance Directives Date on File: 03/16/22 service: No Current occupational status: retired Current occupation: rt handed Review of Systems Const Denies body aches, Denies chills, Denies fever(s) and Reports weight gain Eyes Denies change in vision ENT Denies dysphagia, Denies hoarseness, Denies nasal congestion, Denies nasal discharge and Denies post nasal drip Card Denies chest pain and Reports dyspnea on exertion Resp Reports chest congestion, Reports cough, Denies pain with cough, Reports dyspnea on exertion and Denies stridor GI Denies dysphagia, Reports dyspepsia and Reports heartburn Reports no additional complaints Musc Reports no additional complaints Skin/Breast Denies rash Neuro Reports no additional complaints Physical Exam Vital Signs: Last Vital Signs Pulse 68 01/27/24 11:12 BP 138/60 01/27/24 11:12 Pulse Ox 97 01/27/24 11:12 Oxygen Delivery Method Room Air 01/27/24 11:12 BMI result Body Mass Index 32.2 Const General: alert HEENT General nose exam: Abnormal mucous membranes and turbinates present (some bleeding) erythematous Neck Neck: Yes normal visual inspection, Yes full ROM and Yes no lymphadenopathy Chest Chest palpation & inspection: normal inspection of the chest Resp Effort & Inspection: normal respiratory effort Auscultation: no rales, no rhonchi, no wheezes and diminished lung sounds Cardio Rate: regular rate Rhythm: regular rhythm Heart sounds: S1 normal heart sound present and S2 normal heart sound present GI Palpation (GI): Soft to palpation and nontender Auscultation: normal bowel sounds Skin General skin exam: rashes and/or lesions noted Extrem General: Yes edema Assessment & Plan Assessment & Plan (1) Asthma: Code(s): J45.909 - Unspecified asthma, uncomplicated Category: Medical Qualifiers: Asthma complication type: uncomplicated Asthma persistence: intermittent Asthma severity: mild Qualified Code(s): J45.20 - Mild intermittent asthma, uncomplicated (2) Chronic cough: Code(s): R05.3 - Chronic cough Category: Medical (3) GERD (gastroesophageal reflux disease): Code(s): K21.9 - Gastro-esophageal reflux disease without esophagitis Category: Medical Qualifiers: Esophagitis bleeding: without hemorrhage Esophagitis presence: with esophagitis Qualified Code(s): K21.00 - Gastro-esophageal reflux disease with esophagitis, without bleeding (4) Chronic rhinitis: Code(s): J31.0 - Chronic rhinitis Category: Medical (5) Dyspnea: Code(s): R06.00 - Dyspnea, unspecified Category: Medical Qualifiers: Dyspnea type: dyspnea on exertion Qualified Code(s): R06.00 - Dyspnea, unspecified (6) Bronchitis: Code(s): J40 - Bronchitis, not specified as acute or chronic Category: Medical (7) History of breast cancer: Onset Date: ~2017 Comment: (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) Code(s): Z85.3 - Personal history of malignant neoplasm of breast Category: Medical (8) Hypoxia: Code(s): R09.02 - Hypoxemia Category: Medical Plan SHASHANK as needed Advair HFA-->will switch to Symbicort in the beginning of the year as per her insurance continue Fluticasone 2 sprays each nostril in am (Benzonates as needed for cough did not work) continue zyrtec as needed continue singulair REflux diet HOB elevated at night CXR not diagnostic, requesting CT chest saline gel to the nose lasix x 3 days F/U 2-3 months Orders: Orders CT chest wo IV con Today R05.3 - Chronic cough, R06.00 - Dyspnea, unspecified, R09.02 - Hypoxemia, Z85.3 - Personal history of malignant neoplasm of breast Medications: New furosemide (Lasix) 20 mg PO DAILY 3 tabs 0RF inhalational spacing device (Aerochamber MV spacer) As directed 1 ea 0RF Coding Level of Care Code Est Pt Level 4 (89414) Diagnoses Mild intermittent asthma without complication J45.20 Asthma complication type: uncomplicated Asthma persistence: intermittent Asthma severity: mild Chronic cough R05.3 Gastroesophageal reflux disease with esophagitis without hemorrhage K21.00 Esophagitis bleeding: without hemorrhage Esophagitis presence: with esophagitis Chronic rhinitis J31.0 Dyspnea on exertion R06.00 Dyspnea type: dyspnea on exertion Bronchitis J40 History of breast cancer Z85.3 Hypoxia R09.02 Time Spent (min) 17
== END 2024-01-27 11:45 | disposition home or self-care (01) ==
PROVIDERS: PCP Student in an Organized Health Care Education/Training Program; Visit Provider Hospitalist
DX: J45.20 Mild intermittent asthma, uncomplicated (principal); R05.3 Chronic cough; K21.00 Gastro-esophageal reflux disease with esophagitis, without bleeding; J31.0 Chronic rhinitis; R06.00 Dyspnea, unspecified; J40 Bronchitis, not specified as acute or chronic; Z85.3 Personal history of malignant neoplasm of breast; R09.02 Hypoxemia
CPT/HCPCS: 99214

== ENCOUNTER → 2024-01-27 11:10 | Outpatient (BNVA) | payer MEDICARE, MEDICAID, SELFPAY | PROVIDERS: PCP Student in an Organized Health Care Education/Training Program; Visit Provider Hospitalist | DX: J45.20 Mild intermittent asthma, uncomplicated (principal); R05.3 Chronic cough; J31.0 Chronic rhinitis; R06.00 Dyspnea, unspecified; J40 Bronchitis, not specified as acute or chronic; R09.02 Hypoxemia; K21.00 Gastro-esophageal reflux disease with esophagitis, without bleeding; Z85.3 Personal history of malignant neoplasm of breast | CPT/HCPCS: 99212 ==

== ENCOUNTER 2024-03-20 07:32 | Outpatient (REF) | payer MEDICARE, MEDICAID, SELFPAY ==
--- NOTE | ~2024-03-20 | CT_ITS ---
CLINICAL HISTORY: R09.02 - Hypoxemia CT chest without contrast Comparison: Chest x-ray from 09/20/2023 Findings: Multiple pulmonary nodules measure up to 3 mm in the right lower lobe. No pulmonary nodule 4 mm or larger. Mild secretions noted in the imaged trachea. No consolidation, pneumothorax, or pleural effusion. Mild bilateral emphysematous changes and scarring (image number 45 of series 4). Mild/borderline cardiomegaly.Mild mediastinal fluid. Moderate cardiomegaly with multi chamber enlargement of the heart. Vascular calcifications include the tortuous aorta and its branches. Moderate coronary artery calcifications noted. Asymmetry of the imaged glandular tissues nonspecific by CT. Small hiatal hernia. Mild perinephric stranding of the partially imaged abdomen. Moderate volume loss of the imaged pancreas. Subcutaneous edema is noted. Mild rib deformities appear old/chronic. Degenerative changes include imaged shoulders and imaged spine. Mild vertebral height losses appear old chronic. Essentially fusion of the sternum and manubrium. IMPRESSION: 1. Mild secretions in the trachea at the time of the imaging. 2. No consolidation. 3. Small hiatal hernia. This document has been electronically signed by: Shant Franklin MD on 03/21/2024 01:56:33
== END 2024-03-20 07:33 | disposition home or self-care (01) ==
LOC: HO.CT 07:32
PROVIDERS: PCP Student in an Organized Health Care Education/Training Program; Visit Provider Hospitalist
DX: R09.02 Hypoxemia (principal); R06.00 Dyspnea, unspecified; R05.3 Chronic cough; Z85.3 Personal history of malignant neoplasm of breast
CPT/HCPCS: 71250

== ENCOUNTER → 2024-03-20 07:34 | Outpatient (BNV) | payer MEDICARE, MEDICAID, SELFPAY | PROVIDERS: PCP Student in an Organized Health Care Education/Training Program; Visit Provider Radiology Neuroradiology | DX: R09.02 Hypoxemia (principal) | CPT/HCPCS: 71250 ==

== ENCOUNTER 2024-03-25 09:13 | Outpatient (REF) | payer MEDICARE, MEDICAID, SELFPAY | END 2024-03-25 09:14 | disposition home or self-care (01) | LOC: HO.MAMMO 09:13 | PROVIDERS: PCP Student in an Organized Health Care Education/Training Program; Visit Provider Student in an Organized Health Care Education/Training Program | DX: Z12.31 Encounter for screening mammogram for malignant neoplasm of breast (principal) | CPT/HCPCS: 77063; 77067 ==

== ENCOUNTER → 2024-04-15 09:23 | Outpatient (BNVA) | payer MEDICARE, MEDICAID, SELFPAY | PROVIDERS: PCP Student in an Organized Health Care Education/Training Program; Visit Provider Hospitalist | DX: J45.20 Mild intermittent asthma, uncomplicated (principal); J31.0 Chronic rhinitis; J40 Bronchitis, not specified as acute or chronic; R05.3 Chronic cough; K21.9 Gastro-esophageal reflux disease without esophagitis; K44.9 Diaphragmatic hernia without obstruction or gangrene; R06.00 Dyspnea, unspecified; Z85.3 Personal history of malignant neoplasm of breast; Z79.899 Other long term (current) drug therapy | CPT/HCPCS: 99212 ==

== ENCOUNTER 2024-12-01 09:58 | Outpatient (AMB) | payer MEDICARE, MEDICAID, SELFPAY ==
[2024-12-01 10:01] VITALS: BP 154/60; PULSE 52; O2SAT 95; BMI 32.9
--- NOTE | 2024-12-01 10:01 | MHC.OFFVIS ---
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 She has been coughing now for about 5-6 years. The cough has become a nuisance for her. Where she does cough sporadically. When she coughs is usually productive in nature white phlegm. She feels is mainly in the throat area. She has been evaluated before specially by Allergy and was diagnosed with upper airway cough syndrome. She was provided a prescription fluticasone to use. But, she does not use it regularly. She does have a rescue inhaler that she has available that she never uses or feels like she needs. On further questioning she does have reflux symptoms. The patient does have taking PPI in the past but now stopping due to her concerns with osteopenia. She does take Pepcid at this time. The Pepcid is effective for her reflux symptoms. She has had allergy testing in the past for positive for both dogs and cats. She was treated with allergy shots and now is able to be around them without any issues. Otherwise patient is without any other complaints. We did review her imaging studies. She did have an x-ray at [facility] back 02/27/2021 demonstrating no acute disease. 12/25/2022 the patient has a telehealth visit today. Overall the patient has been doing a lot better. She continues with respiratory therapy with good effect. She has not had to use her rescue inhaler more than once or twice a month. Denies any respiratory limitations. The patient did undergo her pulmonary function studies which are reassuring without any evidence of any definitive obstructive nor restrictive ventilatory defects. Although she does have some slight obstructive physiology. Explained to the patient that she may have triggers such as reflux viral illnesses that may potentially trigger her to have significant obstructions. But in the meantime she is doing well on the current regimen. We also reviewed her last chest x-ray that was reassuring. No additional imaging studies are warranted right now. The patient will continue with current respiratory therapy will plan to follow-up in 6 months. 07/25/2023 the patient is here for a pulmonary follow-up visit. Overall she is feeling better. She still coughing on a daily basis but less. The patient continues use her respiratory medicines with good effect. In addition to that we did review her last chest x-ray demonstrating some slight elevation of the left hemidiaphragm with some peribronchial cuffing suggesting some degree of bronchitis. Patient should get a should repeat a chest x-ray since last 1 was more than a year ago. Otherwise she has also been noticing some lower extremity edema. Seems like her right leg is more swollen. She has had issues with her knee but this has been new. She does not take blood thinners. Denies any history of blood clots. The patient has been started on Norvasc last few months. I did explain to her that it may be a side effects on the medication. But if the patient continues to have the lower extremity edema primarily of the right side then a Doppler study will be important to just rule out blood clots. She will continue with the current respiratory therapy. She will receive the Prevnar 20 today. She will follow-up in 6 months. 12/19/2023 the patient is here for sick visit. She is presenting with worsening cough for the last couple months. Usually productive in nature. Typically feels like it is coming from the left lung. She does have sporadic coughing episodes a random times. She has been using the Advair. She never uses the rescue inhaler. The patient did have previous imaging studies with some peribronchial cuffing. We did review her last chest x-ray also the demonstrating some scoliosis and also slight elevation of the left hemidiaphragm. Therefore will go ahead and treat her with doxycycline for bronchitis and also she can picker tender helper some [id number] Mucinex as an expectorant. If she is not better she will have an x-ray and she will call. She also has some nasal congestion and some chronic rhinitis with some epistaxis. She is using fluticasone and we talked about the proper use of the fluticasone for avoid the septum and also saline gel or water-based lubricant to help her with the irritation to the mucosa. The patient will return to 3 months. If she has any worsening symptoms or if she is no better she will call. 01/27/2024 the patient is here for a sick visit. She should not feeling any better. She still complaining of dyspnea on exertion. She still has the productive cough with phlegm. Feels like the phlegm is coming from the throat area. Moderate severity. The Advair inhaler has been helping. She is using the HFA formulation with a spacer. Now her insurance is no longer going to be covering it will switch over to Symbicort at that time. In the meantime she had a chest x-ray in 09/28/2023 which I personally reviewed. These increased markings primarily at the bases and also an elevated slight left hemidiaphragm. During the visit we did go for a walking oximetry and she did desaturate down to 92% with activity and she had a dyspnea score of 5/10. At that point she was getting some leg fatigue. She also has some lower extremity edema. 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 Therefore, explained to the patient that she has likely dyspneic because of multifactorial conditions. Unfortunately she also has a history of glaucoma so I can not offer her any additional respiratory medications. Could consider Daliresp to treat her chronic bronchitis. But in view of her chest x-ray and PFTs demonstrating some abnormalities and now they hypoxia with activity I will go ahead and request a CT scan of the chest to better address her underlying pulmonary condition. She has been monitoring closely reflux diet. She did get a wedge pillow but she could not tolerated. I did request that she can increase the head of the bed a little bit to help her with her underlying reflux disease. She is monitoring closely what she eats which is also helping. 04/15/2024 the patient is here for pulmonary follow-up visit. Overall she is doing okay. She still has spells of productive coughing. Usually some phlegm clears and then her cough improves. She has been using the Advair twice a day. She still has a raspy voice. She is using her spacer. In view of abnormal chest x-ray we went ahead and requested a CT scan of the chest. We personally reviewed. She has had some minimal degree of bronchitis and also some mucus within the airways. Suggesting a chronic bronchitis component. She also has a hiatal hernia. Explained to her that this is likely affecting her underlying cough. We talked about the reflux diet making sure she sleeps elevated. No additional CT scans are warranted. The patient is switch over to Symbicort because that is where the insurance prefers. Will also request an Acapella valve for CPT. 12/01/2024 the patient is here for pulmonary follow-up visit. Overall she is doing about the same. Still complaining of episodes of cough. Although possibly little bit less than usual although still bothers her. Worse when she lays flat. We did talk about the most common reasons for cough which should she likely has all which are reflux disease as she has a small hiatal hernia in addition to upper airway cough syndrome from postnasal drip specially since she has worsening symptoms when she lay flat. And also some reactive airway disease. She is already on treatment for her reactive airway disease with Symbicort she uses it as prescribed. She we talked about sleeping elevated to minimize acid reflux symptoms and micro aspirations. And also continue her H2 sloan. For the upper airway cough syndrome will try her on a 1st generation antihistamine such as chlorpheniramine in addition to using DM as needed for cough. The patient should be using nasal sprays. I will send her Dymista because this will provide her additional therapies just with 1 nasal spray to try to simplify her regimen. Otherwise if it is not covered we have to send the 2 different medications. We did review her CT scan from March 2024 which is very reassuring except for the small hiatal hernia. No evidence of any parenchymal lung disease. The patient will return the springtime if she has any issues prior to this she can always call for further recommendations. [facility] Medical History (Updated 04/15/24 @ 19:07 by Jeremy Fish MD) Hiatal hernia Hypoxia Dyspnea Osteopenia (~2008) HLD (hyperlipidemia) HTN (hypertension) History of breast cancer (~2017) Chronic rhinitis Chronic cough Post-nasal drip COVID-19 vaccine series completed History of syncope On anticoagulant therapy On beta sloan at home GERD (gastroesophageal reflux disease) Deafness in right ear CKD (chronic kidney disease), stage III Asthma Afib Surgical History History of total left knee replacement (TKR) (~2020) History of total right knee replacement (TKR) (~2010) History of colonoscopy History of lumpectomy of right breast (~2017) History of appendectomy Hx of cataract extraction H/O eye surgery Family History (Updated 03/16/22 @ 10:47 by Danielito Wilkinson MD) Mother Essential hypertension Social History Household Members: None Housing: Apartment Are you a primary child care counselor to a significant other at home: No Do you presently have visiting nurse or other home services: No Alcohol intake: unknown Patient Tobacco Use Status: Never used Tobacco Second Hand Smoke Exposure: No Advance Directives Date on File: 03/16/22 service: No Current occupational status: retired Current occupation: rt handed Review of Systems Const Denies body aches, Denies chills, Denies fever(s) and Reports weight gain Eyes Denies change in vision ENT Denies dysphagia, Denies hoarseness, Denies nasal congestion, Denies nasal discharge and Denies post nasal drip Card Denies chest pain and Reports dyspnea on exertion Resp Reports chest congestion, Reports cough, Denies pain with cough, Reports dyspnea on exertion and Denies stridor GI Denies dysphagia, Reports dyspepsia and Reports heartburn Reports no additional complaints Musc Reports no additional complaints Skin/Breast Denies rash Neuro Reports no additional complaints Physical Exam Vital Signs: Last Vital Signs Pulse 52 12/01/24 10:01 BP 154/60 H 12/01/24 10:01 Pulse Ox 95 12/01/24 10:01 Oxygen Delivery Method Room Air 12/01/24 10:01 BMI result Body Mass Index 32.9 Const General: alert HEENT General nose exam: Abnormal mucous membranes and turbinates present (some bleeding) erythematous Neck Neck: Yes normal visual inspection, Yes full ROM and Yes no lymphadenopathy Chest Chest palpation & inspection: normal inspection of the chest Resp Effort & Inspection: normal respiratory effort Auscultation: no rales, no rhonchi, no wheezes and diminished lung sounds Cardio Rate: regular rate Rhythm: regular rhythm Heart sounds: S1 normal heart sound present and S2 normal heart sound present GI Palpation (GI): Soft to palpation and nontender Auscultation: normal bowel sounds Skin General skin exam: rashes and/or lesions noted Extrem General: Yes edema Assessment & Plan Assessment & Plan (1) Asthma: Code(s): J45.909 - Unspecified asthma, uncomplicated Category: Medical Qualifiers: Asthma complication type: uncomplicated Asthma persistence: intermittent Asthma severity: mild Qualified Code(s): J45.20 - Mild intermittent asthma, uncomplicated (2) Chronic cough: Code(s): R05.3 - Chronic cough Category: Medical (3) GERD (gastroesophageal reflux disease): Code(s): K21.9 - Gastro-esophageal reflux disease without esophagitis Category: Medical Qualifiers: Esophagitis bleeding: without hemorrhage Esophagitis presence: with esophagitis Qualified Code(s): K21.00 - Gastro-esophageal reflux disease with esophagitis, without bleeding (4) Chronic rhinitis: Code(s): J31.0 - Chronic rhinitis Category: Medical (5) Dyspnea: Code(s): R06.00 - Dyspnea, unspecified Category: Medical Qualifiers: Dyspnea type: dyspnea on exertion Qualified Code(s): R06.00 - Dyspnea, unspecified (6) History of breast cancer: Onset Date: ~2017 Comment: (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) Code(s): Z85.3 - Personal history of malignant neoplasm of breast Category: Medical (7) Hiatal hernia: Code(s): K44.9 - Diaphragmatic hernia without obstruction or gangrene Category: Medical Plan SHASHANK as needed continue Symbicort equesting acapella valve for CPT continue Fluticasone 2 sprays each nostril in am start astelin nasal spray stop zyrtec as needed start Chlorphiniramine start DM continue singulair REflux diet HOB elevated at night saline gel to the nose F/U 6-8 months Medications: New azelastine-fluticasone 137-50 mcg/spray (Dymista) administer into each nostril 1 spray intranasal BID 23 grams 6RF chlorpheniramine maleate do not exceed 2 doses per 24 hrs 4 mg PO Q8H PRN 60 tabs 6RF itching 30 days dextromethorphan HBr 15 mg PO Q8H PRN 60 caps 6RF cough 30 days Coding Level of Care Code Est Pt Level 4 (81516) Complex EM visit Add On G2211 Diagnoses Mild intermittent asthma without complication J45.20 Asthma complication type: uncomplicated Asthma persistence: intermittent Asthma severity: mild Chronic cough R05.3 Gastroesophageal reflux disease with esophagitis without hemorrhage K21.00 Esophagitis bleeding: without hemorrhage Esophagitis presence: with esophagitis Chronic rhinitis J31.0 Dyspnea on exertion R06.00 Dyspnea type: dyspnea on exertion History of breast cancer Z85.3 Hiatal hernia K44.9 Time Spent (min) 17
--- OUTSIDE RECORDS SUMMARY | 2024-12-01 12:01 | XMS_ITS | Patient Health Record ---
Author Organization [facility] Address [address] [place] [address] Care Team Providers Care Director Food And Beverage Name Role Phone Mathew DUMONT, Erika Primary Care Provider U Kosta Marie [phone] Reason For Referral No Information Plan Of Treatment No Information Insurance Providers Payer Name Payer Address Payer Phone Subscriber Number Group Number Insured Name Patient Relationship to Insured Coverage Start Date Coverage End Date MEDICARE OF [employer]OL[employer] [address] [place] [id number] SR KIMMY ANGELA Self - patient is the insured
--- OUTSIDE RECORDS SUMMARY | 2024-12-01 12:01 | XMS_ITS | Clinical Summary ---
Author Organization [address] [facility] Address [address] [place] [address] Phone Care Team Providers Care Cold Roll Catcher Name Role Phone Meg Griffith MD Primary Care Provider Allergies Active Allergy Reactions Criticality Noted Date Comments Dorzolamide 03/22/2022 And several eye drops Medications apixaban (Eliquis) 5 mg tablet Take 1 tablet (5 mg total) by mouth 2 (two) times a day. 12/16/2023 Active fluticasone propion-salmete roL (ADVAIR HFA) 115-21 mcg/actuation inhaler Inhale 2 Puffs into the lungs 2 times daily. Active atorvastatin (LIPITOR) 20 mg tablet Take 1 tablet (20 mg total) by mouth 1 (one) time each day. Active bisoprolol (ZEBETA) 5 mg tablet Take 1 tablet (5 mg total) by mouth 1 (one) time each day. Active losartan (COZAAR) 100 mg tablet Take 1 tablet (100 mg total) by mouth 1 (one) time each day. Active montelukast (SINGULAIR) 10 mg tablet Take 1 Tablet by mouth at bedtime. Active famotidine (PEPCID) 20 mg tablet Take 20 mg by mouth 2 (two) times a day. Active cholecalciferol (VITAMIN D-3) 25 mcg (1,000 unit) capsule Take 25 mg by mouth daily. Active cetirizine HCl (CETIRIZINE ORAL) Take 10 mg by mouth daily. Active bimatoprost (LUMIGAN OPHT) apply to the eye. Active calcium carbonate (CALCIUM ORAL) Calcium 500 MG Tab Take by mouth. Active flecainide (TAMBOCOR) 50 mg tablet TAKE 1 TABLET TWICE DAILY 180 tablet 1 07/27/2024 Active amLODIPine (NORVASC) 2.5 mg tablet Take 1 tablet (2.5 mg total) by mouth 1 (one) time each day. Active amLODIPine (NORVASC) 5 mg tablet Take 1 tablet (5 mg total) by mouth 1 (one) time each day. Active Symbicort 160-4.5 mcg/actuation inhaler Inhale 2 puffs by mouth 2 (two) times a day. Active Active Problems Problem Noted Date Diagnosed Date Atrial fibrillation ([facility] V24, [facility] V28) 0 03/22/2022 Overview (05/13/2024): Flecainide and bisoprolol therapy Negative nuclear stress test 04/2022 Anticoagulated with apixaban Assessment & Plan (05/13/2024 2:02 PM EST): The patient has not had any clinical recurrence of her atrial fibrillation on flecainide, beta-sloan and anticoagulation with Eliquis. She has not had any bleeding issues. Her EKG is unremarkable. She did not have any ischemia on her recent nuclear stress test. Continue to follow Hypercholesterolemia 03/22/2022 Assessment & Plan (05/13/2024 2:04 PM EST): Well-controlled lipid profile without known CAD. Continue statin at current dose Hypertension 03/22/2022 Assessment & Plan (05/13/2024 2:04 PM EST): Patient's blood pressure is intermittently robust at home, especially in the setting of worry/angst. She has been following her blood pressure per her PCP and plans to see her in a couple of weeks. However, we discussed increasing her amlodipine to 5 mg daily and/or adding a thiazide diuretic such as hydrochlorothiazide or chlorthalidone 12.5 mg once daily and following her blood pressure log. Through shared decision making, we decided to increase her amlodipine to 5 mg daily. If she has any increase in her lower extremity edema, can return back to 2.5 mg daily and trial chlorthalidone 12.5 mg daily. A goal could be to attempt to replace her calcium channel sloan with thiazide diuretic as the patient does have some concern about taking additional pills. She is hopeful that if her blood pressure is better controlled, her general feeling of worry/angst will improve as well Syncope 03/22/2022 Overview (02/20/2024): Last Assessment & Plan: Patient has not had recurrence of her syncope. Her most recent workup from April 2022 is unremarkable. Continue to follow and avoid dehydration Encounters Date Type Department Care Team Description 11/13/2024 3:00 PM EDT Office Visit [facility] - [facility] [address] [facility] [address] [place] [address] Malini Vasquez MD Syncope, unspecified syncope type (Primary Dx) from Last 3 Months Surgical History Surgery Date Site/Laterality Comments OTHER SURGICAL HISTORY PROCEDURE: HISTORY OTHER; COMMENT: Breast Surgery APPENDECTOMY PROCEDURE: HISTORICAL APPENDECTOMY BREAST BIOPSY PROCEDURE: RI BIOPSY BREAST OPEN INCISIONAL CATARACT EXTRACTION PROCEDURE: HISTORICAL CATARACT REMOVAL EYE SURGERY Right PROCEDURE: HISTORICAL EYE SURGERY; COMMENT: 7 surgeries KNEE SURGERY Right PROCEDURE: HISTORICAL KNEE SURGERY; COMMENT: knee replaced TOTAL KNEE ARTHROPLASTY PROCEDURE: HISTORICAL TOTAL KNEE REPLACE OTHER SURGICAL HISTORY 03/08/2021 PROCEDURE: DIAGNOSTIC MAMMOGRAM COLONOSCOPY 02/13/2019 PROCEDURE: HISTORICAL COLONOSCOPY ORTHOPEDIC SURGERY PROCEDURE: HISTORICAL ORTHOPEDIC SURGERY Medical History Medical History Date Comments Mild asthma DX:Mild asthma Chronic kidney disease, stag e 3a ([facility] V24, [facility] V28) DX:Chronic kidney disease, stage 3a ([facility]) GERD (gastroesophageal reflux disease) DX:GERD (gastroesophageal reflux disease) Osteopenia DX:Osteopenia Arthritis of knee DX:Arthritis o f knee Posterior rhinorrhea DX:Posterio r rhinorrhea Anxiety DX:Anxiety Social History Tobacco Use Types Packs/Day Years Used Date Smoking Tobacco: Never Smokeless Tobacco: Never Tobacco Cessation:Counseling Given: Not Answered Alcohol Use Standard Drinks/Week Comments Yes 0 (1 standard drink = 0.6 oz pur e alcohol) Comments Unknown Sex and Gender Information Value Date Recorded Sex Assigned at Not on file Legal Sex Female 7:13 AM EST Gender Identity Not on file Sexual Orientation Not on file Obstetrics History Last Filed Vital Signs Vital Sign Reading Time Taken Comments Blood Pressure 144/62 11/13/2024 2:58 PM EDT Pulse 60 11/13/2024 2:58 PM EDT Temperature - - Respiratory Rate - - Oxygen Saturation 97% 11/13/2024 2:58 PM EDT Inhaled Oxygen Concentration - - Weight 82.1 kg (181 lb) 11/13/2024 2:58 PM EDT Height 160 cm (5' 3 ) 11/13/2024 2:58 PM EDT Body Mass Index 32.06 11/13/2024 2:58 PM EDT Plan of Treatment Upcoming Encounters Date Type Department Care Team (Late st Contact Info) Description 12/03/2024 1:00 PM EDT Ancillary Procedure [facility] - [address] [place] [address] 02/12/2025 12:30 PM EST Ancillary Procedure [facility] - [address] [place] [address] Health Maintenance Due Date Last Done Comments Zoster Vaccines (1 of 2) 01/16/2013 013, 11/09/2012, 03/11/2012 Falls Risk Assessment 02/16/2022 Medicare Annual Wellness Visit 02/16/2022 Social Influencers of Health Screening 02/16/2022 Hypertension/CHF/CAD Annual BMP Blood Test 11/23/2023 11/22/2022 DTaP,Tdap,and Td Vaccines (3 - Td or Tdap) 01/05/2024 01/04/2014, 03/11/2013 Depression Screening 03/11/2024 COVID-19 Vaccine (8 - Pfizer risk season) 2024 12/16/2023, 12/18/2022, 12/25/2021, Additional history exists Influenza Vaccine (#1) 2024 , 12/24/2022, 01/22/2022, Additional history exists Cholesterol Screening (Lipid Panel) 04/09/2027 04/09/2022 Osteoporosis Screening (Bone Density Screening) 03/27/2032 03/27/2022, 03/27/2022, 07/10/2018, Additional history exists Pneumococcal Vaccine: 50+ Years Completed 07/25/2023, 11/18/2014, 03/11/2006 RSV Immunization Adult Patients Completed 12/02/2023 HIB Vaccines Aged Out No longer eligi ble based on patient's age to complete this topic HPV Vaccines Aged Out No longer eligi ble based on patient's age to complete this topic Hepatitis A Vaccines Aged Out No long er eligible based on patient's age to complete this topic Hepatitis B Vaccines Aged Out No long er eligible based on patient's age to complete this topic IPV Vaccines Aged Out No longer eligi ble based on patient's age to complete this topic MMR Vaccines Aged Out No longer eligi ble based on patient's age to complete this topic Meningococcal ACWY Vaccine Aged Out N o longer eligible based on patient's age to complete this topic Meningococcal B Vaccine Aged Out No l onger eligible based on patient's age to complete this topic RSV Immunization Patients Under 20 months Aged Out No longer eligible based on patient's age to complete this topic Varicella Vaccines Aged Out No longer eligible based on patient's age to complete this topic Procedures Procedure Name Priority Date/Time Associated Diagnosis Comments ANNUAL BMP BLOOD TEST Routine 11/22/2022 LIPID PANEL Routine 04/09/2022 [facility] DEXA AXIAL SKELETON Routine 03/27/2022 5:32 PM EST Encounter for screening for osteoporosis from Last 3 Months or Most Recently Relevant to Health Maintenance Results * Annual BMP Blood Test (11/22/2022) Annual BMP Blood Test abstracted Historical Provider MD HEALTH MAINTENANCE Final Result * Lipid panel (04/09/2022) Triglycerides 115 <=150 mg/dL Cholesterol 182 <=200 mg/dL HDL 56 >=39 mg/dL LDL Cholesterol 103 0 - 130 mg/dL Blood Venous blood specimen / Unknown us Historical Provider LAB BLOOD ORDERABLES Lisa l Result * [facility] DEXA AXIAL SKELETON (03/27/2022 5:32 PM EST) Anatomical Region Laterality Modality Mammography 03/27/2022 9:11 AM EST Narrative 03/27/2022 5:32 PM EST [facility] Diagnostic Imaging Department [address] [place] [address] Patient: MARI DUDLEY /Age/Sex: 1940 - 82 - F Unit#: [id number] [facility] Mn[facility]onic/Ordering Site: MAMDEXAAX/SPMAM Ordering Physician: MARVA NEWELL MD [facility] Dexa Axial Skeleton - 03/27/22953 History: Low estrogen state due to menopause. Chronic glucocorticoid use. Height loss. History of breast carcinoma. Comparison: 07/10/18 Findings: Bone densitometry is performed utilizing dual energy x-ray absorptiometry (DXA) in the VidSys unit. The lumbar spine and proximal femora are evaluated in the AP projection. The FRAX questionaire was completed. The results indicate low bone mass (osteopenia), with a right femoral neck T- score of -1.9. The Z score is 0.0, indicating bone mineral density within normal limits relative to age. There has been a small, statistically significant decrease in bone mineral density in the right total femur since the previous study. The detailed DEXA report will be mailed to the referring physician's office. DualFemur FRAX: 10-year Probability of Fracture: Major Osteoporotic 21.5 percent Hip 6.9 percent. IMPRESSION: Osteopenia. [id number] Dictating Physician: ONDINA ROGERS MD Electronically Signed by: ONDINA ROGERS MD Dic Date/Time: 03/27/221729 Sign date/Time: 03/27/221731 Procedure Note Ondina Rogers MD - 04/12/2023 [facility] Diagnostic Imaging Department [address] [place] [address] Patient: MARI DUDLEY D.O.B./Age/Sex: 1940 82 - F Unit#: [id number] Location/Status: SPDIMAM/REG CLI [facility] Ordering Physician: MARVA NEWELL MD [facility] Dexa Axial Skeleton - 03/27/22953 History: Low estrogen state due to menopause. Chronic glucocorticoid use.Height loss. History of breast carcinoma. Comparison: 07/10/18 Findings: Bone densitometry is performed utilizing dual energy x-ray absorptiometry(DXA) in the VidSys unit. The lumbar spine and proximal femora areevaluated in the AP projection. The FRAX questionaire was completed. The results indicate low bone mass (osteopenia), with a right femoral neckT- score of -1.9. The Z score is 0.0, indicating bone mineral density withinnormal limits relative to age. There has been a small, statisticallysignificant decrease in bone mineral density in the right total femur since theprevious study. The detailed DEXA report will be mailed to the referringphysician's office. DualFemur FRAX: 10-year Probability of Fracture: Major Osteoporotic 21.5 percent Hip 6.9 percent. IMPRESSION: Osteopenia. [id number] Dictating Physician: ONDINA ROGERS MD Electronically Signed by: ONDINA ROGERS MD Dic Date/Time: 03/27/22 173 Sign date/Time: 03/27/22 173 Marva Newell MD IMG BI PROCEDURES Final Result from Last 3 Months or Most Recently Relevant to Health Maintenance Insurance MEDICA[place] - [place] MEDICARE Advance Directives Documents on File Type Date Recorded Patient Tool Clerk Expl anation Health Care Decision (hx) 02/04/2018 AD ANDRES DIRECTIVE Health Care Decision (hx) 02/04/2018 AD ANDRES DIRECTIVE Health Care Decision (hx) 02/04/2018 AD ANDRES DIRECTIVE Health Care Decision (hx) 02/04/2018 AD ANDRES DIRECTIVE Health Care Decision (hx) 02/04/2018 AD ANDRES DIRECTIVE Health Care Decision (hx) 02/04/2018 AD ANDRES DIRECTIVE Health Care Decision (hx) 02/04/2018 AD ANDRES DIRECTIVE Health Care Decision (hx) 02/04/2018 AD ANDRES DIRECTIVE Health Care Decision (hx) 02/04/2018 AD ANDRES DIRECTIVE Health Care Decision (hx) 02/04/2018 AD ANDRES DIRECTIVE Health Care Decision (hx) 02/04/2018 AD ANDRES DIRECTIVE Health Care Decision (hx) 02/04/2018 AD ANDRES DIRECTIVE Health Care Decision (hx) 02/04/2018 AD ANDRES DIRECTIVE Health Care Decision (hx) 02/04/2018 AD ANDRES DIRECTIVE Health Care Decision (hx) 02/04/2018 AD ANDRES DIRECTIVE Health Care Decision (hx) 02/04/2018 AD ANDRES DIRECTIVE Health Care Decision (hx) 02/04/2018 AD ANDRES DIRECTIVE Health Care Decision (hx) 02/04/2018 AD ANDRES DIRECTIVE Health Care Decision (hx) 02/04/2018 AD ANDRES DIRECTIVE Health Care Decision (hx) 02/04/2018 AD ANDRES DIRECTIVE Care Teams Cold Roll Catcher Relationship Specialty Start Date End Date Meg Griffith MD [address] [address] PCP - General 11/22/22
--- OUTSIDE RECORDS SUMMARY | 2024-12-01 12:01 | XMS_ITS | Clinical Summary ---
Author Organization [facility] Address [address] [place] [address] Care Team Providers Care Melt Supervisor Name Role Phone Amairani Jansen MD Primary Care Prov ider Allergies Active Allergy Reactions Criticality Noted Date Comments Dorzolamide 04/09/2017 Medications Medication Sig Dispensed Refills Start Date End Date Status furosemide (LASIX) 20 MG tablet Take 20 mg by mouth 2 (two) times a day. 0 Active omeprazole (PRILOSEC) 20 MG capsule Take 20 mg by mouth daily. 0 Active atorvastatin (LIPITOR) tablet 20 mg Take 20 mg by mouth daily. 0 Active latanoprost (XALATAN) 0.005 % ophthalmic solution 1 drop every night at bedtime. 0 Active cholecalciferol (VITAMIN D3) 1000 UNITS tablet Take 1,000 Units by mouth daily. 0 Active Hnuxbkh-Kklnnogei-Mih vo D (CALCIUM 500 PO) Take by mouth. 0 Active aspirin EC 81 MG tablet Take 81 mg by mouth daily. 0 Active montelukast (SINGULAIR) 10 MG tablet Take 10 mg by mouth every night at bedtime. 0 Active irbesartan (AVAPRO) 300 MG tablet Take 300 mg by mouth every night at bedtime. 0 Active famotidine (PEPCID) 20 MG tablet Take 20 mg by mouth 2 (two) times a day. 0 Active apixaban (ELIQUIS) 5 MG TABS tablet Take by mouth every 12 (twelve) hours. 0 Active metoprolol tartrate (LOPRESSOR) 25 MG tablet Take by mouth 2 (two) times a day. 0 Active anastrozole (ARIMIDEX) 1 MG tablet TAKE 1 TABLET BY MOUTH EVERY DAY 90 tablet 3 10/29/2018 Active Active Problems Problem Noted Date Diagnosed Date Malignant neoplasm of lower- outer quadrant of breast of female, estrogen receptor positive 04/09/2017 Family History Medical History Relation Name Comments Cancer Brother Cancer Father Relation Name Status Comments Brother Father Social History Tobacco Use Types Packs/Day Years Used Date Smoking Tobacco: Never Smokeless Tobacco: Never Alcohol Use Standard Drinks/Week Comments Yes 0 (1 standard drink = 0.6 oz pur e alcohol) occasional Sex and Gender Information Value Date Recorded Sex Assigned at Not on file Gender Identity Not on file Sexual Orientation Not on file Job Start Date Occupation Industry Not on file Not on file Not on file Last Filed Vital Signs Vital Sign Reading Time Taken Comments Blood Pressure 140/55 09/19/2021 3:31 PM EDT Pulse 73 09/19/2021 9:09 AM EDT Temperature 36.9 C (98.4 F) 09/19/2021 9:09 AM EDT Respiratory Rate - - Oxygen Saturation 97% 09/19/2021 9:09 AM EDT Inhaled Oxygen Concentration - - Weight 79.8 kg (176 lb) 09/19/2021 9:09 AM EDT Height 160 cm (5' 3 ) 09/19/2021 9:09 AM EDT Body Mass Index 31.18 09/19/2021 9:09 AM EDT Plan of Treatment Health Maintenance Due Date Last Done Comments Depression Screening 1953 BMI Counseling 1959 Preventative Health Evaluation 1959 Shingrix-Zoster Vaccine (1 of 2) 01/04/1960 Fall Risk Assessment 2006 Osteoporosis Screening (DEXA Scan) 2006 RSV Adult > 60+ Yrs or (1 - 1-dose 75+ series) 01/04/2016 DTap / Tdap / Td (3 - Td or Tdap) 01/05/2024 01/04/2014, 03/11/2013 COVID-19 Vaccine ( season) 2024 07/22/2021, 12/12/2020, 05/05/2020, Additional history exists Influenza Vaccine (#1) 2024 , 12/04/2019, 12/04/2019, Additional history exists Pneumococcal Vaccine Completed 11/18/2014, 03/11/19 07 Hepatitis B Vaccines Aged Out No long er eligible based on patient's age to complete this topic RSV Ped < 20 months Aged Out No longe r eligible based on patient's age to complete this topic Care Teams Melt Supervisor Relationship Specialty Start Date End Date Amairani Jansen MD [address] [facility] [address] [place] [address] PCP - General Internal Medicine 04/09/17
--- OUTSIDE RECORDS SUMMARY | 2024-12-01 12:01 | XMS_ITS | Patient Health Record ---
Author Organization [facility] Address [address] [facility] [place] [address] Care Team Providers Care Color Paste Mixer Name Role Phone Meg Griffith Primary Care Provider Unavail able Dayan Coles Unavailable [phone] Barb Hearn Unavailable [phone] Allergies Allergen (clinical drug ingredient) Drug/Non Drug Allergy documented on EMR Reaction Allergy Type Onset Date Status tetrahydrozoline Eye Drops SOME- redness, itchy Drug Allergy Active Reason For Referral No Information Medications Medication SIG (Take, Route, Frequency, Duration) Notes Start Date End Date Status Fluticasone Propionate 50 MCG/ACT 1 spray in each nostril Nasally Once a day Active eliquis 5 mg Active Flecainide Acetate 50 MG as directed Orally Active Bisoprolol Fumarate 2.5mg Active Advair HFA 115-21 MCG/ACT 2 puffs Inhala tion Twice a day Not-Taking Calcium 500 MG 1 tablet with meals Orally Twice a day Active amLODIPine Besylate 2.5 MG 1 tablet Orally Once a day Active Vitamin D3 Active Atorvastatin Calcium 20 MG 1 tablet Orally Once a day Active ZyrTEC 10 MG 1 tablet Orally Once a day Active Montelukast Sodium 10 MG 1 tablet Orally Once a day Active Symbicort Active Pepcid AC 10 MG 1 tablet as needed Orally Twice a day Active Losartan Potassium 100 MG 1 tablet Orall y Once a day Active Lumigan Active Immunizations Vaccine Route Administration Date Status Comme nts Influenza Unknown 11/11/2023 Administered Social History Tobacco Use: Social History Observation Description Date Details (start date - stop date) Never Smoker NA - NA Tobacco use other than smoking: Question Answer Notes Are you an other tobacco user? No Tobacco Control (Standard) Question Answer Notes Tobacco use: Nonsmoker Additional Findings: Tobacco non-user Current no nsmoker AUDIT-C (Standard) Question Answer Notes Did you have a drink contain ing alcohol in the past year? Yes How often did you have a dri nk containing alcohol in the past year? 2 to 4 times a month (2 points) How many drinks did you have on a typical day when you were drinking in the past year? 1 or 2 drinks (0 point) How often did you have six o r more drinks on one occasion in the past year? Never (0 point) Points 2 Interpretation Negative Problems Problem Type SNOMED Code ICD Code Onset Dates Problem Status W/U Status Risk Notes Problem Acquired hallux valgus (14435960) Hallux valgus (acquired), left foot (M20.12) Active confirmed Problem Acquired hallux valgus (22584813) Hallux valgus (acquired), right foot (M20.11) Active confirmed Problem Acquired hammer toe of right foot (4185963556893 105) Other hammer toe(s) (acquired), right foot (M20.41) Active confirmed Problem Acquired hammer toe of left foot (3589157606957 103) Other hammer toe(s) (acquired), left foot (M20.42) Active confirmed Vital Signs Blood pressure diastolic 70 mm Hg 07/24/2024 Height 5ft 3in in 10/02/2024 Blood pressure systolic 130 mm Hg 07/24/2024 Weight 178 lbs 10/02/2024 BMI 31.53 kg/m2 10/02/2024 Procedures Procedure Date Ordered Date Performed Result Body Sit e 97778-KRCEZQM NAIL, 6 OR MORE 03/09/2024 N/A [id number] NAIL, 6 OR MORE 07/24/2024 N/A [id number] NAIL, 6 OR MORE 10/02/2024 N/A Encounters Encounter Location Date Provider Diagnosis [facility] [place] [address] [place] [address] 03/09/2024 Dayan Coles Pain in right toe(s) M79.674 ; Onychomycosis B35.1 and Pain in left toe(s) M79.675 [facility] [place] [address] [place] [address] 05/19/2024 Barb Hearn Onychomycosis B35.1 ; Hallux valgus (acquired), right foot M20.11 ; Pain in right toe(s) M79.674 ; Pain in left toe(s) M79.675 and Pain in right foot M79.671 [facility] [address] 07/24/2024 Dayan Coles Pain in right toe(s) M79.674 ; Onychomycosis B35.1 and Pain in left toe(s) M79.[address] [facility] [address] 10/02/2024 Dayan Coles Pain in right toe(s) M79.674 ; Onychomycosis B35.1 and Pain in left toe(s) M79.675 Assessments Encounter Date Diagnosis (ICD Code) Assessment Notes Treatment Notes Treatment Clinical Notes Section Notes 03/09/2024 Pain in right toe(s) (ICD-10 - M79.674) 05/19/2024 Hallux valgus (acquired), right foot (ICD-10 - M20.11) 05/19/2024 Onychomycosis (ICD-10 - B35.1) 07/24/2024 Pain in right toe(s) (ICD-10 - M79.674) 10/02/2024 Pain in right toe(s) (ICD-10 - M79.674) 10/02/2024 Onychomycosis (ICD-10 - B35.1) 07/24/2024 Onychomycosis (ICD-10 - B35.1) 05/19/2024 Pain in right toe(s) (ICD-10 - M79.674) 03/09/2024 Onychomycosis (ICD-10 - B35.1) 05/19/2024 Pain in left toe(s) (ICD-10 - M79.675) 03/09/2024 Pain in left toe(s) (ICD-10 - M79.675) 07/24/2024 Pain in left toe(s) (ICD-10 - M79.675) 10/02/2024 Pain in left toe(s) (ICD-10 - M79.675) 05/19/2024 Pain in right foot (ICD-10 - M79.671) Plan Of Treatment Pending Test Test Name Order Date [id number] NAIL, 6 OR MORE 03/09/2024 [id number] NAIL, 6 OR MORE 07/24/2024 [id number] NAIL, 6 OR MORE 10/02/2024 Next Appt Details Provider Name:Dayan meyer, 12/15/2024 01:30:00 PM, [address] [facility], [facility] [address], [place], [address], Insurance Providers Payer Name Payer Address Payer Phone Subscriber Number Group Number Insured Name Patient Relationship to Insured Coverage Start Date Coverage End Date Medicare National [employer] [address] [place] [address] [id number] [facility] - patient is the insured Medical (General) History Medical History History ICD Code asthma Back,Hip,and Knee pain Cancer Cataracts covid-19 Glaucoma High blood pressure Psoriasis/eczema Measles Mumps Chicken pox Joint implants/screws Bone implants/screws Transfusions A fib Surgical History Surgery Date(Month/Year) eye surgery, 7 8770-1239 knee replacement 2020 lumpectomy 2017
--- OUTSIDE RECORDS SUMMARY | 2024-12-01 12:01 | XMS_ITS | Clinical Summary ---
Author Organization [facility] Address [address] [place] [address] [address] [place] [address] Phone Care Team Providers Care Structural Technician Name Role Phone Amairani Jansen MD Primary Care Prov ider Allergies Active Allergy Reactions Criticality Noted Date Comments Dorzolamide Other (See Comments) 01/15/2017 Follicles, injection Other reaction(s): Risedronate Eyebright 07/06/2013 Risedronate 10/10/2021 Medications atorvastatin (LIPITOR) 20 MG tablet 7 Active fluticasone propionate (FLONASE) 50 mcg/actuation nasal spray INHALE 2 SPRAY(S) EVERY DAY BY INTRANASAL ROUTE. 11 7 Active furosemide (LASIX) 20 MG tablet 7 Active irbesartan (AVAPRO) 300 MG tablet 7 Active omeprazole (PRILOSEC) 20 MG capsule Take 20 mg by mouth every other day. 11 7 Active cholecalciferol (VITAMIN D3) 1,000 unit tablet Take 1,000 Units by mouth daily. Active calcium carbonate 500 mg (200 mg elemental) chewable tablet Take 1 tablet by mouth daily. Active aspirin 81 MG EC tablet Take 81 mg by mouth daily. Active anastrozole (ARIMIDEX) 1 mg tablet Take 1 mg by mouth daily. 5 8 Active montelukast (SINGULAIR) 10 mg tablet Take 10 mg by mouth nightly. at bedtime. 3 8 Active omeprazole (PRILOSEC) 20 MG capsule omeprazole 20 mg capsule,delayed release Active oxyCODONE 5 MG immediate release tablet oxycodone 5 mg tablet Active albuterol 90 mcg/actuation inhaler ProAir HFA 90 mcg/actuation aerosol inhaler Active amoxicillin (AMOXIL) 500 MG capsule amoxicillin 500 mg capsule Active ciclopirox (LOPROX) 1 % shampoo ciclopirox 1 % shampoo Active desonide (DESOWEN) 0.05 % lotion desonide 0.05 % lotion Active ketoconazole (NIZORAL) 2 % shampoo ketoconazole 2 % shampoo Active ketoconazole 2 % cream ketoconazole 2 % topical cream Active risedronate (ACTONEL) 150 MG tablet risedronate 150 mg tablet Active peg-electrolyte soln (NULYTELY) 420 gram SolR peg-electrolyte solution 420 gram oral solution Active zolpidem (AMBIEN) 5 MG tablet zolpidem 5 mg tablet Active INCRUSE ELLIPTA 62.5 mcg/actuation inhalation capsule TAKE 1 PUFF BY MOUTH EVERY DAY 3 9 Active apixaban (ELIQUIS) 5 mg (74 tabs) tablets in DVT/PE starter pack Take by mouth. Activ e metoprolol succinate (TOPROL-XL) 25 MG 24 hr tablet Take 25 mg by mouth daily. 11 9 Active famotidine (PEPCID) 20 MG tablet Take 20 mg by mouth. Active flecainide (TAMBOCOR) 50 MG tablet Take 50 mg by mouth every 12 (twelve) hours. 1 Active betamethasone dipropionate 0.05 % cream APPLY TO ECZEMA ON ARMS/LEGS 2 DAILYX 2-3 WEEKS TO ECZEMA ON CHEEK ONCE DAILY FOR UP TO 2 WKS. 1 Active latanoprost (XALATAN) 0.005 % ophthalmic solutionIndicati ons:Primary open angle glaucoma of right eye, severe stage,Primary open angle glaucoma of left eye, mild stage INSTILL 1 DROP INTO BOTH EYES EVERY NIGHT 2.5 mL 6 1 Active amLODIPine (NORVASC) 5 MG tablet TAKE 1 TABLET BY MOUTH EVERY DAY DIRECTED FOR 90 DAYS 1 Active latanoprost (XALATAN) 0.005 % ophthalmic solutionIndicati ons:Primary open angle glaucoma of right eye, severe stage INSTILL 1 DROP INTO BOTH EYES EVERY NIGHT (BOTTLE EXPIRES 42 DAYS AFTER OPENING) 10 mL 3 2 Active bisoprolol (ZEBETA) 5 MG tablet Take 5 mg by mouth daily. 2 Active OPTICHAMBER [facility] Spcr as directed. 2 Active losartan (COZAAR) 25 MG tablet Take 25 mg by mouth daily. 2 Active ELIQUIS 5 mg tablet 2 Active LUMIGAN 0.01 % DropIndications: Primary open angle glaucoma of right eye, severe stage,Primary open angle glaucoma of left eye, mild stage PLACE 1 DROP INTO EACH EYE NIGHTLY AT BEDTIME. 2.5 mL 6 5 Active benzonatate (TESSALON) 200 MG capsule TAKE 1 CAPSULE ORALLY 2 TIMES A DAY NEEDED FOR COUGH FOR 30 DAYS 5 Active amoxicillin-clav ulanate (AUGMENTIN) 875-125 mg per tablet Take 1 tablet by mouth 2 (two) times a day. 5 Active Active Problems Problem Noted Date Diagnosed Date Malignant neoplasm of lower- outer quadrant of breast of female, estrogen receptor positive 04/09/2017 Primary open angle glaucoma of left eye, mild st age 0204/23/2016 Epiretinal membrane (ERM) of both eyes 4 Overview (05/01/2014): ERM - Epiretinal membrane - [facility]U Osteoporosis 05/01/2011 Overview (05/01/2014): Osteoporosis Gastroesophageal reflux disease 12/25/2010 Overview (05/01/2014): Acid reflux Hypercholesterolemia 12/25/2010 Overview (05/01/2014): Hypercholesterolemia Primary open angle glaucoma of right eye, severe stage 06/08/2009 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 Not on delmi e 07/05/2022 Are you concerned about learning? Not on file 07/05/2022 No 07/05/2022 No 07/05/2022 Digital Access Answer Date Recorded No 08/06/2022 No 08/06/2022 Reliable internet access at home? Not on file 08/06/2022 Device with a working camera? Not on file Comments Unknown Sex and Gender Information Value Date Recorded Sex Assigned at Not on file Legal Sex Female 5:09 AM EST Gender Identity Not on file Sexual Orientation Not on file Plan of Treatment Upcoming Encounters Date Type Department Care Team ([facility] Contact Info) Description 02/18/2025 1:00 PM EST Procedure visit [facility] in [address] [address] 02/18/2025 1:30 PM EST [facility] Visit [facility] [address] [address] Amina Murray MD [address] [place] [address], [address] [place] [address] [email or web address] 02/18/2025 1:45 PM EST Procedure visit [facility] [address] [address] Health Maintenance Due Date Last Done Comments CREATININE LEVEL 1941 POTASSIUM LEVEL 1941 DEPRESSION SCREENING 1953 OSTEOPOROSIS SCREENING INITIAL (ONE-TIME) 2006 ZOSTER VACCINES (1 of 2) 01/16/2013 013, 11/09/2012, 03/11/2012 RSV VACCINE (1 - 1-dose 75+ series) 01/04/2016 Adult Td,Tdap Booster 01/05/2024 01/04/2014, 014 INFLUENZA VACCINE (#1) 2024 2, 12/20/2020, 12/04/2019, Additional history exists COVID-19 VACCINE ( season) 2024 12/25/2021, 07/22/2021, 12/12/2020, Additional history exists PNEUMOCOCCAL VACCINES (50+ years) Completed 11/18/2014, 03/11/2006 HEPATITIS A VACCINES Aged Out No long er eligible based on patient's age to complete this topic HIB VACCINES Aged Out No longer eligi ble based on patient's age to complete this topic MENINGOCOCCAL VACCINES (ACWY) Aged Out No longer eligible based on patient's age to complete this topic MENINGOCOCCAL VACCINES (B) Aged Out N o longer eligible based on patient's age to complete this topic Medical Devices Not on file Insurance MEDICARE PART A & B [facility] MEDICARE PART A & B [facility] [address] [place] [address] Care Teams Structural Technician Relationship Specialty Start Date End Date Amairani Jansen MD [address] [place] [address] [address] [place] [address] PCP - General Internal Medicine 04/26/16 Additional Source Comments The information contained in this document represents components of the legal health record. It is not the complete legal health record.[facility]
== END 2024-12-01 10:32 | disposition home or self-care (01) ==
LOC: HO.HPS 09:58
PROVIDERS: PCP Student in an Organized Health Care Education/Training Program; Visit Provider Hospitalist
DX: J45.20 Mild intermittent asthma, uncomplicated (principal); R05.3 Chronic cough; K21.00 Gastro-esophageal reflux disease with esophagitis, without bleeding; J31.0 Chronic rhinitis; R06.00 Dyspnea, unspecified; Z85.3 Personal history of malignant neoplasm of breast; K44.9 Diaphragmatic hernia without obstruction or gangrene
CPT/HCPCS: 99214; G2211

== ENCOUNTER → 2024-12-01 09:58 | Outpatient (BNVA) | payer MEDICARE, MEDICAID, SELFPAY | PROVIDERS: PCP Student in an Organized Health Care Education/Training Program; Visit Provider Hospitalist | DX: J45.20 Mild intermittent asthma, uncomplicated (principal); R05.3 Chronic cough; R06.00 Dyspnea, unspecified; J31.0 Chronic rhinitis; M79.89 Other specified soft tissue disorders; K21.00 Gastro-esophageal reflux disease with esophagitis, without bleeding; K44.9 Diaphragmatic hernia without obstruction or gangrene; Z85.3 Personal history of malignant neoplasm of breast | CPT/HCPCS: 99212 ==